=== PATIENT | female | born 1980 | race Caucasian/White ===

== ENCOUNTER → 2020-02-13 15:10 | Outpatient (CLI) | payer OTHER, SELFPAY ==
--- NOTE | 2020-02-13 15:13 | XR_ITS ---
PROCEDURE: XR FOOT LT MIN 3V CLINICAL INDICATION: PLANTAR FASCITIS COMPARISON: No exams were available for comparison FINDINGS: No fracture or dislocation. No lytic or blastic change. There is normal mineralization. The joint spaces are well-preserved. No significant degenerative/arthritic changes. No erosive changes evident. Other findings:None. IMPRESSION: No acute findings. Dictated by: Dr. He Rivero MD 02/13/2020 15:36 Dr. He Rivero MD in [place] 02/13/2020 15:36
== END ==
PROVIDERS: PCP Family Medicine; Visit Provider Nurse Practitioner Family
DX: M72.2 Plantar fascial fibromatosis (principal)
CPT/HCPCS: 73630

== ENCOUNTER 2020-05-31 21:42 | Emergency (ER) | payer OTHER, SELFPAY ==
[2020-05-31] VITALS (12 sets, daily range): BP systolic 103–160; BP diastolic 68–88; PULSE 78–109; RESP 12–22; TEMP 36.6; O2SAT 95–100; BMI 23.8; BMI 29.1
--- NOTE | 2020-05-31 21:56 | XR_ITS ---
PROCEDURE: XR ANKLE RT MIN 3V Referring Doctor: Gildardo Terry Patient Age:39Y CLINICAL INDICATION: fall Sledding accident with dislocation COMPARISON: DX XR FOOT LT MIN 3V from 02/13/2020 CR XR ANKLE RT MIN 3V from 05/31/2020 TECHNIQUE: Right ankle: Portable 3 View: AP, Oblique lateral and:, Lateral FINDINGS: Severe dislocation of the proximal foot, with most evident dislocation and distraction at talar-navicular joint. The navicular has dislocated dorsal and medial relative to the talus.. this is best seen on the AP view-this dislocation results in prominent medial/Varus tilt of the forefoot Would be suspect of some associated subluxation/displacement of the cuboid relative to the calcaneus as well although this is less well-defined The ankle joint itself is intact. Specifically tibial talar joint is intact IMPRESSION: Severe dislocation proximal right foot. . Most severe prominent and evident dislocation is seen at the talar navicular joint . Prominent medial/Varus tilt of the forefoot distal to this point Dictated by: Piter Jasso MD 06/01/2020 15:11 Piter Jasso MD in [place] 06/01/2020 15:11
--- NOTE | 2020-05-31 22:06 | XR_ITS ---
PROCEDURE: XR ANKLE RT MIN 3V Referring Doctor: Gildardo Terry Patient Age:39Y CLINICAL INDICATION: Post reduction COMPARISON: CR XR ANKLE RT MIN 3V from 05/31/[address] FOOT RT WO CON from 05/31/2020 TECHNIQUE: Right ankle 3 View AP, Oblique, Lateral FINDINGS: Post reduction right ankle images performed at 2212 hours compared to the initial right ankle study at 2158 hours Previously there was severe dislocation seen at the proximal foot with complete dislocation of the tarsal navicular from the talus. There was dorsal medial dislocation of tarsal navicular versus talus This study shows at anatomical relationships have been reestablished at the talar-navicular joint There seems to be normal relationships and appropriate articulation between the cuboid and distal calcaneus evident as well on this series of images. The ankle mortise remains stable and intact-dome of talus intact, medial and lateral malleolus intact. Only question some minor roughening at the medial margin of the talus which could reflect a subtle fracture here. No prominent displaced fractures readily apparent on plain film but would recommend CT to further evaluate given the severe injury IMPRESSION: The severe dislocation has been reduced with normal relationships reestablished at the talus-navicular articulation Dictated by: Piter Jasso MD 06/01/2020 20:35 Piter Jasso MD in [place] 06/01/2020 20:35
--- NOTE | 2020-05-31 22:36 | HMH.EDLOEX ---
ED Disposition Clinical Impression: Closed dislocation of right talus Qualifiers: Encounter type: initial encounter Qualified Code(s): S93.04XA - Dislocation of right ankle joint, initial encounter Talar fracture Qualifiers: Encounter type: initial encounter Fracture type: closed Talus location: unspecified portion of talus Fracture alignment: displaced Laterality: right Qualified Code(s): S92.101A - Unspecified fracture of right talus, initial encounter for closed fracture Calcaneus fracture, right Qualifiers: Encounter type: initial encounter Calcaneus location: unspecified portion of calcaneus Fracture type: closed Fracture alignment: displaced Qualified Code(s): S92.001A - Unspecified fracture of right calcaneus, initial encounter for closed fracture Disposition: Home, Self-Care Condition on Discharge: Serious Instructions: DI for Foot Fracture Additional Instructions: elevate and ice and see dr mnotaño 1100 am wednesday Prescriptions: Ketorolac Tromethamine [Toradol 10mg tablet] 10 mg PO Q6H 3 Days #12 tab [facility] ondansetron HCL [Zofran 4mg Tab] 4 mg PO Q6H #20 tab Transmission Status: [facility] Referrals: Sebastien Damon MD [Primary Care Provider] - - Critical Care Critical Care Time: No Attestation: On 05/31/20, the high probability of a clinically significant, sudden or life threatening deterioration of the following system(s) required my full and direct attention, intervention and personal management. The time I documented below is in addition to time spent performing reported procedures but includes the following listed in this critical care notation. Medical Decision Making - Medical Records Medical records reviewed: Yes: I reviewed the patient's medical records. - Sacha Inquiry Pt receiving controlled substance: No Vital Signs: 05/31/20 21:44 Temperature 97.8 F Temperature Source Oral Pulse Rate [Right] 108 H Respiratory Rate 22 Blood Pressure [Right Arm] 160/75 H Blood Pressure Mean [Right Arm] 103 02 Sat by Pulse Oximetry 98 - Lab Data Lab results reviewed: Yes: I reviewed the patient's lab results. Orders (Tests/Meds): ED MEDICATIONS Discontinued Medications Generic Name Dose Route Start Last Admin Trade Name Freq PRN Reason Stop Dose Admin Hydromorphone HCl 1 mg 05/31/20 23:38 05/31/20 23:40 Hydromorphone 2mg/Ml Syringe IV 05/31/20 23:39 1 mg ONCE ONE Administration Morphine Sulfate 4 mg 05/31/20 21:56 05/31/20 21:56 Morphine 4mg/Ml Syringe IV 05/31/20 21:57 4 mg ONCE ONE Administration Ondansetron HCl 4 mg 05/31/20 21:56 05/31/20 21:56 Ondansetron 4mg/2ml Vial IV 05/31/20 21:57 4 mg ONCE ONE Administration ORDERS Category Date Time Status CT ankle RT wo con Stat Cat Scan 05/31/20 22:[address] foot RT wo con Stat Cat Scan 05/31/20 22:40 Taken Ankle XR -Right minimum 3 Views [XR ankle RT min 3V] Exams 05/31/20 21:56 Taken Stat Ankle XR -Right minimum 3 Views [XR ankle RT min 3V] Exams 05/31/20 22:06 Taken Stat - Radiology Data #1 Image(s): Ankle, Foot/Toes Image Reviewed: Yes I reviewed the patient's radiology image Preliminary Findings: Abnormal (dislocation talar) - CT Data CT Scan: Other (foot and ankle ) Time Received: 00:[address] Reviewed: Yes: I have viewed the radiologist's interpretation Preliminary Findings: Abnormal (see report ) - Physician Consults Physician Consulted: sabra Reason -: Pt condition - Reevaluation(s) Time: 00:04 Reevaluation #1: doing better Medical Decision Narrative: fracture talusand fx calcaneus - reduced and no wt bearing and see dr montaño 1100 am wednesday Lower Extremity Injury HPI - General Chief Complaint: Extremity Injury, Lower Stated Complaint: AO [id number] Injured R ankle Time Seen by Provider: 05/31/20 21:45 Mode of Arrival: Wheelchair Source of Information: Mateo
--- NOTE | 2020-05-31 22:40 | CT_ITS ---
PROCEDURE: CT FOOT RT WO CON CT ANKLE RT WO CON Referring Doctor: Gildardo Terry Patient Age:39Y CLINICAL HISTORY: accident Sledding accident dislocated foot at talar navicular joint. Marcy reduction CT COMPARISON: DX XR FOOT LT MIN 3V from 02/13/[address] ANKLE RT WO CON from 05/31/[address] FOOT RT WO CON from 05/31/2020 CR XR ANKLE RT MIN 3V from 05/31/2020 CR XR ANKLE RT MIN 3V from 05/31/2020 TECHNIQUE: No IV contrast Helical axial images obtained with sagittal and coronal reformats. All CT scans at the facility use one or more dose reduction, viz: automated exposure control, ma/kV adjustment per patient size (including targeted exams where dose is matched to indication, i.e. head), or iterative reconstruction technique. FINDINGS: The CT images of ankle and foot were obtained post reduction CT RIGHTANKLE: Right ankle mortise intact dome of talus intact medial lateral and posterior malleolus intact. Medial right talus fracture: Acute fracture fragment along medial posterior aspect the talus, at posterior facet... The main fracture fragment measuring up to 10 mm AP x 11 mm vertical X nearly 6 mm maximum transverse, with small comminuted fracture fragments along its anterior margin. Also small erna flake fragment posteriorly. Minimal distraction along fracture/only scant displacement Again the slight comminuted appearance seen mainly along its anterior aspect but also noted posteriorly.. This the This fracture fragment may impinge upon the course of the flexor hallucis longus tendon.. There is also subtle very thin flake, cortical sliver fragment measure up to 7 mm transverse the a 5 mm AP seen at the medial subtalar joint associated with this injury. Lateral calcaneus fracture: Laterally there is a subtle fracture off the superior lateral aspect margin of the anterior process calcaneus. Mildly comminuted. A a displaced dominant fracture fragment measuring 8 mm X a 11 mm AP x 2 mm wide with approximately 1 cm superior displacement, CT RIGHTFOOT IMAGES: Forefoot intact with no fractures. The toes, MTP joints, metatarsal, tarsal-metatarsal joints and intact but the distal tarsals appear intact specifically cuneiforms and cuboid intact. Question a very subtle nondisplaced fracture line of involving superior cortex at the lateral navicular the but equivocal but noted. IMPRESSION: CT RIGHT ANKLE: -MEDIAL TALUS FRACTURE-mildly displaced comminuted fracture involving the medial process the talus. Tiny comminuted fracture fragments a about its margin. Possible impingement at of this fracture upon flexor hallucis longus tendon. . Subtle very thin linear flake fracture medial subtalar joint. -LATERAL CALCANEUS FRACTURE- Comminuted fracture with displaced fracture involving the lateral/superior margin of the anterior process of the calcaneus. The dominant fracture here measures 8 X 11 X 2 mm with approximately 1 cm superior displacement. . Only questionable nondisplaced hairline fracture at superior cortex medial navicular the a seen on coronal ankle images. CT RIGHT foot: Forefoot intact, distal tarsals intact I would note that at anatomic relationships have reestablished at talar navicular joint on this post reduction CT study right ankle/foot Dictated by: Piter Jasso MD 06/01/2020 15:36 Piter Jasso MD in [place] 06/01/2020 15:36
--- NOTE | 2020-05-31 22:40 | CT_ITS ---
PROCEDURE: CT FOOT RT WO CON CT ANKLE RT WO CON Referring Doctor: Gildardo Terry Patient Age:39Y CLINICAL HISTORY: accident proximal foot talar navicular joint Sledding accident dislocated foot at talar navicular joint. Post reduction CT imaging COMPARISON: DX XR FOOT LT MIN 3V from 02/13/2020 CR XR ANKLE RT MIN 3V from 05/31/[address] ANKLE RT WO CON from 05/31/2020 CR XR ANKLE RT MIN 3V from 05/31/[address] FOOT RT WO CON from 05/31/2020 TECHNIQUE: No IV contrast Helical axial images obtained with sagittal and coronal reformats. All CT scans at the facility use one or more dose reduction, viz: automated exposure control, ma/kV adjustment per patient size (including targeted exams where dose is matched to indication, i.e. head), or iterative reconstruction technique. FINDINGS: The CT images of Right Ankle And Foot were obtained post reduction CT RIGHTANKLE: Right ankle mortise intact dome of talus intact medial lateral and posterior malleolus intact. MEDIAL RIGHT TALUS FRACTURE: Acute fracture fragment along medial posterior aspect the talus, at posterior facet... The main fracture fragment measuring up to 10 mm AP x 11 mm vertical X nearly 6 mm maximum transverse, with small comminuted fracture fragments along its anterior margin. Also small erna flake fragment posteriorly. Minimal distraction along fracture/only scant displacement Again the slight comminuted appearance seen mainly along its anterior aspect but also noted posteriorly.. This the This fracture fragment may impinge upon the course of the flexor hallucis longus tendon.. There is also subtle very thin flake, cortical sliver fragment measure up to 7 mm transverse the a 5 mm AP seen at the medial subtalar joint associated with this injury. LATERAL CALCANEUS FRACTURE: Laterally there is a subtle fracture off the superior lateral aspect margin of the anterior process calcaneus. Mildly comminuted. A a displaced dominant fracture fragment measuring 8 mm X a 11 mm AP x 2 mm wide with approximately 1 cm superior displacement, CT RIGHT FOOT IMAGES: Forefoot intact with no fractures. The toes, MTP joints, metatarsal, tarsal-metatarsal joints and intact but the distal tarsals appear intact specifically cuneiforms and cuboid intact. Question a very subtle nondisplaced fracture line of involving superior cortex at the lateral navicular the but equivocal but noted. IMPRESSION: CT RIGHT ANKLE: -MEDIAL TALUS FRACTURE-mildly displaced comminuted fracture involving the medial process the talus with tiny comminuted fracture fragments about the dominant fragment. Possible impingement at of this fracture upon flexor hallucis longus tendon. . Subtle very thin linear flake fracture seen at medial subtalar joint. -LATERAL CALCANEUS FRACTURE- Comminuted fracture with displaced fracture involving the lateral/superior margin of the anterior process of the calcaneus. The dominant fracture here measures 8 X 11 X 2 mm with approximately 1 cm superior displacement. . Only questionable nondisplaced hairline fracture at superior cortex medial navicular the a seen on coronal ankle images. CT RIGHT foot: Remaining forefoot intact, distal metatarsals intact. Toes intact Also note that this post reduction CT does shows that anatomic relationships were reestablished at this talar navicular joint from the prior severe dislocation at the talar navicular joint. Dictated by: Piter Jasso MD 06/01/2020 21:32 Piter Jasso MD in [place] 06/01/2020 21:32
--- NOTE | 2020-05-31 22:43 | PC.NURSE ---
justyn on phone with dr montaño @ this time
[2020-06-01 00:51] VITALS: BP 130/90; PULSE 89; RESP 16; TEMP 36.5; O2SAT 97
== END 2020-06-01 00:53 | disposition home or self-care (01) ==
PROVIDERS: Emergency Provider Emergency Medicine; PCP Family Medicine
DX: S92.001A Unspecified fracture of right calcaneus, initial encounter for closed fracture (principal); S92.101A Unspecified fracture of right talus, initial encounter for closed fracture; S93.04XA Dislocation of right ankle joint, initial encounter; W00.0XXA Fall on same level due to ice and snow, initial encounter; Y93.23 Activity, snow (alpine) (downhill) skiing, snowboarding, sledding, tobogganing and snow tubing; Y92.89 Other specified places as the place of occurrence of the external cause; F17.210 Nicotine dependence, cigarettes, uncomplicated
CPT/HCPCS: 29515; 73610; 73700; 96375; 96376; 99152; 99153; 99285; J2405

== ENCOUNTER → 2020-06-03 12:24 | Outpatient (CLI) | payer OTHER, SELFPAY ==
--- NOTE | 2020-06-03 12:37 | XR_ITS ---
PROCEDURE: XR CHEST 2V CLINICAL HISTORY: COUGH COMPARISON: No exams were available for comparison FINDINGS: The cardiomediastinal silhouette and pulmonary vascularity are within normal limits. The lungs are clear without infiltrates, suspicious nodules, or pleural effusions. No acute bony abnormalities. IMPRESSION: No acute findings. Dictated by: Shade Stephens MD 06/03/2020 13:00 Shade Stephens MD in [place] 06/03/2020 13:00
--- NOTE | 2020-06-03 13:06 | ECG_ITS ---
APPROVED REPORT Exam: Resting ECG HR:88 bpm ECG Measurements Heart Rate 88 AXES NM 130 P 65 QRSd 80 QRS 83 QT 362 T 60 QTc 438 Conclusion Normal sinus rhythm Normal ECG Electronically signed by : Danny Bhatti, 06/03/2020 14:58:28
[2020-06-03 13:55] LABS: Basophils % 0.5 % (0.1-2.0); Eosinophils # 0.1 K/mm3 (0.0-0.4); Eosinophils % 0.9 % (0.1-12.0); Hematocrit 42.9 % (37.0-47.0); Lymphocytes # 2.1 K/mm3 (0.7-4.5); Lymphocytes % 27.1 % (10-50); Mean Corpuscular HGB Conc 32.6 g/dL (31.8-35.4); Mean Corpuscular Hemoglobin 29.2 pg (27.0-31.2); Mean Corpuscular Volume 89.4 fl (81-99); Monocytes # 0.4 K/mm3 (0.1-1.0); Monocytes % 5.4 % (1.7-9.3); Neutrophils # 5.2 K/mm3 (1.8-7.8); Neutrophils % 66.1 % (37.0-80.0); Platelet Count 274 K/mm3 (142-424); Red Blood Count 4.79 M/mm3 (4.20-5.40); Red Cell Distribution Width 13.1 % (11.5-17.5); White Blood Count 7.9 K/mm3 (4.8-10.8)
[2020-06-03 14:13] LABS: Chloride 105 mmol/L (98-107); Potassium 3.9 mmoL/L (3.5-5.1); Sodium 143 mmol/L (136-145)
[2020-06-03 14:15] LABS: Blood Urea Nitrogen 11 mg/dl (7-17); Estimated Glomerular Filt Rate 93 ml/min (>60); GFR (African American) 113 ML/MIN (>60)
[2020-06-03 14:16] LABS: Alanine Aminotransferase 102 U/L (12-78); Albumin Level 4.4 g/dl (3.5-5.0); Albumin/Globulin Ratio 1.6 (1.1-1.8); Alkaline Phosphatase 100 U/L (38-126); Anion Gap 9.9 mEq/L (5-15); Aspartate Amino Transferase 51 U/L (14-36); Bilirubin,Total 0.7 mg/dl (0.2-1.3); Calcium 9.7 mg/dl (8.4-10.2); Carbon Dioxide 32 mmol/L (22.0-30.0); Globulin 2.8 g/dL (1.3-3.2); Glucose 97 mg/dl (74-100); Total Protein,Serum 7.2 g/dl (6.3-8.2)
[2020-06-03 14:30] LABS: Coronavirus 19 IgG Antibody Negative (Negative); Coronavirus 19 IgM Antibody Negative (Negative)
[2020-06-03 14:32] LABS: 25-OH Vitamin D, Total 29.3 ng/mL (30-100)
== END ==
PROVIDERS: PCP Family Medicine; Visit Provider Podiatrist
DX: Z01.818 Encounter for other preprocedural examination (principal); Z20.822 Contact with and (suspected) exposure to COVID-19; S92.121A Displaced fracture of body of right talus, initial encounter for closed fracture; S92.254A Nondisplaced fracture of navicular [scaphoid] of right foot, initial encounter for closed fracture; S93.04XA Dislocation of right ankle joint, initial encounter; E55.9 Vitamin D deficiency, unspecified
CPT/HCPCS: 36415; 71046; 80053; 82306; 85025; 86328; 93005

== ENCOUNTER 2020-06-05 06:07 | Day surgery (SDC) | payer OTHER, SELFPAY ==
[2020-06-03 15:41] VITALS: BMI 24.5
[2020-06-05] VITALS (12 sets, daily range): BP systolic 120–138; BP diastolic 67–87; PULSE 84–106; RESP 16–18; TEMP 36.2–43; O2SAT 94–100
--- NOTE | 2020-06-05 08:11 | P.PN_ITS ---
[facility] Anesthesia Checklist - Structural Data Admitted From: Home Planned Operative Procedure/s: orif r foot Consent for Planned Operative Procedure(s) Verified: Yes - Additional verifications Anesthesia Reactions: Yes (nausea) Hx Blood Transfusions: No Blood Transfusion Reaction: No - Airway Assessment C-Spine Mobility Assessed: Yes TMJ Mobility Assessed: Yes Dentition: Good Dentition - Neurological Assessment Level of Consciousness: Awake, Alert, Appropriate - Anesthesia Plan Anesthesia Risk discussed: Yes Anesthesia Plan: Verified ASA Class: II Anesthesia Type: General w/block [facility] History I have reviewed the patient's past medical history: Yes 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: Denies:: Anxiety, Cancer, Depression, Diabetes Mellitus Type 1, Diabetes Mellitus Type 2, Hypertension, Internal Pacemaker, MRSA, Palpitations, Seizures *Have you ever received a pneumonia vaccine?: No *Have you received a flu vaccine this season?: Yes Other 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: Denies: Blood Transfusion Reaction Anesthesia experience/problems:: none Laterality Cases: Bilateral: Tonsillectomy Other Surgeries: Yes: Hysterectomy-Total. No: Pacemaker Amputation: No Fractures: No - *Social History Last grade of school completed: Some college Smoking Status: Never smoker # Packs/Day (cigarettes): 1 Alcohol Intake: never Alcohol Intake Frequency:: holidays/special occasions only Substance Use Type: denies use *Occupational Status:: employed Housing: house Household Members: spouse *Travel in the last 8 weeks: None - Psychiatric History Pschychiatric History:: Denies:: Anxiety, Depression Family Hx:: Cancer
--- NOTE | 2020-06-05 09:26 | XR_ITS ---
PROCEDURE: XR FOOT RT MIN 3V CLINICAL INDICATION: Post op ORIF Follow-up surgery COMPARISON: DX XR FOOT LT MIN 3V from 02/13/[address] ANKLE RT WO CON from 05/31/2020 CR XR ANKLE RT MIN 3V from 05/31/2020 CR XR ANKLE RT 2V from 06/05/2020 CR XR ANKLE RT MIN 3V from 06/05/2020 FINDINGS: Artifact is present from the posterior splint. 2 screws are present within the medial aspect of the talus. There is good alignment. Previously noted calcaneal fracture as seen on previous CT scan not well demonstrated on these images C-arm images are also reviewed showing 2 screws within the medial aspect of the talus with good alignment. IMPRESSION: Good alignment status post ORIF talar fracture Dictated by: Shade Stephens MD 06/05/2020 17:16 Shade Stephens MD in [place] 06/05/2020 17:16
--- NOTE | 2020-06-05 09:59 | P.PN_ITS ---
[facility] Anesthesia Record Part I Intake, IV Amount: 1,500 Estimated blood loss (mL): 15 Urine output (mL): 0 Blood Pressure: 120/72 SaO2: 94 Pulse Rate: 99 Respiratory Rate: 16 Temperature: 99.4 F Patient is:: Drowsy, Stable Stable to PACU at:: 09:55
--- NOTE | 2020-06-05 10:52 | HMH.OPNOTE ---
Date of procedure: 06/05/20 Pre-op Diagnosis:: 1. Right talus fracture 2. Right calcaneal fracture 3. Right nondisplaced navicular fracture 4. Right FHL impingement 5. Right spring ligament partial tear Post-op Diagnosis:: Same Procedure performed:: 1. Right talus ORIF 2. Right excision of talus fracture fragment 3. Right excision of calcaneus fracture fragment 4. Right FHL release, debridement 5. Right spring ligament repair 6. Right foot synovectomy 7. Application of graft 8. Application of posterior splint Surgeon:: Maria Alejandra Murry DPM Adult Care Provider(s):: Татьяна Dominguez ESOL INSTRUCTOR:: Ruy Ortiz Anesthesia: GETA, regional (Right popliteal, saph nerve block) Estimated blood loss (mL): 20 Clinical Note:: Right talus, calcaneus fracture pre-op. The patient is a 39-year-old female who was sledding on 05/31/2020. Unfortunately she was being told up the hill and hit the flatbed of a truck. She had immediate pain and deformity. She went to the ED where her boot was cut off. She had a talonavicular dislocation which was reduced and splinted. Images taken. X-rays pre and post reduction right ankle multiple views from 05/31/2020, evaluated by myself. Reports noted. FINDINGS: Severe dislocation of the proximal foot, with most evident dislocation and distraction at talar-navicular joint. The navicular has dislocated dorsal and medial relative to the talus. This is best seen on the AP view this dislocation results in prominent medial/Varus tilt of the forefoot. Would be suspect of some associated subluxation/displacement of the cuboid relative to the calcaneus as well although this is less well-defined. The ankle joint itself is intact. Specifically tibial talar joint is intact. IMPRESSION: Severe dislocation proximal right foot. Most severe prominent and evident dislocation is seen at the talar navicular joint. Prominent medial/Varus tilt of the forefoot distal to this point. FINDINGS: Post reduction right ankle images performed at 2212 hours compared to the initial right ankle study at 2158 hours. Previously there was severe dislocation seen at the proximal foot with complete dislocation of the tarsal navicular from the talus. There was dorsal medial dislocation of tarsal navicular versus talus. This study shows at anatomical relationships have been reestablished at the talar-navicular joint. There seems to be normal relationships and appropriate articulation between the cuboid and distal calcaneus evident as well on this series of images. The ankle mortise remains stable and intact-dome of talus intact, medial and lateral malleolus intact. Only question some minor roughening at the medial margin of the talus which could reflect a subtle fracture here. No prominent displaced fractures readily apparent on plain film but would recommend CT to further evaluate given the severe injury. IMPRESSION: The severe dislocation has been reduced with normal relationships reestablished at the talus-navicular articulation. CT right foot and ankle, evaluated by myself. FINDINGS: The CT images of Right Ankle And Foot were obtained post reduction. CT RIGHT ANKLE: Right ankle mortise intact dome of talus intact medial lateral and posterior malleolus intact. MEDIAL RIGHT TALUS FRACTURE: Acute fracture fragment along medial posterior aspect the talus, at posterior facet. The main fracture fragment measuring up to 10 mm AP x 11 mm vertical X nearly 6 mm maximum transverse, with small comminuted fracture fragments along its anterior margin. Also small erna flake fragment posteriorly. Minimal distraction along fracture/only scant displacement. Again the slight comminuted appearance seen mainly along its anterior aspect but also noted posteriorly. This fracture fragment may impinge upon the course of the flexor hallucis longus tendon. There is also subtle very thin flake, cortical sliver fragment measure up to 7 mm transverse the a 5 mm AP seen at the medial subtalar joint associated with this injury. LATERA
--- NOTE | 2020-06-06 12:36 | HMH.ANESII ---
[facility] Anesthesia Record Part II Discharge Time: 10:25 Destination: Surgical Day Care (OP Surgery) PACU nurse assessment reviewed?: Yes Patient Condition:: Good Anesthesia Complications:: None Swallowing reflex intact?: Yes Cyanosis?: No Blood Pressure: 129/67 Pulse Rate: 96 Temperature: 99.4 F Mental Status: Alert & Oriented Pain level:: 0 Nausea and/or vomitting:: Nauseated Intake, IV Amount: 0
[2020-06-06 12:37] VITALS: BP 129/67; PULSE 96; TEMP 37.4
== END 2020-06-05 11:35 | disposition home or self-care (01) ==
LOC: OR 06:07
PROVIDERS: PCP Family Medicine; Visit Provider Podiatrist
PROC: (CPT 28445; principal; 2020-06-05 07:30)
DX: S92.151A Displaced avulsion fracture (chip fracture) of right talus, initial encounter for closed fracture (principal); S92.191A Other fracture of right talus, initial encounter for closed fracture; Y93.23 Activity, snow (alpine) (downhill) skiing, snowboarding, sledding, tobogganing and snow tubing
CPT/HCPCS: 28445; C5271; 73600; 73610; 73630; 76000; 96374; C1713; C1762; J2405; Q4211

== ENCOUNTER → 2020-06-25 11:01 | Outpatient (CLI) | payer OTHER, SELFPAY ==
--- NOTE | 2020-06-25 11:06 | XR_ITS ---
PROCEDURE: XR FOOT WT BEARING RT 3V CLINICAL INDICATION: post-op Follow-up surgery COMPARISON: DX XR FOOT LT MIN 3V from 02/13/2020 CR XR FOOT RT MIN 3V from 06/05/2020 CR XR ANKLE RT MIN 3V from 06/05/2020 FINDINGS: Posterior splint is in place with good alignment. The splint obscures much of the bony detail of the foot on the AP and oblique view. [address] within the posterior aspect of the talus Other findings:None. IMPRESSION: Good alignment with posterior splint in place and 2 screws within the talus Dictated by: Shade Stephens MD 06/25/2020 15:20 Shade Stephens MD in [place] 06/25/2020 15:20
== END ==
PROVIDERS: PCP Family Medicine; Visit Provider Podiatrist
DX: Z98.890 Other specified postprocedural states (principal); G89.18 Other acute postprocedural pain; R60.9 Edema, unspecified; S92.254D Nondisplaced fracture of navicular [scaphoid] of right foot, subsequent encounter for fracture with routine healing; S93.04XA Dislocation of right ankle joint, initial encounter; S92.021A Displaced fracture of anterior process of right calcaneus, initial encounter for closed fracture
CPT/HCPCS: 73630

== ENCOUNTER → 2020-07-11 14:15 | Outpatient (CLI) | payer OTHER, SELFPAY ==
--- NOTE | 2020-07-11 14:18 | XR_ITS ---
PROCEDURE: XR ANKLE WT BEARING RT MIN 3V CLINICAL INDICATION: postop views COMPARISON: CR XR ANKLE RT MIN 3V from 05/31/2020 CR XR ANKLE RT MIN 3V from 05/31/2020 CR XR ANKLE RT 2V from 06/05/2020 CR XR ANKLE RT MIN 3V from 06/05/2020 FINDINGS: Screws are noted in the talus. The ankle mortise is congruent and the lateral clear space is preserved. No acute fractures or dislocation. Mild osteopenia. IMPRESSION: Internal fixation of the talus. Otherwise unremarkable study. Dictated by: Dina Wasserman 07/11/2020 16:21 Dina Wasserman in [place] 07/11/2020 16:21
== END ==
PROVIDERS: PCP Family Medicine; Visit Provider Podiatrist
DX: Z98.890 Other specified postprocedural states (principal)
CPT/HCPCS: 73610

== ENCOUNTER → 2020-08-08 09:59 | Outpatient (CLI) | payer OTHER, SELFPAY ==
--- NOTE | 2020-08-08 10:02 | XR_ITS ---
PROCEDURE: XR FOOT WT BEARING RT 3V CLINICAL INDICATION: post-op COMPARISON: DX XR FOOT LT MIN 3V from 02/13/2020 CR XR FOOT RT MIN 3V from 06/05/2020 CR XR FOOT WT BEARING RT 3V from 06/25/2020 CR XR ANKLE WT BEARING RT MIN 3V from 07/11/2020 FINDINGS: There is diffuse generalized osteopenia. The cast has been removed. There are 2 screws within the calcaneus from the medial approach The joint spaces are well-preserved. No significant degenerative/arthritic changes. No erosive changes evident. Other findings:None. IMPRESSION: Postsurgical changes with 2 screws in the calcaneus with diffuse osteopenia and interval removal of the posterior splint. Dictated by: Shade Stephens MD 08/08/2020 10:25 Shade Stephens MD in [place] 08/08/2020 10:25
== END ==
PROVIDERS: PCP Family Medicine; Visit Provider Podiatrist
DX: Z98.890 Other specified postprocedural states (principal); S92.245D Nondisplaced fracture of medial cuneiform of left foot, subsequent encounter for fracture with routine healing
CPT/HCPCS: 73630

== ENCOUNTER → 2020-08-09 13:00 | Outpatient (CLI) | payer OTHER, SELFPAY ==
--- NOTE | 2020-08-09 13:01 | CT_ITS ---
PROCEDURE: CT FOOT RT WO CON CLINICAL HISTORY: evaluate for fracture healing Pain r talus Unable to bear weight S/p orif COMPARISON: CT CT ANKLE RT WO CON from 05/31/2020 CR XR ANKLE RT MIN 3V from 05/31/2020 CR XR FOOT WT BEARING RT 3V from 08/08/2020 TECHNIQUE: Axial images obtained with sagittal and coronal reformats. All CT scans at the facility use one or more dose reduction, viz: automated exposure control, ma/kV adjustment per patient size (including targeted exams where dose is matched to indication, i.e. head), or iterative reconstruction technique. FINDINGS: Two screws have been placed into the medial aspect of the talus. Small fragments are present at this area with reduction of the main fracture fragment which is in good alignment opposing the medial aspect of the talus. Small fracture fragments are present just anterior to this area. Small fracture fragments are present along the lateral aspect of the talus centrally not significantly changed. Nondisplaced avulsion fracture dirty of the distal and lateral aspect of the calcaneus once again noted not significantly changed. There is diffuse osteopenia of the tarsal bones and metatarsals. There is a mild amount of edema about the ankle on both sides. IMPRESSION: 1. Status post ORIF of the medial talar fracture with good alignment of the main fracture fragment. 2. No change in the avulsion fractures of the calcaneus and the mid aspect of the talus laterally. 3. Diffuse osteopenia 4. Good alignment of the tarsal bones Dictated by: Shade Stephens MD 08/12/2020 08:59 Shade Stephens MD in [place] 08/12/2020 08:59
== END ==
PROVIDERS: PCP Family Medicine; Visit Provider Podiatrist
DX: S93.04XD Dislocation of right ankle joint, subsequent encounter (principal); G89.18 Other acute postprocedural pain; Z98.890 Other specified postprocedural states
CPT/HCPCS: 73700

== ENCOUNTER 2020-10-16 11:00 | Outpatient (RCR) | payer OTHER, SELFPAY ==
--- NOTE | 2020-07-23 09:55 | HMH.PTOPEV ---
PT Outpatient Evaluation Rehab PT Outpatient Evaluation Start: 07/23/20 09:06 Freq: Status: Active Protocol: Document 07/23/20 09:39 AMALIA (Rec: 07/23/20 09:55 AMALIA [id number]) Electronically Signed By Marquis Feng, PT 07/23/20 09:39 Outpatient Therapy Subjective History Subjective History Patient is a 39 year old female presenting to outpatient PT with reports of R foot/ankle pain/stiffness S/ P ORIF for R talus and calcaneal fracture. Initial injury occurred 05/31/20 in a sledding accident. Sx date (8w/2d S/P). Patient has been cleared to progress WBAT. No other comorbidities to report. Chief Complaint Pain,Stiff,Swelling, Paresthesia,Weakness Symptom Type Ache,Sharp,Dull,Stabbing, Numbness,Tingling Symptoms Relieved By Rest/Positioning,Ice,OTC Meds, Prescription Meds Symptoms Aggravated By Standing,Physical Activity, Walking Prior Functional Limitations None Current Functional Limitations Housework,Standing,Squatting, Recreation Activity,Walking, Stairs,Balance Symptom Description Constant but Variable Level of pain today (0-10) 2 Pain scale - at its best (0-10) 2 Pain scale - at its worst (0-10) 6 Ankle/Foot Eval Gait Observation General Gait Pattern Observation Antalgic Gait,Decrease Weight Bear (R) Assistive Device Ambulation Assistive Device Axillary Crutches Palpation Tenderness right Ankle/Foot Palpation Findings Tenderness Ankle/Foot Palpation Overall Comment M/L malleolus, surgical incisions 3/4 ROM Ankle/Foot Dorsiflexion w/Knee Extended -15 Active Range Motion (degrees) Ankle/Foot Dorsiflexion w/Knee Extended -12 Passive Range (degrees) Ankle/Foot Plantar Flexion Active Range 42 of Motion (degrees) Ankle/Foot Plantar Flexion Passive Range 48 of Motion (degrees) Ankle/Foot Eversion Active Range of 11 Motion (degrees) Ankle/Foot Eversion Passive Range of 20 Motion (degrees) Ankle/Foot Inversion Active Range of 11 Motion (degrees) Ankle/Foot Inversion Passive Range of 17 Motion (degrees) Ankle/Foot ROM Limitations Soft Tissue Tightness,Bony Restriction Great Toe ROM Reason No
== END 2020-10-16 11:05 | disposition home or self-care (01) ==
LOC: PT 11:00
PROVIDERS: PCP Family Medicine; Visit Provider Podiatrist
DX: S93.04XA Dislocation of right ankle joint, initial encounter; S92.001A Unspecified fracture of right calcaneus, initial encounter for closed fracture
CPT/HCPCS: 97010; 97014; 97110; 97112; 97116; 97140; 97163; 97164; G0283

== ENCOUNTER 2021-03-02 11:36 | Emergency (ER) | payer OTHER, SELFPAY ==
[2021-03-02 13:08] VITALS: BP 137/89; PULSE 100; RESP 18; TEMP 36.7; O2SAT 100; BMI 24.5
--- NOTE | 2021-03-02 13:08 | XR_ITS ---
PROCEDURE INFORMATION: Exam: XR Right Ankle Exam date and time: 03/02/2021 1:08 PM Age: 40 years old Clinical indication: Injury or trauma; Fall; Blunt trauma; Ankle; Right TECHNIQUE: Imaging protocol: XR Right ankle. Views: 3 or more views. COMPARISON: CR XR ANKLE WT BEARING RT MIN 3V 07/11/2020 2:24 PM FINDINGS: Tubes, catheters and devices: Changes of prior open reduction internal fixation of posterior talus, with partially threaded cannulated screws. Bones/joints: No evidence of acute hardware complications. No acute fracture or dislocation. Soft tissues: Mild medial ankle soft tissue swelling. IMPRESSION: 1. No acute fracture or dislocation. 2. Mild medial ankle soft tissue swelling.
--- NOTE | 2021-03-02 13:08 | XR_ITS ---
PROCEDURE INFORMATION: Exam: XR Left Foot Exam date and time: 03/02/2021 1:08 PM Age: 40 years old Clinical indication: Injury or trauma; Fall; Blunt trauma; Foot; Left TECHNIQUE: Imaging protocol: XR Left foot. Views: 3 or more views. COMPARISON: DX XR FOOT LT MIN 3V 02/13/2020 3:20 PM FINDINGS: Bones/joints: Normal. Soft tissues: Normal. IMPRESSION: No acute findings.
--- NOTE | 2021-03-02 14:18 | HMH.EDUTC ---
[facility] [place]: [place] Qualifiers: Encounter type: initial encounter Qualified Code(s): W19.XXXA - Unspecified fall, initial encounter Sprain of left foot Qualifiers: Encounter type: initial encounter Qualified Code(s): S93.602A - Unspecified sprain of left foot, initial encounter Right ankle sprain Qualifiers: Encounter type: initial encounter Involved ligament of ankle: unspecified ligament Qualified Code(s): S93.401A - Sprain of unspecified ligament of right ankle, initial encounter Disposition: Home, Self-Care Condition on Discharge: Good Instructions: DI for Ankle Sprain, DI for Foot Sprain Additional Instructions: Rest the extremity, apply ice for 15 minutes as tolerated three or four times per day, Elevate the extremity as tolerated while you are resting. Rest and stay off your feet as much as possible for the next few days. Take ibuprofen for pain. I sent in a prescription to your pharmacy. Follow up with Dr. Murry (podiatry).I put in a referral but you need to call her office and schedule an appointment. Follow up with your regular doctor. GO TO THE ER FOR ANY WORSENING SYMPTOMS Prescriptions: Ibuprofen [Ibuprofen 600mg Tablet] 600 mg PO Q6HP PRN #30 tab PRN Reason: Mild Pain Transmission Status: Received [id number] Referrals: Sebastien Damon MD [Primary Care Provider] - Maria Alejandra Murry DPM [Staff Physician] - Forms: Work/School Release Time of Disposition: 14:21 Medical Decision Making - Medical Records Medical records reviewed: No: I reviewed the patient's medical records. - Sacha Inquiry Pt receiving controlled substance: No Vital Signs: 03/02/21 13:08 03/02/21 14:29 Temperature 98.1 F 98.2 F Temperature Source Oral Oral Pulse Rate 100 H Pulse Rate [Right Brachial] 100 H Respiratory Rate 18 18 Blood Pressure 137/89 Blood Pressure [Right Arm] 137/89 Blood Pressure Mean [Right Arm] 105 Blood Pressure Source [Right Arm] Automatic Cuff Blood Pressure Position [Right Arm] Sitting 02 Sat by Pulse Oximetry 100 Oxygen Delivery Method Room Air Room Air [facility] [place] - General Stated complaint: ao fall 03/01/21 b/l foot pain Time Seen by Provider: 03/02/21 13:10 Mode of Arrival: Ambulatory Source of Information: Patient Limitations: No Limitations Description of Symptoms (Recalled from Triage Doc. by RN): left toe pain. right ankle pain HEENT Symptoms (Recalled from RN notes): No Resp Symptoms (Recalled from RN notes): No Skin Symptoms (Recalled from RN notes): No MS Symptoms (Recalled from RN notes): Yes Functional Status (Recalled from RN notes): yes - History of Present Illness Provider Complaint: She fell yesterday and twisted her right ankle and her left foot. She has had pain of these 2 areas since then. She states that is able to walk without difficulty, but she does have worsening pain when she walks or bears weight. - Related Data Home Medications Medication Instructions Recorded Confirmed Venlafaxine HCl [Effexor 37.5mg 37.5 mg PO DAILY 06/05/20 02/14/21 tablet] Previous Rx's Medication Instructions Recorded ibuprofen 800 mg tablet 800 mg PO BID 30 Days #60 tab 01/06/21 aripiprazole 5 mg tablet 5 mg PO QHS #30 tab 02/14/21 Ibuprofen [Ibuprofen 600mg 600 mg PO Q6HP PRN #30 tab 03/02/21 Tablet] Allergies Allergy/AdvReac Type Severity Reaction Status Date / Time No Known Allergies Allergy Verified 02/14/21 10:18 - Worker's Comp Is this a Worker's Comp case?: No Is this an [facility] Worker's Comp?: No Is this a [facility] Worker's Comp?: No H History - Hepatitis A Screen Drug use history?: No High risk sexual behaviors?: No History of sexually transmitted infection?: No Currently employed?: No Childcare worker?: No Do you have indoor plumbing?: Yes Do you have electricity?: Yes Attestation statement:: This patient has been screened for Hepatitis A risk factors. I have reviewe
[2021-03-02 14:29] VITALS: BP 137/89; PULSE 100; RESP 18; TEMP 36.8; O2SAT 100
== END 2021-03-02 14:29 | disposition home or self-care (01) ==
PROVIDERS: Emergency Provider Nurse Practitioner Family; PCP Family Medicine
DX: S93.602A Unspecified sprain of left foot, initial encounter (principal); S93.401A Sprain of unspecified ligament of right ankle, initial encounter; W01.0XXA Fall on same level from slipping, tripping and stumbling without subsequent striking against object, initial encounter; F41.9 Anxiety disorder, unspecified
CPT/HCPCS: 73610; 73630; 99202; G0463

== ENCOUNTER → 2021-06-10 07:10 | Outpatient (CLI) | payer OTHER, SELFPAY ==
--- NOTE | 2021-06-10 07:13 | XR_ITS ---
FINAL REPORT CLINICAL HISTORY: PAIN.no trauma COMPARISON: August 08, 2020 FINDINGS: RIGHT FOOT 3 weight-bearing views were obtained. There are postoperative changes in the talus. There is no acute fracture or dislocation. The joint spaces are intact. There is no soft tissue abnormality. IMPRESSION: No acute bony abnormality. Stable exam. Reviewed, Interpreted and Dictated by Bird Wren III, MD Transcribed by Tawanna Ortiz Authenticated by Bird Wren III, MD on 06/10/2021 09:19:12 AM [facility]
--- NOTE | 2021-06-10 07:13 | XR_ITS ---
FINAL REPORT CLINICAL HISTORY: PAIN, no trauma COMPARISON: March 02, 2021 FINDINGS: RIGHT ANKLE 3 weight-bearing views were obtained. There are postoperative changes with 2 screws through the talus, stable. There is no acute fracture or dislocation. The joint spaces are intact. There is no soft tissue abnormality. IMPRESSION: No acute bony abnormality. Stable postoperative changes. Reviewed, Interpreted and Dictated by Bird Wren III, MD Transcribed by Tawanna Ortiz Authenticated by Bird Wren III, MD on 06/10/2021 09:19:17 AM [facility]
== END ==
PROVIDERS: PCP Family Medicine; Visit Provider Podiatrist
DX: M25.571 Pain in right ankle and joints of right foot (principal)
CPT/HCPCS: 73610; 73630

== ENCOUNTER → 2021-07-08 09:33 | Outpatient (CLI) | payer OTHER, SELFPAY ==
--- NOTE | 2021-07-08 09:41 | CT_ITS ---
FINAL REPORT TECHNIQUE: Axial images through the right ankle was performed by computed tomography. Sagittal coronal reformatted images were obtained and reviewed. Three-D reformatted images were obtained. This study was performed with techniques to keep radiation doses as low as reasonably achievable (ALARA). Individualized dose reduction techniques using automated exposure control or adjustment of mA and/or kV according to the patient's size were employed. CLINICAL HISTORY: postoperative pain, hardware failure COMPARISON: 08/09/2020 FINDINGS: No acute fracture is identified. There are 2 screws in the medial aspect of the talus which are unchanged in appearance. The bones are osteopenic. The musculature is intact. No soft tissue fluid collection is identified. IMPRESSION: Postoperative changes, stable since previous. Reviewed, Interpreted and Dictated by Bird Wren III, MD Transcribed by Huma Junior Authenticated by Bird Wren III, MD on 07/08/2021 11:28:57 AM [facility]
== END ==
PROVIDERS: PCP Family Medicine; Visit Provider Podiatrist
DX: M25.571 Pain in right ankle and joints of right foot (principal); M19.171 Post-traumatic osteoarthritis, right ankle and foot; S92.001A Unspecified fracture of right calcaneus, initial encounter for closed fracture; S92.251A Displaced fracture of navicular [scaphoid] of right foot, initial encounter for closed fracture; S93.04XA Dislocation of right ankle joint, initial encounter
CPT/HCPCS: 73700

== ENCOUNTER 2021-08-11 12:34 | Emergency (ER) | payer OTHER, SELFPAY ==
[2021-08-11 12:35] VITALS: BP 141/86; PULSE 91; RESP 16; TEMP 36.8; O2SAT 100; BMI 24.5
--- NOTE | 2021-08-11 12:52 | CT_ITS ---
FINAL REPORT TECHNIQUE: After the administration of oral and intravenous contrast, axial images were obtained through the abdomen and pelvis by computed tomography. The study was performed with techniques to keep radiation dose as low as reasonably achievable, (ALARA). Individual dose reduction techniques using automated exposure control or adjustment of mA and/or kV according to the patient's size were employed. CLINICAL HISTORY: RLQ pain, h/o hysterectomy FINDINGS: Abdomen: There is mild bibasilar atelectasis. The liver is normal in size and attenuation. There is mild gallbladder wall thickening with questionable stones or sludge. No The spleen is unremarkable. The adrenals are normal. The pancreas is unremarkable. The kidneys enhance appropriately. The aorta is normal in caliber. There is no free fluid or adenopathy. Pelvis: The appendix is unremarkable. The patient is status post hysterectomy. The urinary bladder is unremarkable. There is no free fluid or adenopathy. IMPRESSION: Question stones or sludge in the gallbladder. If indicated, gallbladder ultrasound may be helpful. Reviewed, Interpreted and Dictated by Bird Wren III, MD Transcribed by Huma Junior Authenticated by Bird Wren III, MD on 08/11/2021 02:01:06 PM [facility]
--- NOTE | 2021-08-11 13:05 | PC.NURSE ---
Pt to rad
--- NOTE | 2021-08-11 13:06 | PC.NURSE ---
pt to rad.
[2021-08-11 13:14] LABS: Basophils # 0.1 K/mm3 (0-0.2); Basophils % 1.6 % (0.1-2.0); Eosinophils # 0.1 K/mm3 (0.0-0.4); Eosinophils % 1.2 % (0.1-12.0); Hematocrit 39.9 % (37.0-47.0); Hemoglobin 13.7 g/dL (12.2-16.2); Lymphocytes # 2.1 K/mm3 (0.7-4.5); Lymphocytes % 31.9 % (10-50); Mean Corpuscular HGB Conc 34.3 g/dL (31.8-35.4); Mean Corpuscular Hemoglobin 30.8 pg (27.0-31.2); Mean Corpuscular Volume 89.7 fl (81-99); Mean Platelet Volume 7.7 fl (7.4-10.4); Monocytes # 0.4 K/mm3 (0.1-1.0); Monocytes % 6.4 % (1.7-9.3); Neutrophils % 58.9 % (37.0-80.0); Platelet Count 264 K/mm3 (142-424); Red Blood Count 4.45 M/mm3 (4.20-5.40); Red Cell Distribution Width 13.2 % (11.5-17.5); White Blood Count 6.7 K/mm3 (4.8-10.8)
[2021-08-11 13:18] LABS: Chloride 107 mmol/L (98-107); Potassium 3.5 mmoL/L (3.5-5.1); Sodium 142 mmol/L (136-145)
[2021-08-11 13:20] LABS: Blood Urea Nitrogen 6 mg/dl (7-17); Creatinine Clearance Estimated 99 mL/min (50-200); Estimated Glomerular Filt Rate 93 ml/min (>60); GFR (African American) 112 ML/MIN (>60)
[2021-08-11 13:21] LABS: Microscopic, Urine URINE MICROSCOPIC (MICROSCOPIC)
[2021-08-11 13:21] LABS: Alanine Aminotransferase 31 U/L (12-78); Albumin Level 3.9 g/dl (3.5-5.0); Albumin/Globulin Ratio 1.5 (1.1-1.8); Alkaline Phosphatase 104 U/L (38-126); Anion Gap 9.5 mEq/L (5-15); Aspartate Amino Transferase 37 U/L (14-36); Bilirubin,Total 0.6 mg/dl (0.2-1.3); Calcium 9.1 mg/dl (8.4-10.2); Carbon Dioxide 29 mmol/L (22.0-30.0); Globulin 2.6 g/dL (1.3-3.2); Glucose 90 mg/dl (74-100); Lipase 86 U/L (23-300); Total Protein,Serum 6.5 g/dl (6.3-8.2)
--- NOTE | 2021-08-11 13:24 | HMH.EDGENADL ---
ED Disposition Clinical Impression: Biliary colic Urinary tract infection Qualifiers: Urinary tract infection type: acute cystitis Hematuria presence: with hematuria Qualified Code(s): N30.01 - Acute cystitis with hematuria Disposition: Home, Self-Care Condition on Discharge: Good Instructions: DI for Biliary Colic Prescriptions: Hydrocod/Acet 5/325 mg [[place] 5/325mg tablet] 1 tab PO Q6HP PRN #10 tab PRN Reason: Moderate Pain Transmission Status: [facility] to [facility] Ondansetron [Zofran 4mg ODT] 4 mg PO BIDP PRN #10 tab PRN Reason: Nausea Transmission Status: Pending to [facility] Referrals: Sebastien Damon MD [Primary Care Provider] - Aroldo Garcia MD [Staff Physician] - - Critical Care Critical Care Time: No Attestation: On 08/11/21, the high probability of a clinically significant, sudden or life threatening deterioration of the following system(s) required my full and direct attention, intervention and personal management. The time I documented below is in addition to time spent performing reported procedures but includes the following listed in this critical care notation. Medical Decision Making - Medical Records Medical records reviewed: Yes: I reviewed the patient's medical records. - Sacha Inquiry Pt receiving controlled substance: No Vital Signs: 08/11/21 12:35 Temperature 98.3 F Temperature Source Oral Pulse Rate [Right Radial] 91 H Respiratory Rate 16 Blood Pressure [Right Arm] 141/86 H Blood Pressure Mean [Right Arm] 104 Blood Pressure Source [Right Arm] Automatic Cuff Blood Pressure Position [Right Arm] Sitting 02 Sat by Pulse Oximetry 100 Oxygen Delivery Method Room Air - Lab Data Lab Results 08/11/21 12:30: Urine Color Yellow, Urine Appearance Clear, Urine pH 7.0, Ur Specific [place] 1.010, Urine Protein Negative, Urine Glucose (UA) Negative, Urine Ketones Negative, Urine Blood 1+, Urine Nitrate Negative, Urine Bilirubin Negative, Urine Urobilinogen 0.2, Ur Leukocyte Esterase 1+ A, Urine RBC 3-5, Urine WBC 3-5, Ur Squamous Epith Cells 3-5, Urine Bacteria 1+ 08/11/21 12:30: Urine HCG, Qual Negative 08/11/21 13:00: WBC 6.7, RBC 4.45, Hgb 13.7, Hct 39.9, MCV 89.7, MCH 30.8, MCHC 34.3, RDW 13.2, Plt Count 264, MPV 7.7, Neut % (Auto) 58.9, Lymph % (Auto) 31.9, [place] % (Auto) 6.4, Eos % (Auto) 1.2, Baso % (Auto) 1.6, Neut # (Auto) 4.0, Lymph # (Auto) 2.1, [place] # (Auto) 0.4, Eos # (Auto) 0.1, Baso # (Auto) 0.1 08/11/21 13:00: Sodium 142, Potassium 3.5, Chloride 107, Carbon Dioxide 29, Anion Gap 9.5, BUN 6 L, Creatinine 0.70, Estimated Creat Clear 99, Estimated GFR 93, Est GFR ( Amer) 112, Glucose 90, Calcium 9.1, Total Bilirubin 0.6, AST 37 H, ALT 31, Alkaline Phosphatase 104, Troponin I < 0.01, Total Protein 6.5, Albumin 3.9, Globulin 2.6, Albumin/Globulin Ratio 1.5, Lipase 86 Result diagrams: 08/11/21 13:00 08/11/21 13:00 Orders (Tests/Meds): ED MEDICATIONS Generic Name Dose Route Start Last Admin Trade Name Freq PRN Reason Stop Dose Admin Sodium Chloride 10 ml 08/11/21 13:05 08/11/21 13:16 Sodium Chloride 0.9% 10ml Flush Syringe IV 09/10/21 13:04 10 ml NEEDED PRN Administration Maintain IV Site Discontinued Medications Generic Name Dose Route Start Last Admin Trade Name Freq PRN Reason Stop Dose Admin Lactated Ringer's 1,000 mls @ 999 mls/hr 08/11/21 13:00 08/11/21 13:04 Lactated Ringer's 1000 Ml Bag IV 08/11/21 14:00 999 mls/hr .Q1H1M TANNER Administration Iopamidol 75 ml 08/11/21 13:14 08/11/21 13:16 Iopamidol-370 (76%);100ml Bottle IV 08/11/21 13:15 75 ml ONCE ONE Administration Iopamidol 10 ml 08/11/21 13:14 Iopamidol-200 (41%);10ml Vial IV 08/11/21 13:15 ONCE ONE ORDERS Category Date Time Status Troponin I Q3H Lab 08/11/21 16:00 Ordered Troponin I Q3H Lab 08/11/21 19:00 Ordered Urine Culture Stat Micro 08/11/21 12:30 Received - CT Data CT Scan: Abdomen,
[2021-08-11 13:25] LABS: Appearance,Urine CLEAR (Clear); Bilirubin,Urine Negative (Negative); Blood, Urine 1+ (Negative); Color,Urine YELLOW (Yellow); Glucose,Urine (UA) Negative (Negative); Ketones,Urine Negative (Negative); Leukocyte Esterase,Urine 1+ (Negative); Nitrate,Urine Negative (Negative); Protein,Urine Negative (Negative); Urobilinogen,Urine 0.2 EU/dl (0.2)
[2021-08-11 13:26] LABS: Urine Pregnancy, HCG Qual. Negative (Negative)
[2021-08-11 13:34] LABS: Troponin I < 0.01 ng/ml (0.00-0.034)
--- NOTE | 2021-08-11 13:45 | PC.NURSE ---
PT up to restroom. Advised her we were waiting on CT results. Warm blankets provided
[2021-08-11 13:51] LABS: Bacteria,Urine 1+ /lpf
--- NOTE | 2021-08-11 14:07 | PC.NURSE ---
Rounded on pt at this time. No new needs
[2021-08-11 14:43] VITALS: BP 132/79; PULSE 89; RESP 14; TEMP 36.8; O2SAT 99
== END 2021-08-11 14:44 | disposition home or self-care (01) ==
PROVIDERS: Emergency Provider Emergency Medicine; PCP Family Medicine
DX: K80.50 Calculus of bile duct without cholangitis or cholecystitis without obstruction (principal); N30.01 Acute cystitis with hematuria
CPT/HCPCS: 74177; 80053; 81001; 81025; 83690; 84484; 85025; 87086; 87088; 87186; 96360; 99284; Q9967

== ENCOUNTER → 2021-08-19 08:55 | Outpatient (CLI) | payer OTHER, SELFPAY ==
--- NOTE | 2021-08-19 08:56 | US_ITS ---
FINAL REPORT CLINICAL HISTORY: RUQ pain FINDINGS: US ABDOMINAL LIMITED Sonographic images of the right upper quadrant were obtained. The pancreas is partially obscured.The liver has an unremarkable appearance. There is a small amount of sludge within the gallbladder without evidence of gallstones. There is no evidence of biliary ductal dilatation.The common duct measures 2 mm. Limited images of the right kidney are unremarkable. IMPRESSION: Small amount of sludge within the gallbladder without evidence of gallstones. Reviewed, Interpreted and Dictated by Bird Wren III, MD Transcribed by Tawanna Ortiz Authenticated by Bird Wren III, MD on 08/19/2021 11:03:23 AM [facility]
== END ==
PROVIDERS: PCP Family Medicine; Visit Provider Surgery
DX: R10.11 Right upper quadrant pain (principal)
CPT/HCPCS: 76705

== ENCOUNTER 2021-10-04 12:15 | Emergency (ER) | payer OTHER, SELFPAY ==
[2021-10-04 12:15] VITALS: BP 120/66; PULSE 67; RESP 19; TEMP 36.7; O2SAT 99; BMI 25.3
[2021-10-04 12:26] VITALS: BP 120/66; PULSE 67; RESP 19; TEMP 36.7; O2SAT 99
--- NOTE | 2021-10-04 12:29 | HMH.EDUTC ---
[facility] [place] Disposition Clinical Impression: TMJ (temporomandibular joint disorder) Otitis media Qualifiers: Otitis media type: suppurative Chronicity: acute Laterality: right Recurrence: non-recurrent Spontaneous tympanic membrane rupture: without spontaneous rupture Qualified Code(s): H66.001 - Acute suppurative otitis media without spontaneous rupture of ear drum, right ear Disposition: Home, Self-Care Condition on Discharge: Good Instructions: TMJ Syndrome (Alternative Therapy), Middle Ear Infection Additional Instructions: Start antibiotic as soon as possible and be sure to take as ordered for full length of time even though he should start feeling better in 24-48 hours. Tylenol or Motrin as needed for pain or fever Encourage fluids, water, Gatorade, Powerade, Pedialyte if infant/toddler/child Warm compresses often helps when placed over ear Return immediately for new or worsening symptoms no noticeable improvement in 48-72 hours and in 10-14 days to ensure the ears are return to baseline. Follow-up with primary care follow up with dentist Prescriptions: cephALEXin [Cephalexin 500mg Tab] 500 mg PO BID 7 Days #14 tab Transmission Status: Pending to [id number] Referrals: Sebastien Damon MD [Primary Care Provider] - Time of Disposition: 12:36 Medical Decision Making - Sacha Inquiry Pt receiving controlled substance: No Vital Signs: 10/04/21 12:15 10/04/21 12:26 Temperature 98.1 F 98.1 F Temperature Source Oral Pulse Rate 67 Pulse Rate [Left Brachial] 67 Respiratory Rate 19 19 Blood Pressure 120/66 Blood Pressure [Left Arm] 120/66 Blood Pressure Mean [Left Arm] 84 Blood Pressure Source [Left Arm] Automatic Cuff Blood Pressure Position [Left Arm] Sitting 02 Sat by Pulse Oximetry 99 Oxygen Delivery Method Room Air [facility] [place] HPI - General Chief complaint: Urgent Treatment Center Stated complaint: left ear ache Time Seen by Provider: 10/04/21 12:29 Mode of Arrival: Ambulatory Source of Information: Patient Limitations: No Limitations Description of Symptoms (Recalled from Triage Doc. by RN): PATIENT C/O LEFT EAR PAIN SINCE YESTERDAY HEENT Symptoms (Recalled from RN notes): Yes Resp Symptoms (Recalled from RN notes): No Skin Symptoms (Recalled from RN notes): No MS Symptoms (Recalled from RN notes): No Functional Status (Recalled from RN notes): WNL - History of Present Illness Provider Complaint: 41 yr old female presents for left ear pain that radiates to jaw. pt states for over a month she has been having jaw pain that wore with eating and she has been trying to get into the denist but has not been able to but last night the pain started in left ear - Related Data Home Medications Medication Instructions Recorded Confirmed Venlafaxine HCl [Effexor 37.5mg 37.5 mg PO DAILY 06/05/20 08/14/21 tablet] Previous Rx's Medication Instructions Recorded aripiprazole 5 mg tablet 5 mg PO QHS #30 tab 05/20/21 Ondansetron [Zofran 4mg ODT] 4 mg PO BIDP PRN #10 tab 08/11/21 cephALEXin [Cephalexin 500mg Tab] 500 mg PO BID #14 tab 08/11/21 cephALEXin [Cephalexin 500mg Tab] 500 mg PO BID 7 Days #14 tab 10/04/21 Allergies Allergy/AdvReac Type Severity Reaction Status Date / Time No Known Allergies Allergy Verified 08/14/21 09:28 - Worker's Comp Is this a Worker's Comp case?: No [facility] History - Hepatitis A Screen Attestation statement:: This patient has been screened for Hepatitis A risk factors. I have reviewed the patient's past medical history: Yes 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: Reports:: Anxiety Denies:: Cancer, Depression, Diabetes Mellitus Type 1, Diabetes Mellitus Type 2, Hypertension, Internal Pacemaker, MRSA, Palpitations, Seizures Other 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: Denies: Blood Transfusion Reaction Laterality Cases: Bilateral: Tonsillectomy Other Surgeries: Yes: Hysterectomy-Total. No: Pacemaker Amputation: No Fractures: No Comment: Left wrist - Social History Smoking Stat
== END 2021-10-04 12:30 | disposition home or self-care (01) ==
PROVIDERS: Emergency Provider Nurse Practitioner Family; PCP Family Medicine
DX: M26.609 Unspecified temporomandibular joint disorder, unspecified side (principal); H66.002 Acute suppurative otitis media without spontaneous rupture of ear drum, left ear
CPT/HCPCS: 99212; G0463

== ENCOUNTER → 2021-11-18 09:48 | Outpatient (CLI) | payer OTHER, SELFPAY ==
--- NOTE | 2021-11-18 10:37 | XR_ITS ---
FINAL REPORT CLINICAL HISTORY: pain, stepped wrong on steps this morning, pain and heard a crunch COMPARISON: 06/10/2021 FINDINGS: RIGHT ANKLE: Three weight-bearing views of the right ankle were obtained. There is postoperative change in the medial talus. There is no acute fracture or dislocation. There are mild degenerative changes. There is no soft tissue abnormality. IMPRESSION: No acute fracture. Reviewed, Interpreted and Dictated by Bird Wren III, MD Transcribed by Griffin Barrientos Authenticated and [facility]
== END ==
PROVIDERS: PCP Family Medicine; Visit Provider Podiatrist
DX: M25.571 Pain in right ankle and joints of right foot (principal)
CPT/HCPCS: 73610

== ENCOUNTER → 2022-01-26 08:50 | Outpatient (CLI) | payer OTHER, SELFPAY ==
--- NOTE | 2022-01-26 08:55 | XR_ITS ---
FINAL REPORT CLINICAL HISTORY: pain COMPARISON: November 18, 2021 FINDINGS: RIGHT ANKLE Three views of the right ankle were obtained. There is no acute fracture or dislocation. There are postoperative changes in the talus with 2 screws present, stable. The joint spaces and mortise are intact. There is no soft tissue abnormality. IMPRESSION: No acute bony abnormality. Stable postoperative changes. Reviewed, Interpreted and Dictated by Bird Wren III, MD Transcribed by Tawanna Ortiz Authenticated and [facility]
== END ==
PROVIDERS: PCP Family Medicine; Visit Provider Podiatrist
DX: M25.571 Pain in right ankle and joints of right foot (principal); S93.401A Sprain of unspecified ligament of right ankle, initial encounter
CPT/HCPCS: 73610

== ENCOUNTER → 2022-02-11 07:55 | Outpatient (CLI) | payer OTHER, SELFPAY ==
--- NOTE | 2022-02-11 07:56 | MR_ITS ---
FINAL REPORT CLINICAL HISTORY: pain. HISTORY ANKLE SURGERY 2 YEARS AGO. LATERAL SIDED ANKLE PAIN. NO INJURY OR TRAUMA. PAIN WHEN BEARING WEIGHT. COMPARISON: Plain films November 17, 2021; CT June 2021 FINDINGS: Multiplanar MR imaging of the right ankle was performed without contrast. There is postoperative change in the medial talus. There is abnormal signal in the distal talus having an appearance consistent with osteonecrosis. There is thickening of the anterior talofibular ligament that may represent sequela of prior partial tear. The flexor and extensor tendons are intact. The posterior plantar aponeurosis is intact. A small subtalar joint effusion is seen. The musculature is intact. There is no evidence of soft tissue mass or cyst. 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 Thickening of the anterior talofibular ligament may represent sequela of prior partial tear. Small subtalar joint effusion. Reviewed, Interpreted and Dictated by Bird Wren III, MD Transcribed by Griffin Barrientos Authenticated and [facility]
== END ==
PROVIDERS: PCP Family Medicine; Visit Provider Podiatrist
DX: S92.021D Displaced fracture of anterior process of right calcaneus, subsequent encounter for fracture with routine healing (principal); S93.04XD Dislocation of right ankle joint, subsequent encounter; S93.401A Sprain of unspecified ligament of right ankle, initial encounter
CPT/HCPCS: 73721

== ENCOUNTER → 2022-02-16 08:52 | Outpatient (CLI) | payer OTHER, SELFPAY ==
[2022-02-22 18:42] LABS: 1,25 Dihydroxy Vitamin D 58 pg/mL (.); 1,25-Dihydroxy, Vitamin D-2 12 pg/mL (.); 1,25-Dihydroxy, Vitamin D-3 46 pg/mL (.)
== END ==
PROVIDERS: PCP Family Medicine; Visit Provider Podiatrist
DX: S93.491A Sprain of other ligament of right ankle, initial encounter (principal); M25.371 Other instability, right ankle; E55.9 Vitamin D deficiency, unspecified
CPT/HCPCS: 36415; 82652

== ENCOUNTER → 2022-02-24 08:57 | Outpatient (CLI) | payer OTHER, SELFPAY ==
--- NOTE | 2022-02-24 08:57 | NM_ITS ---
FINAL REPORT CLINICAL HISTORY: right ankle osteonecrosis, hx of fx and surgery 9:10am 25.2 mci tc mdp FINDINGS: BONE SCAN 3 PHASE NM The patient was injected with 25.2 mCi of technetium 99 M MDP. Limited images of the lower legs were obtained in 3 phases. Comparison is made to MRI dated February 11, 2022 and plain films dated January 26, 2022. There is rather extensive abnormal uptake throughout the talus particularly posteriorly as seen on the lateral view. IMPRESSION: Rather extensive uptake throughout the talus corresponding to the signal abnormality on recent MRI. Reviewed, Interpreted and Dictated by Felipe Ashford MD Transcribed by Griffin Barrientos Authenticated and [facility]
== END ==
PROVIDERS: PCP Family Medicine; Visit Provider Podiatrist
DX: S93.401A Sprain of unspecified ligament of right ankle, initial encounter (principal)
CPT/HCPCS: 78315; A9503

== ENCOUNTER 2022-03-18 09:30 | Outpatient (RCR) | payer OTHER, SELFPAY ==
--- NOTE | 2022-02-20 16:04 | HMH.PTOPEV ---
PT Outpatient Evaluation Rehab PT Outpatient Evaluation Start: 02/20/22 15:47 Freq: Status: Active Protocol: Document 02/20/22 15:47 DIOGO (Rec: 02/20/22 16:03 DIOGO [id number]) E-signed By Evin Castano, PT Outpatient Therapy Subjective History Subjective History This is the initial PT eval for Maria De Jesus Albrecht 41 yowf who presents with sudden increase in R ankle pain ~ 2-3 wks ago. She has hx of prior ankle/ foot injury 06/02 with talus and calcaneus fxs with ORIF performed. She has suffered from mild chronic pain since that time, but this new pain was much more severe. 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 She has ultrasonic bone stimulator device now and continues to use her tall cam walker when ambulating. She also reports intermittently increasing edema in the R ankle. SHe reports generally aching pain, but intermittent sharp pain with increased walking. Chief Complaint Pain Symptom Type Ache,Sharp Symptoms Relieved By Rest/Positioning,Ice Symptoms Aggravated By Walking Prior Functional Limitations None Current Functional Limitations Recreation Activity,Walking, Stairs Symptom Description Constant but Variable,Activity Dependent Level of pain today (0-10) 3 Pain scale - at its worst (0-10) 10 Ankle/Foot Eval Gait Observation General Gait Pattern Observation Antalgic Gait Palpation Tenderness right Ankle/Foot Palpation Findings Tenderness Ankle/Foot Palpation Overall Comment medial and lateral sub- malleolar ROM Ankle/Foot Dorsiflexion w/Knee Extended 0-11 Active Range Motion (degrees) Ankle/Foot Plantar Flexion Active Range 0-43 of Motion (degrees) Ankle/Foot Eversion Active Range of 0-17 Motion (degrees) Ankle/Foot Inversion Active Range of 0-24 Motion (degrees) MMT Ankle Dorsiflexion Strength Grade 4 Good Ankle Plantarflexion Strength Grade 4 Good Foot Eversion Strength Grade 4 Good Foot Inversion Strength Grade 4 Good Special Tests Ankle Anterior Drawer Test Negative Left,Negative Right Talar Tilt Test
== END 2022-03-18 09:35 | disposition home or self-care (01) ==
LOC: PT 09:30
PROVIDERS: PCP Family Medicine; Visit Provider Podiatrist
DX: M25.571 Pain in right ankle and joints of right foot (principal); M25.371 Other instability, right ankle
CPT/HCPCS: 97010; 97014; 97016; 97035; 97140; 97163; G0283

== ENCOUNTER → 2022-04-14 11:45 | Outpatient (CLI) | payer OTHER, SELFPAY ==
--- NOTE | 2022-04-14 11:57 | ECG_ITS ---
APPROVED REPORT Exam: Resting ECG HR:75 bpm ECG Measurements Heart Rate 75 AXES AL 144 P 66 QRSd 85 QRS 88 QT 365 T 63 QTc 394 Conclusion SINUS RHYTHM NONSPECIFIC T-WAVE ABNORMALITY BORDERLINE ECG UNCONFIRMED REPORT Electronically signed by : Danny Bhatti MD 04/14/2022 16:54:50
--- NOTE | 2022-04-14 12:28 | XR_ITS ---
FINAL REPORT CLINICAL HISTORY: pre op, congestion FINDINGS: TWO-VIEW CHEST Two views of the chest were obtained. The heart size and pulmonary vascularity are within normal limits. The mediastinum is normal. There is evidence of old calcified granulomatous disease. There is no pneumothorax. The bony thorax is intact. IMPRESSION: No acute process. Reviewed, Interpreted and Dictated by Lucy Montiel MD Transcribed by Tawanna Ortiz Authenticated and . [facility]
[2022-04-14 12:32] LABS: Basophils # 0.1 K/mm3 (0-0.2); Basophils % 0.9 % (0.1-2.0); Eosinophils # 0.1 K/mm3 (0.0-0.4); Eosinophils % 1.6 % (0.1-12.0); Hematocrit 42.9 % (37.0-47.0); Hemoglobin 14.4 g/dL (12.2-16.2); Lymphocytes % 32.3 % (10-50); Mean Corpuscular HGB Conc 33.6 g/dL (31.8-35.4); Mean Corpuscular Hemoglobin 29.7 pg (27.0-31.2); Mean Corpuscular Volume 88.1 fl (81-99); Mean Platelet Volume 7.6 fl (7.4-10.4); Monocytes # 0.3 K/mm3 (0.1-1.0); Monocytes % 4.5 % (1.7-9.3); Neutrophils # 3.9 K/mm3 (1.8-7.8); Neutrophils % 60.7 % (37.0-80.0); Platelet Count 274 K/mm3 (142-424); Red Blood Count 4.87 M/mm3 (4.20-5.40); Red Cell Distribution Width 13.5 % (11.5-17.5); White Blood Count 6.3 K/mm3 (4.8-10.8)
[2022-04-14 14:28] LABS: Chloride 108 mmol/L (98-107); Potassium 3.5 mmoL/L (3.5-5.1); Sodium 143 mmol/L (136-145)
[2022-04-14 14:30] LABS: Alanine Aminotransferase 32 U/L (12-78); Alkaline Phosphatase 73 U/L (38-126); Anion Gap 11.5 mEq/L (5-15); Aspartate Amino Transferase 33 U/L (14-36); Bilirubin,Total 0.4 mg/dl (0.2-1.3); Blood Urea Nitrogen 9 mg/dl (7-17); Carbon Dioxide 27 mmol/L (22.0-30.0); Estimated Glomerular Filt Rate 92 ml/min (>60); GFR (African American) 112 ML/MIN (>60)
[2022-04-14 14:31] LABS: Albumin Level 4.2 g/dl (3.5-5.0); Albumin/Globulin Ratio 1.8 (1.1-1.8); Calcium 8.7 mg/dl (8.4-10.2); Globulin 2.4 g/dL (1.3-3.2); Glucose 100 mg/dl (74-100); Total Protein,Serum 6.6 g/dl (6.3-8.2)
[2022-04-23 02:44] LABS: 1,25 Dihydroxy Vitamin D 64 pg/mL (.); 1,25-Dihydroxy, Vitamin D-2 43 pg/mL (.); 1,25-Dihydroxy, Vitamin D-3 21 pg/mL (.)
== END ==
PROVIDERS: PCP Family Medicine; Visit Provider Podiatrist
DX: Z01.818 Encounter for other preprocedural examination (principal); M25.371 Other instability, right ankle
CPT/HCPCS: 36415; 71046; 80053; 82652; 85025; 93005

== ENCOUNTER 2022-04-22 08:03 | Day surgery (SDC) | payer OTHER, SELFPAY ==
[2022-04-20 14:00] VITALS: BMI 25.4
[2022-04-22] VITALS (11 sets, daily range): BP systolic 104–132; BP diastolic 72–94; PULSE 76–93; RESP 12–18; TEMP 36.4–43; O2SAT 93–99
--- NOTE | 2022-04-22 | XR_ITS ---
FINAL REPORT CLINICAL HISTORY: HARDWARE REMOVAL .42 fluoro time FINDINGS: FLUORO TIME PROCEDURE: Fluoroscopy in the operating room. FINDINGS: Fluoroscopy time was provided by the radiology department for the clinical service. A single film was obtained. Fluoroscopy exposure time: 0.42 minute IMPRESSION: See above Reviewed, Interpreted and Dictated by Bird Wren III, MD Transcribed by Tawanna Ortiz Authenticated and [facility]
--- NOTE | 2022-04-22 08:43 | P.PN_ITS ---
[facility] Disclaimer: The information contained in this section may have been updated after the patient was seen, as this information can be updated by other users. 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 [employer] Anesthesia Checklist Patient Identification Patient Identification: Arm Band and Verbal (Name & ) Structural Data Admitted From: Home Planned Operative Procedure/s: Podiatry Consent for Planned Operative Procedure(s) Verified: Yes NPO Status Verified Time NPO: 00:00 Additional verifications Anesthesia Reactions: No Hx Blood Transfusions: No Blood Transfusion Reaction: No Airway Assessment C-Spine Mobility Assessed: Yes TMJ Mobility Assessed: Yes Dentition: Good Dentition Neurological Assessment Level of Consciousness: Awake Hx Seizures: No Numbness or tingling in extremities: No Anesthesia Plan Anesthesia Risk discussed: Yes Anesthesia Plan: Verified ASA Class: I Anesthesia Type: General w/block
--- NOTE | 2022-04-22 10:24 | P.PN_ITS ---
[facility] Disclaimer: The information contained in this section may have been updated after the patient was seen, as this information can be updated by other users. 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 [employer] Anesthesia Checklist Patient Identification Patient Identification: Verbal (Name & ) Structural Data Admitted From: Home Planned Operative Procedure/s: orif r ankle Consent for Planned Operative Procedure(s) Verified: Yes NPO Status Verified Time NPO: 00:00 Additional verifications Anesthesia Reactions: No Hx Blood Transfusions: No Blood Transfusion Reaction: No Airway Assessment C-Spine Mobility Assessed: Yes TMJ Mobility Assessed: Yes Dentition: Good Dentition Neurological Assessment Level of Consciousness: Awake, Alert and Appropriate Anesthesia Plan Anesthesia Risk discussed: Yes Anesthesia Plan: Verified ASA Class: II Anesthesia Type: General w/block Preoperative Comments Pre-Operative Comments: pop block exp to pt,pt agrees to proceed
--- NOTE | 2022-04-22 12:05 | XR_ITS ---
FINAL REPORT CLINICAL HISTORY: s/p talus HWR, bone grafting post op COMPARISON: 01/26/2022 FINDINGS: RIGHT ANKLE 3 views of the right ankle were obtained. There is no acute fracture or dislocation. There has been interval removal of the two screws from the talus. Postoperative changes are noted of the lateral malleolus. The mortise is intact. Visualized joint spaces are normally aligned. Soft tissues are unremarkable. IMPRESSION: Postoperative changes with no acute process. Reviewed, Interpreted and Dictated by Bird Wren III, MD Transcribed by Vicky Raza Authenticated and [facility]
--- NOTE | 2022-04-22 12:44 | SUR.OPER ---
1241-family updated at this time
--- NOTE | 2022-04-22 13:31 | P.PNANES_ITS ---
[facility] Anesthesia Record Part I Anesthesia Record I Intake, IV Amount: 1,800 Estimated blood loss (mL): 0 Urine output (mL): 0 Blood Pressure: 132/94 SaO2: 94 Pulse Rate: 92 Respiratory Rate: 12 Temperature: 97.5 F Patient is:: Awake and Stable Stable to PACU at:: 13:20
--- NOTE | 2022-04-22 13:31 | EXP.OP.NOTE ---
Date of procedure: 04/22/22 Pre-op Diagnosis:: Right talus osteonecrosis Right ankle instability Right ankle synovitis Retained orthopedic hardware Right peroneal tendon tear, tenosynovitis Post-op Diagnosis:: Same Procedure performed:: -right peroneal tendon (Brevis) repair, synovectomy tendon (longus) -right modified Brostrum, deltoid reconstruction -ankle arthroscopy with extensive debridement -core decompression (partial resection) talus -subchondroplasty, bone grafting -allograft/amniotic graft -hardware removal Surgeon:: Maria Alejandra Murry DPM [place]:: Ruy Ortiz Anesthesia: GETA and regional (R popliteal nerve block) Estimated blood loss (mL): 50 Clinical Note:: Patient is a 41-year-old female who sustained a right talus fracture with subsequent ORIF 06/05/2020. Patient began having pain several months ago to the ankle. Recent x-ray, MRI and bone studies show osteonecrosis. 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 Patient has had conservative care including immobilization in fracture boot, modification of activity, RICE protocol, Medrol Dosepak, Mobic, physical therapy, use of the THOMAS device (Sustain acoustic medicine ultrasound device) without improvement. Considerations, talus collapse from progression of AVN, arthritis. We discussed surgery including joint sparing versus joint destructive procedures. At this point patient still has adequate joint space without talus collapse so recommend a joint sparing procedure. All risks and benefits were discussed including but not limited to: damage to blood vessels and nerves, bleeding, infection, wound complications, delayed, mal or non-union of bone, post-traumatic arthritis, need for further surgery, implant failure, need for removal of implant, prolonged or permanent swelling of the extremity, prolonged or permanent pain or deformity, CRPS/RSD, DVT/PE, and anesthetic complications including . No guarantees were given. All questions fully answered. The patient verbalized understanding and agreed to proceed with surgery. Written consent obtained. Will need eRx [place], Toradol, Zofran, will take Mobic (not Ibuprofen). Operative findings:: Two retained 2.5 mm cannulated screws to the medial talus, removed without complication. The medial talus had some bone that was soft and crumbly consistent with the avascular necrosis/osteonecrosis. Portion of the medial talus was resected and sent for pathology. Deltoid was attenuated and repaired with suture. Synovitis noted throughout the ankle joint noticeable via the scope. The peroneus brevis tendon had a 2 cm longitudinal split tear at the level of the lateral malleolus. There is tenosynovitis noted to both the brevis and longus tendon. The longus tendon was intact. ATFL was torn with a positive anterior drawer sign. *Modifier: due to the revisional nature of the procedure this case took 45-60min longer than normal. Factors: fibrotic scar tissue necessitating extensive dissection, hardware removal. Operative note:: On this date and time the patient was deemed an appropriate surgical candidate. With informed consent signed, anesthesia did preop regional nerve block. Patient transferred to operating room and placed supine on table. IV Ancef infused. SCD to nonoperative limb. Right midcalf tourniquet at 225 mmHg. Right extremity prepped and draped in normal sterile fashion. Right hardware removal: Attention directed to the medial talus where previous well-healed incision was noted. Dissection performed full-thickness down to the level of the bone. There was significant fibrotic scar tissue appreciated. 2.5 millimeter screws x2 were removed. Bone quality was soft and crumbly. Right peroneus brevis repair, longus tenosynovectomy: Attention was directed to the lateral ankle where an incision was made over previous well-healed scar. Dissection carried through scar tissue down full-thickness to the level of the bone. ATFL was noted
--- NOTE | 2022-04-24 07:22 | EXP.ANES.II ---
[facility] Anesthesia Record Part II Anesthesia Record Part II Discharge Time: 13:50 Destination: Surgical Day Care (OP Surgery) PACU nurse assessment reviewed?: Yes Patient Condition:: Good Anesthesia Complications:: None Swallowing reflex intact?: Yes Cyanosis?: No Blood Pressure: 119/81 Pulse Rate: 88 Temperature: 98.2 F Mental Status: Alert & Oriented Pain level:: 0 Nausea and/or vomitting:: None Intake, IV Amount: 0
[2022-04-24 07:23] VITALS: BP 119/81; PULSE 88; TEMP 36.8
== END 2022-04-22 14:39 | disposition home or self-care (01) ==
PROVIDERS: PCP Family Medicine; Visit Provider Podiatrist
PROC: (CPT 20680; principal; 2022-04-22 09:30)
DX: M87.071 Idiopathic aseptic necrosis of right ankle (principal); M87.874 Other osteonecrosis, right foot; M79.671 Pain in right foot; M25.371 Other instability, right ankle; M25.471 Effusion, right ankle; E55.9 Vitamin D deficiency, unspecified; M65.871 Other synovitis and tenosynovitis, right ankle and foot; Z79.899 Other long term (current) drug therapy; M66.261 Spontaneous rupture of extensor tendons, right lower leg
CPT/HCPCS: 20680; 27698; 27659; 29891; 73600; 73610; 96374; C1713; J2405; Q4211

== ENCOUNTER → 2022-05-14 09:50 | Outpatient (CLI) | payer OTHER, SELFPAY ==
--- NOTE | 2022-05-14 09:53 | XR_ITS ---
FINAL REPORT CLINICAL HISTORY: post-op- weight bearing films COMPARISON: 04/22/2022 FINDINGS: RIGHT ANKLE 3 views of the right ankle were obtained. There is no acute fracture or dislocation. The mortise is intact. There is postoperative change of the lateral malleolus. There is a sclerotic area in the talus which is stable of unclear etiology, could be postoperative. There is moderate degenerative change. Soft tissue calcifications are noted medially and laterally. IMPRESSION: Postoperative and mild degenerative changes as above. Reviewed, Interpreted and Dictated by Bird Wren III, MD Transcribed by Vicky Raza Authenticated and [facility]
--- NOTE | 2022-05-14 09:53 | XR_ITS ---
FINAL REPORT CLINICAL HISTORY: post-op- weight bearing films COMPARISON: None FINDINGS: RIGHT FOOT 3 views of the right foot were obtained. There is mild degenerative change. There is postoperative change of the lateral malleolus. There is question of postoperative change of the talus. There is no acute fracture or dislocation. Soft tissues are unremarkable. IMPRESSION: Postoperative and mild degenerative changes as above. Reviewed, Interpreted and Dictated by Bird Wren III, MD Transcribed by Vicky Raza Authenticated and [facility]
== END ==
LOC: RAD 09:51
PROVIDERS: PCP Family Medicine; Visit Provider Podiatrist
DX: M25.571 Pain in right ankle and joints of right foot (principal); M87.071 Idiopathic aseptic necrosis of right ankle
CPT/HCPCS: 73610; 73630

== ENCOUNTER → 2022-06-04 09:08 | Outpatient (CLI) | payer OTHER, SELFPAY ==
--- NOTE | 2022-06-04 09:11 | XR_ITS ---
FINAL REPORT CLINICAL HISTORY: post-op hysterectomy COMPARISON: 05/14/2022 FINDINGS: Right ankle Three views were obtained. There is no acute fracture or dislocation. There are postoperative changes in the lateral malleolus. Mild degenerative changes are present. There is soft tissue swelling. IMPRESSION: Degenerative and postoperative change as detailed above. Reviewed, Interpreted and Dictated by Bird Wren III, MD Transcribed by Huma Junior Authenticated and [facility]
== END ==
PROVIDERS: PCP Family Medicine; Visit Provider Podiatrist
DX: M25.571 Pain in right ankle and joints of right foot (principal); Z98.890 Other specified postprocedural states
CPT/HCPCS: 73610

== ENCOUNTER 2022-06-23 15:00 | Outpatient (RCR) | payer OTHER, SELFPAY ==
--- NOTE | 2022-06-11 15:56 | HMH.PTOPEV ---
PT Outpatient Evaluation Rehab PT Outpatient Evaluation Start: 06/11/22 15:02 Freq: Status: Active Protocol: Document 06/11/22 15:43 DIOGO (Rec: 06/11/22 15:56 DIOGO [id number]) E-signed By Evin Castano, PT Outpatient Therapy Subjective History Subjective History This is the initial PT eval for Maria De Jesus Albrecht 41 yowf who presents ~2 mos S/P R ankle surgery for talus osteonecrosis reconstruction, peroneal tendon repair, and deltiod ligament reconstruction. She reports only mild pain at this time, worse with prolonged standing. She also reports feeling weak throughout her L ankle and wanting to get out of the cam walker. She has no significant PMH. Chief Complaint Pain,Stiff,Weakness Symptom Type Ache Symptoms Relieved By Rest/Positioning Symptoms Aggravated By Standing,Walking Prior Functional Limitations None Current Functional Limitations Standing,Walking,Stairs Symptom Description Activity Dependent Level of pain today (0-10) 0 Pain scale - at its worst (0-10) 2 Ankle/Foot Eval Gait Observation General Gait Pattern Observation Antalgic Gait Assistive Device Ambulation Assistive Device Axillary Crutches Palpation Tenderness right Ankle/Foot Palpation Findings Tenderness Ankle/Foot Palpation Overall Comment 2/4 Deltoid ligament TTP positive ROM Ankle/Foot Dorsiflexion w/Knee Extended 0 Active Range Motion (degrees) Ankle/Foot Plantar Flexion Active Range 0-35 of Motion (degrees) Ankle/Foot Eversion Active Range of 0-12 Motion (degrees) Ankle/Foot Inversion Active Range of 0-10 Motion (degrees) MMT Ankle Dorsiflexion Strength Grade 3 Fair Ankle Plantarflexion Strength Grade 3 Fair Foot Eversion Strength Grade 3 Fair Foot Inversion Strength Grade 3 Fair Special Tests Ankle Anterior Drawer Test Negative Left,Negative Right Ankle Eversion Test Negative Left,Negative Right Talar Tilt Test Negative Left,Negative Right Ankle Inversion (supination) Test Negative Left,Negative Right Ankle Posterior Drawer Test Negative Left,Negative Right Outpatient Therapy Assessment Impairments Problems/Impairmments Palpation Tenderness,Impaired Range of Motion,Impaired Strength,Impaired Gait Pattern ,Impaired
== END 2022-06-23 15:05 | disposition home or self-care (01) ==
LOC: PT 15:00
PROVIDERS: PCP Family Medicine; Visit Provider Podiatrist
DX: M25.371 Other instability, right ankle (principal); M25.572 Pain in left ankle and joints of left foot
CPT/HCPCS: 97014; 97016; 97110; 97112; 97140; 97163; 97530; G0283

== ENCOUNTER → 2022-06-23 21:32 | Outpatient (CLI) | payer OTHER, SELFPAY ==
--- NOTE | 2022-06-23 21:44 | XR_ITS ---
PROCEDURE INFORMATION: Exam: XR Right Ankle Exam date and time: 06/23/2022 9:45 PM Age: 41 years old Clinical indication: Pain and injury or trauma; Other: Recent surgery due to old injury; Blunt trauma; Prior surgery; Surgery date: <1 month; Surgery type: Right ankle surgery. ; Additional info: Right ankle instability TECHNIQUE: Imaging protocol: Radiologic exam of the right ankle. Views: 3 or more views. COMPARISON: CR XR ANKLE WT BEARING RT MIN 3V 06/04/2022 9:40 AM FINDINGS: Bones/joints: Bones appear osteopenic. Surgical anchor within the distal fibula. Suspect small joint effusion which is unchanged. No acute fracture or dislocation. Soft tissues: Normal. IMPRESSION: Chronic changes without acute process.
== END ==
PROVIDERS: PCP Family Medicine; Visit Provider Podiatrist
DX: M25.571 Pain in right ankle and joints of right foot (principal); M25.371 Other instability, right ankle
CPT/HCPCS: 73610

== ENCOUNTER → 2022-07-07 13:02 | Outpatient (CLI) | payer OTHER, SELFPAY ==
--- NOTE | 2022-07-07 13:02 | MR_ITS ---
FINAL REPORT CLINICAL HISTORY: ankle pain/injury fall x 3 weks ago lateral ankle pain FINDINGS: Multiplanar and multisequence imaging of the right ankle was obtained without intravenous contrast. BONES/JOINT: There is bone marrow edema in the talus and calcaneus. There is a subtle fracture of the anterior medial talus at the talonavicular articulation. There is a surgical anchor in the lateral malleolus. There is a surgically created tunnel in the medial talus. There is no convincing calcaneal fracture. LIGAMENTS: The anterior talofibular ligament is grossly intact. The posterior talofibular ligament is intact. The tibiofibular ligaments are intact. The calcaneofibular ligament is thinned but grossly intact. There is at least a partial tear of the deltoid ligament. The spring ligaments are within normal limits. TENDONS: The Achilles tendon is normal in size and signal intensity. The medial tendons are within normal limits. The peroneus longus and brevis tendons are within normal limits. There is no evidence of peroneus brevis split tear. There is an abnormal appearance of the posterior tibialis tendon just posterior to the medial malleolus that may be postsurgical.. OTHER SOFT TISSUES: There is a tibiotalar joint effusion. There is abnormal T2 signal within the sinus tarsi that is nonspecific. The plantar fascia is normal in size and signal intensity. There is diffuse soft tissue edema. There are no additional areas of abnormal signal intensity. There are no masses or abnormal fluid collections. IMPRESSION: Bone contusions of the talus and calcaneus with findings concerning for anterior talar fracture. Calcaneofibular ligament not well seen. Tear not excluded. Findings concerning for deltoid ligament tear. Postoperative changes as described. Reviewed, Interpreted and Dictated by Elena Saleh MD Transcribed by Griffin Barrientos Authenticated and [facility]
== END ==
PROVIDERS: PCP Family Medicine; Visit Provider Podiatrist
DX: M25.571 Pain in right ankle and joints of right foot (principal); M25.371 Other instability, right ankle; S93.491A Sprain of other ligament of right ankle, initial encounter
CPT/HCPCS: 73721

== ENCOUNTER 2022-09-04 17:30 | Outpatient (RCR) | payer OTHER, SELFPAY ==
--- NOTE | 2022-07-29 12:39 | HMH.PTOPEV ---
PT Outpatient Evaluation Rehab PT Outpatient Evaluation Start: 07/29/22 11:01 Freq: Status: Active Protocol: Document 07/29/22 11:26 LILI (Rec: 07/29/22 12:39 LILI [id number]) E-signed By Ehsan Izquierdo, PT Outpatient Therapy Subjective History Subjective History Pt reports h/o chronic right ankle pain and limited function since sleigh-riding injury on 05/31/22. Pt reports multiple sx's to right ankle since injury, w/most recent on 04/22/22 to repair right peroneal tendon. Pt reports was undergoing skilled P.T. to rehab right ankle in June, but sustained another injury related to a fall. Pt reports most recent MRI has revealed a right ankle deltoid lig. tear. Pt reports s/s improvement over the last 1- 2weeks, and reports transition from cam walker back to ankle brace and shoe on 07/27/22. Pt reports some mild medial aspect right ankle pain, and global right ankle stiffness the am. Chief Complaint Pain,Stiff,Swelling,Weakness Symptom Type Ache,Dull Symptoms Relieved By Rest/Positioning,Ice,Brace/ Support,Prescription Meds Symptoms Aggravated By Standing,Physical Activity, Walking Prior Functional Limitations Housework,Standing,Walking, Stairs Current Functional Limitations Housework,Standing,Walking, Stairs Symptom Description Constant but Variable Level of pain today (0-10) 2 Pain scale - at its best (0-10) 1 Pain scale - at its worst (0-10) 4 Ankle/Foot Eval Gait Observation General Gait Pattern Observation Antalgic Gait,Wide Based Gait Palpation Tenderness right Ankle/Foot Palpation Findings Tenderness Ankle/Foot Palpation Overall Comment deltoid lig 2-3/4, post tib tendon 2-3/4 ROM Ankle/Foot Dorsiflexion w/Knee Extended 0-2 Active Range Motion (degrees) Ankle/Foot Plantar Flexion Active Range 0-25 of Motion (degrees) Ankle/Foot Eversion Active Range of 0-1 Motion (degrees) Ankle/Foot Inversion Active Range of 0-15 Motion (degrees) MMT Ankle Dorsifle
== END 2022-09-04 17:35 | disposition home or self-care (01) ==
LOC: PT 17:30
PROVIDERS: PCP Family Medicine; Visit Provider Podiatrist
DX: M25.571 Pain in right ankle and joints of right foot (principal); S93.421A Sprain of deltoid ligament of right ankle, initial encounter
CPT/HCPCS: 97010; 97014; 97016; 97110; 97112; 97140; 97163; G0283

== ENCOUNTER → 2022-10-26 10:40 | Outpatient (CLI) | payer OTHER, SELFPAY ==
--- NOTE | 2022-10-26 10:43 | XR_ITS ---
FINAL REPORT CLINICAL HISTORY: Right ankle pain COMPARISON: 06/23/2022 FINDINGS: AP, oblique, and lateral views of the right ankle were obtained. Surgical screw in the distal fibula is unchanged. There is no acute fracture or dislocation. There is mild degenerative joint disease. No acute soft tissue abnormality. IMPRESSION: Surgical and degenerative changes without acute osseous abnormality. Reviewed, Interpreted and Dictated by Elena Saleh MD Transcribed by Vicky Raza Authenticated and [facility]
--- NOTE | 2022-10-26 10:43 | XR_ITS ---
FINAL REPORT CLINICAL HISTORY: Right foot pain COMPARISON: 05/14/2022 FINDINGS: AP, oblique and lateral views of the right foot were obtained. There is no prior exam for comparison. There is no acute fracture or dislocation. Osteopenia is noted. The joint spaces are preserved. Soft tissues are normal. IMPRESSION: No acute osseous abnormality of the right foot. Reviewed, Interpreted and Dictated by Elena Saleh MD Transcribed by Vicky Raza Authenticated and [facility]
== END ==
PROVIDERS: PCP Family Medicine; Visit Provider Podiatrist
DX: M79.671 Pain in right foot (principal); S93.491S Sprain of other ligament of right ankle, sequela
CPT/HCPCS: 73610; 73630

== ENCOUNTER → 2023-02-16 07:28 | Outpatient (CLI) | payer OTHER, SELFPAY ==
--- NOTE | 2023-02-16 07:35 | XR_ITS ---
FINAL REPORT CLINICAL HISTORY: Ankle Pain FINDINGS: AP, oblique, and lateral views of the right ankle were obtained. There is no prior exam for comparison. There is a surgical anchor in the lateral malleolus. There is a linear lucency through the tip of the lateral malleolus that may represent an age-indeterminate fracture. There is mild degenerative disease soft tissues are normal. IMPRESSION: Linear lucency through the tip of the lateral malleolus may represent an age-indeterminate fracture. Consider MRI if symptoms persist. Reviewed, Interpreted and Dictated by Elena Saleh MD Transcribed by Griffin Barrientos Authenticated and . [facility]
== END ==
PROVIDERS: PCP Family Medicine; Visit Provider Podiatrist
DX: M25.571 Pain in right ankle and joints of right foot (principal); M25.371 Other instability, right ankle
CPT/HCPCS: 73610

== ENCOUNTER → 2023-02-17 13:11 | Outpatient (CLI) | payer OTHER, SELFPAY ==
[2023-02-17 13:02] LABS: Basophils % 0.7 % (0.1-2.0); Eosinophils # 0.1 K/mm3 (0.0-0.4); Eosinophils % 1.6 % (0.1-12.0); Hematocrit 44.4 % (37.0-47.0); Hemoglobin 15.3 g/dL (12.2-16.2); Lymphocytes # 2.1 K/mm3 (0.7-4.5); Lymphocytes % 35.1 % (10-50); Mean Corpuscular HGB Conc 34.5 g/dL (31.8-35.4); Mean Corpuscular Hemoglobin 31.3 pg (27.0-31.2); Mean Corpuscular Volume 90.5 fl (81-99); Mean Platelet Volume 7.9 fl (7.4-10.4); Monocytes # 0.3 K/mm3 (0.1-1.0); Monocytes % 5.5 % (1.7-9.3); Neutrophils # 3.5 K/mm3 (1.8-7.8); Neutrophils % 57.2 % (37.0-80.0); Platelet Count 268 K/mm3 (142-424); Red Blood Count 4.91 M/mm3 (4.20-5.40); Red Cell Distribution Width 12.7 % (11.5-17.5); White Blood Count 6.1 K/mm3 (4.8-10.8)
[2023-02-17 13:54] LABS: Alanine Aminotransferase 30 U/L (12-78); Albumin Level 4.6 g/dl (3.5-5.0); Albumin/Globulin Ratio 1.7 (1.1-1.8); Alkaline Phosphatase 104 U/L (38-126); Anion Gap 15.9 mEq/L (5-15); Aspartate Amino Transferase 32 U/L (14-36); Bilirubin,Total 0.5 mg/dl (0.2-1.3); Blood Urea Nitrogen 8 mg/dl (7-17); Calcium 9.6 mg/dl (8.4-10.2); Carbon Dioxide 27 mmol/L (22.0-30.0); Chloride 103 mmol/L (98-107); Chol/HDL Ratio 4.7 (1-3.5); Cholesterol 241 mg/dl (140-200); Estimated Glomerular Filt Rate 79 ml/min (>60); GFR (African American) 95 ML/MIN (>60); Globulin 2.7 g/dL (1.3-3.2); Glucose 88 mg/dl (74-100); HDL Cholesterol 51 mg/dl (40-60); Potassium 3.9 mmoL/L (3.5-5.1); Sodium 142 mmol/L (136-145); Total Protein,Serum 7.3 g/dl (6.3-8.2); Triglycerides 117 mg/dl (30-150); VLDL Cholesterol 23 mg/dL (0-40)
[2023-02-17 14:11] LABS: 25-OH Vitamin D, Total 28.4 ng/mL (30-100)
[2023-02-17 14:16] LABS: Direct LDL Cholesterol 151.92 mg/dL (100-129)
[2023-02-17 14:25] LABS: Thyroid Stimulating Hormone 2.54 uIU/mL (0.465-4.68)
== END ==
PROVIDERS: PCP Physician Assistant; Visit Provider Physician Assistant
DX: R53.83 Other fatigue (principal); K59.00 Constipation, unspecified; E03.9 Hypothyroidism, unspecified; E55.9 Vitamin D deficiency, unspecified; Z68.26 Body mass index [BMI] 26.0-26.9, adult
CPT/HCPCS: 36415; 80053; 80061; 82306; 84439; 84443; 85025

== ENCOUNTER → 2023-03-01 16:33 | Outpatient (CLI) | payer OTHER, SELFPAY ==
--- NOTE | 2023-03-01 16:36 | XR_ITS ---
PROCEDURE INFORMATION: Exam: XR Right Ankle Exam date and time: 03/01/2023 4:36 PM Age: 42 years old Clinical indication: Pain; Ankle; Right; Additional info: Ankle pain/fracture TECHNIQUE: Imaging protocol: Radiologic exam of the right ankle. Views: 3 or more views. COMPARISON: CR XR ANKLE WT BEARING RT MIN 3V 02/16/2023 7:37 AM FINDINGS: Bones/joints: Postsurgical changes of the lateral ankle with a suture anchor within the lateral malleolus. No acute fracture or malalignment. Soft tissues: Normal. IMPRESSION: No acute osseous findings. Stable postsurgical changes of the lateral ankle.
== END ==
PROVIDERS: PCP Family Medicine; Visit Provider Podiatrist
DX: M25.371 Other instability, right ankle (principal); M25.571 Pain in right ankle and joints of right foot
CPT/HCPCS: 73610

== ENCOUNTER → 2023-03-12 08:55 | Outpatient (CLI) | payer OTHER, SELFPAY ==
--- NOTE | 2023-03-12 08:55 | XR_ITS ---
FINAL REPORT CLINICAL HISTORY: Vit D deficiency, hx of fractures COMPARISON: None FINDINGS: Using L1-4, the bone mineral density of the spine is 0.918 g/cm2, corresponding to T-score of -1.2, consistent with osteopenia. Using the left hip, the bone mineral density of the femoral neck is 0.813 g/cm2, corresponding to a T-score of -0.3, within normal limits. Using the right hip, the bone mineral density of the femoral neck is 0.754 g/cm2, corresponding to a T-score of -0.9, within normal limits. FRAX 10 year fracture risk is 0.1% for a hip fracture and 2.3% for a major osteoporotic fracture. NOTE: T-score: Standard deviation compared with peak bone mass of young adult mean. *Following the recommendations of the International Society of Bone densitometry, classification of hip BMD is based on the lower of two T-scores; total hip or femoral neck. IMPRESSION: Normal bone mineral density of the bilateral hips, with diminished bone mineral density in the lumbar spine consistent with osteopenia. Reviewed, Interpreted and Dictated by Felipe Ashford MD Transcribed by Vicky Raza Authenticated and [facility]
== END ==
PROVIDERS: PCP Family Medicine; Visit Provider Podiatrist
DX: M85.89 Other specified disorders of bone density and structure, multiple sites (principal); E55.9 Vitamin D deficiency, unspecified; S82.831A Other fracture of upper and lower end of right fibula, initial encounter for closed fracture
CPT/HCPCS: 77080

== ENCOUNTER 2023-05-10 08:29 | Outpatient (CLI) | payer OTHER, SELFPAY ==
--- NOTE | 2023-05-10 08:32 | XR_ITS ---
FINAL REPORT CLINICAL HISTORY: ankle pain COMPARISON: None FINDINGS: RIGHT ANKLE: Three views show no evidence of acute displaced fracture or dislocation of the visualized bony architecture. The joint spaces appear normal. Postoperative changes are noted in the lateral malleolus. Osteopenia is present. IMPRESSION: Postoperative changes in the lateral malleolus. Osteopenia without acute bony abnormality identified. Reviewed, Interpreted and Dictated by Lucy Montiel MD Transcribed by Neda Friend Authenticated and . [facility]
== END 2023-05-10 23:59 ==
PROVIDERS: PCP Family Medicine; Visit Provider Podiatrist
DX: M25.571 Pain in right ankle and joints of right foot (principal)
CPT/HCPCS: 73610

== ENCOUNTER 2023-11-19 12:13 | Emergency (ER) | payer OTHER, SELFPAY ==
--- NOTE | 2023-11-19 12:19 | XR_ITS ---
FINAL REPORT CLINICAL HISTORY: pain- accident FINDINGS: Right foot Three views were obtained. There is no acute fracture or dislocation. There are mild degenerative changes. Mild hallux valgus deformity is identified. No soft tissue abnormality is identified. IMPRESSION: No acute process. Reviewed, Interpreted and Dictated by Brid Wren III, MD Transcribed by Huma Junior Authenticated and . [facility]
--- NOTE | 2023-11-19 12:20 | XR_ITS ---
FINAL REPORT CLINICAL HISTORY: pain- accident COMPARISON: 03/01/2023 FINDINGS: Right ankle Three views were obtained. There is no acute fracture or dislocation. There are mild degenerative changes. Postoperative changes are seen in the lateral malleolus. No soft tissue abnormality is identified. IMPRESSION: No acute process. Reviewed, Interpreted and Dictated by Bird Wren III, MD Transcribed by Huma Junior Authenticated and [facility]
--- NOTE | 2023-11-19 12:20 | EXP.UTC ---
Discharge Plan Disposition Patient Disposition: Home, Self-Care Condition: Good Prescriptions Prescriptions: No Action lidocaine-prilocaine 2.5-2.5 % cream topical cholecalciferol (vitamin D3) 1,250 mcg (50,000 unit) capsule 1,250 mcg PO WEEKLY Patient Comments: TAKE ONE CAPSULE BY MOUTH ONCE WEEKLY meloxicam 7.5 mg tablet 7.5 mg PO ONCE Qty: 30 2RF cholecalciferol (vitamin D3) 50 mcg (2,000 unit) tablet,disintegrating 50 mcg PO DAILY Qty: 90 3RF Referrals Follow up/Referrals: Sebastien Damon MD [Primary Care Provider] - See instructions Maria Alejandra Murry DPM [Staff Physician] - See instructions Activity Restrictions/Add. Instructions Additional Instructions/Restrictions: Rest the extremity, apply ice for 15 minutes as tolerated three or four times per day, Wear the reva wrap for compression, Elevate the extremity as tolerated while you are resting. Take ibuprofen for pain. Follow up with Dr. Murry (podiatry). I put in a referral but you need to call her office and schedule an appointment. Follow up with your regular doctor. GO TO THE ER FOR ANY WORSENING SYMPTOMS Clinical Impressions Clinical Impression: Right foot sprain Right ankle sprain Qualifiers: Encounter type: sequela Involved ligament of ankle: anterior talofibular ligament Qualified Code(s): S93.491S - Sprain of other ligament of right ankle, sequela Instructions Patient Instructions: DI for Ankle Sprain, DI for Foot Sprain, How to Apply an Elastic Wrap on Ankle Print Language Print Language: Turkish Discharge ED Provider: Sloan Lim [facility] General Stated complaint: AO 11/18/23, right ankle and foot pain Time Seen by Provider: 11/19/23 12:20 Related Data Home Medications ?Medication ?Instructions ?Recorded ?Confirmed lidocaine-prilocaine 2.5 %-2.5 % topical 03/02/23 05/03/23 topical cream cholecalciferol (vitamin D3) 1,250 1,250 mcg PO WEEKLY 05/03/23 05/03/23 mcg (50,000 unit) capsule Previous Rx's ?Medication ?Instructions ?Recorded meloxicam 7.5 mg tablet 7.5 mg PO ONCE pain #30 tabs 01/19/23 cholecalciferol (vitamin D3) 50 50 mcg PO DAILY vitamin d 02/17/23 mcg (2,000 unit) disintegrating deficeincy #90 tabs tablet Allergies Allergy/AdvReac Type Severity Reaction Status Date / Time No Known Allergies Allergy Verified 05/03/23 11:04 [facility] Disclaimer: The information contained in this section may have been updated after the patient was seen, as this information can be updated by other users. 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 Allergies History of gastroesophageal reflux (GERD) Surgical History H/O removal of cyst LEFT WRIST H/O: hysterectomy History of ankle surgery RIGHT ANKLE Family History Mother Hypertension Diabetes Lung cancer Breast cancer Social History Smoking Status: Never smoker alcohol intake: current alcohol intake frequency: holidays/special occasions only substance use type: denies use current occupational status: employed Travel in the last 8 weeks: None household members: spouse housing: house number of children: 2 current occupation: [employer] caffeine: Yes ROS Obtained: Yes All systems reviewed & no additional complaints except as documented Constitutional Constitutional: Denies chills and Denies fever(s) Eyes Eyes: Denies eye discharge ENT Ears, Nose, Mouth, and Throat: Denies dizziness, Denies otalgia and Denies sore throat Cardiovascular Cardiovascular: Denies chest pain Respiratory Respiratory: Denies shortness of breath, Denies chest congestion, Denies cough, Denies stridor and Denies wheezing Gastrointestinal Gastrointestingal: Denies nausea or vomiting Musculoskeletal Musculoskeletal: Reports as per HPI Integumentary/Breasts Skin/Breast: Denies redness, Denies rash and Denies wounds Neurologic Neurologic: Denies dizziness and Denies paresthesias Allergic/Immunologic Allergic/Immunologic: Denies wheezing Physical Exam General General appearance: alert and in no apparent distress Head Head exam: atraumatic, normocephalic and normal inspection Eye Eye exam: Present normal appearance, PERRL and EOMI ENT ENT exam: Present normal exam, normal oropharynx, mucous membranes moist, TM's normal bilaterally and normal external ear exam Neck Neck exam: Present normal inspection, full ROM and trachea midline; Absent meningismus or lymphadenopathy Chest Chest inspection: Present normal inspection and symmetric chest wall rise; Absent tenderness Respiratory Respiratory exam: Present normal lung sounds bilaterally; Absent respiratory distress Cardiovascular Cardiovascular exam: Present regular rate and normal rhythm; Absent JVD Abdominal Exam Abdominal exam: Present soft and normal bowel sounds; Absent distention, tenderness or guarding Extremities Exam Extremities exam: Present normal capillary refill; Absent calf tenderness Expanded Lower Extremity Exam Right: Knee exam: Present normal inspection, full ROM and knee extension intact; Absent tenderness Lower leg exam: Present normal inspection, full ROM and Achilles tendon intact; Absent tenderness, swelling, abrasion, laceration, ecchymosis, deformity, crepitus, dislocation, erythema, palpable cord or Homans' sign Ankle exam: Present full ROM and tenderness; Absent swelling, abrasion, laceration, ecchymosis, deformity, crepitus, dislocation, erythema, tenderness over talofibular lig or anterior draw sign Foot/toe exam: Present full ROM and tenderness; Absent swelling, abrasion, laceration, ecchymosis, deformity, crepitus, dislocation, erythema, amputation, puncture wound, foreign body, calcaneal tenderness, tenderness at base of 5th metatarsal, nail avulsion or subungual hematoma Neurovascular/Tendon exam: Present normal capillary refill, normal 2-point discrimination and normal fine/light touch; Absent pulse deficit, motor deficit, sensory deficit, tendon deficit, extremity cold to touch or pallor Gait: observed and normal Back Exam Back exam: Present normal inspection; Absent tenderness Neurological Exam Neurological exam: Present alert and oriented X3 Psychiatric Psychiatric exam: Present normal affect and normal mood Skin Skin exam: Present warm, dry, intact and normal color Lymphatic Lymphatic Findings: no adenopathy Medical Decision Making Medical Records Medical records reviewed: No I reviewed the patient's medical records. Sacha Inquiry Pt receiving controlled substance: No
[2023-11-19 12:22] VITALS: BP 149/89; PULSE 95; RESP 16; TEMP 36.7; O2SAT 100; BMI 25.9
[2023-11-19 13:50] VITALS: BP 149/89; PULSE 95; RESP 16; TEMP 36.7; O2SAT 100
== END 2023-11-19 13:51 | disposition home or self-care (01) ==
PROVIDERS: Emergency Provider Nurse Practitioner Family; PCP Family Medicine
DX: S93.491A Sprain of other ligament of right ankle, initial encounter (principal); S93.601A Unspecified sprain of right foot, initial encounter; M25.571 Pain in right ankle and joints of right foot; X58.XXXA Exposure to other specified factors, initial encounter
CPT/HCPCS: 73610; 73620; 99212; 99213; G0463

== ENCOUNTER 2024-02-22 15:05 | Outpatient (CLI) | payer OTHER, SELFPAY ==
--- OUTSIDE RECORDS SUMMARY | 2024-02-22 15:08 | XMS_ITS | Patient Health Record ---
Author [facility] Address [address] [place] [phone] Care Team Providers Care Data Manager Name Role Phone Sebastien Damon Primary Care Provider [phone] Liz Workman Unavailable [phone] Duarte Katiuska Unavailable [phone] ALLERGIES No Known Allergies RESULTS Component Value Reference Range Notes Influenza Screen [...] Interpretation:Negative Performing Lab: Notes/Report: Negative Result: neg CBC Fingerstick (in house) Reviewed date:01/25/2024 09:13:11 [...] plat 204 100 - 400 REASON FOR REFERRAL No Information MEDICATIONS Medication SIG (Take, Route, Fr equency, Duration) Notes Start Date End Date Status Meloxicam 7.5 MG 1 tab(s) orally once a day for 30 day(s) Active IMMUNIZATIONS Vaccine Route Administration Date Status Comme nts COVID 19 Moderna Unknown 02/28/2021 Administered COVID 19 Moderna Unknown 03/28/2021 Administered Hepatitis B (20 and more) Unknown 02/02/2013 Administer ed Hepatitis B (20 and more) Unknown 03/29/2013 Administer ed Hepatitis B (20 and more) Unknown 08/28/2013 Administer ed Tetanus Tdap-Adacel (over 7yrs) SC Subcutaneous 12/13/2010 Administered Tetanus Tdap-Adacel (over 7yrs) Unknown 10/31/2013 Administered Varivax Unknown 02/23/2013 Administered Varivax Unknown 03/29/2013 Administered SOCIAL HISTORY Sex Assigned At : Social History Observation Description Sex Assigned At Unknown PROBLEMS Problem Type ICD Code Onset Dates Problem Status W/U Status Risk SNOMED Code Notes Problem Depression with anxiety (F41.8) Active confirmed 289184502 VITAL SIGNS Heart Rate 97 /min 02/22/2024 Blood pressure diastolic 78 mm Hg 02/22/2024 Height 62 in 02/22/2024 Blood pressure systolic 116 mm Hg 02/22/2024 Weight 137.8 lbs 02/22/2024 BMI 25.20 kg/m2 02/22/2024 Encounters Encounter Location Date Provider Diagnosis [facility] [facility] [address] [facility] [address] [place] [id number] 08/30/2023 Katiuska Ramachandran URI (upper respirato ry infection) J06.9 [facility] [facility] [address] [facility] [address] [place] [id number] 01/24/2024 Katiuska Ramachandran URI (upper respirato ry infection) J06.9 [facility] [address] [facility] [address] [place] [id number] 02/22/2024 R Leodan Workman Fatigue R53.83 and Snoring R06.83 ASSESSMENTS Encounter Date Diagnosis Assessment Notes Treatment Notes Treatment Clinical Notes 08/30/2023 URI (upper respiratory infection) (ICD-10 - J06.9) wrong RX and [facility] notified with new RX; To start Zpak; does not need inhaler, I spoke with [facility] pharmacist; fluids, rest, supportive measures for fever/symptom relief 01/24/2024 URI (upper respiratory infection) (ICD-10 - J06.9) fluids, rest, supportive measures for fever/symptom relief, OTC decongestant and/or cough medicine of choice; restart flonase 02/22/2024 Fatigue (ICD-10 - R53.83) 02/22/2024 Snoring (ICD-10 - R06.83) PLAN OF TREATMENT Next Appt Details Provider Name:Liz Collier, 02/22/2024 02:15:00 PM, [address], [place], [place], [id number], Insurance Providers Payer Name Payer Address Payer Phone Subscriber Number Group Number Insured Name Patient Relationship to Insured Coverage Start Date Coverage End Date [facility] [address] [address] [place] [address] [phone] [id number] SHAILESH Albrecht Self - patient is the insured MEDICAL (GENERAL) HISTORY 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 History ICD Code High risk for breast cancer Surgical History Surgery Date(Month/Year) lt wrist Hospitalization History Reason Date(Month/Year) total hysterectomy 01/14/18
--- OUTSIDE RECORDS SUMMARY | 2024-02-22 15:08 | XMS_ITS ---
Author Organization [place] Address [address] [facility] 36 [facility] [address] [place] [id number] Care Team Providers Care Dry Wall Installer Name Role Phone Nelson Sebastien Primary Care Provider [phone] Liz Syed [phone] ALLERGIES No Known Allergies REASON FOR VISIT yearly check up MEDICATIONS Medication SIG (Take, Route, Fr equency, Duration) Notes Start Date End Date Status Meloxicam 7.5 MG 1 tab(s) orally once a day for 30 day(s) Active VITAL SIGNS Weight 137.8 lbs 02/22/2024 Blood pressure systolic 116 mm Hg 02/22/20 24 Blood pressure diastolic 78 mm Hg 024 Heart Rate 97 /min 02/22/2024 Height 62 in 02/22/2024 BMI 25.20 kg/m2 02/22/2024 Encounters Encounter Location Date Provider Diagnosis [facility] [address] [facility] 36 [facility] [address] [place] [id number] 02/22/2024 Liz Workman Fatigue R53.83 and Snoring R06.83 ASSESSMENTS Encounter Date Diagnosis Assessment Notes Treatment Notes Treatment Clinical Notes 02/22/2024 Fatigue (ICD-10 - R53.83) 02/22/2024 Snoring (ICD-10 - R06.83) PLAN OF TREATMENT Next Appt Details Provider Name:Liz Collier, 02/22/2024 02:15:00 PM, [facility], [address], [place], [id number], History and Physical Notes * HPI (History of Present Illness) Category Sub-Category Detail Notes HPI Patient is here today for a year ly check up. Pt would like to get labs today to check her thyroid levels. Pt sts that she stay tired a lot and just wants to make sure everything is good. Pt sts that she wants to start taking better care of herself
--- OUTSIDE RECORDS SUMMARY | 2024-02-22 15:08 | XMS_ITS ---
[facility] Address [address] [place] [id number] Care Team Providers Care Industrial Gas Service Helper Name Role Phone Sebastien Damon Primary Care Provider [phone] Katiuska Ramachandran Unavailable [phone] ALLERGIES No Known Allergies RESULTS Component Value [...] neg REASON FOR VISIT fever,chill, body aches MEDICATIONS Medication SIG (Take, Route, Frequency, Duration) Notes Start Date End Date Status Meloxicam 7.5 MG 1 tab(s) orally once a day for 30 day(s) Active Albuterol Sulfate HFA 108 (90 Base) MCG/ACT 2 puff inhalation qid and q2h prn 08/30/2023 Active Venlafaxine HCl ER 75 MG 1 cap(s) orally once a day for 90 days 01/23/2021 Not-Taking Tamoxifen Citrate 20 MG 1 tab(s) orally once a day for 30 day(s) Not-Taking Zithromax 500 MG 1 tablet Orally lázaro y for 5 days 08/30/2023 Active VITAL SIGNS Weight 141 lbs 08/30/2023 Blood pressure systolic 110 mm Hg 08/30/19 Blood pressure diastolic 80 mm Hg 024 Heart Rate 82 /min 08/30/2023 Height 62 in 08/30/2023 BMI 25.79 kg/m2 08/30/2023 Encounters Encounter Location Date Provider Diagnosis [facility] [facility] 36 [facility] [address] [place] [id number] 08/30/2023 Katiuska Ramachandran URI (upper respirato ry infection) J06.9 ASSESSMENTS Encounter Date Diagnosis Assessment Notes Treatment Notes Treatment Clinical Notes 08/30/2023 URI (upper respiratory infection) (ICD-10 - J06.9) wrong RX and WM notified with new RX; To start Zpak; does not need inhaler, I spoke with pharmacist; fluids, rest, supportive measures for fever/symptom relief PLAN OF TREATMENT Medication Medication Name Sig Start Date Stop Date Notes Albuterol Sulfate HFA 108 (9 0 Base) MCG/ACT 2 puff inhalation qid and q2h prn 08/30/2023 Zithromax 500 MG 1 tablet Orally lázaro y for 5 days 08/30/2023 Treatment Notes Assessment Notes URI (upper respiratory infection) wrong RX and WM notified with new RX; To start Zpak; does not need inhaler, I spoke with pharmacist; fluids, rest, supportive measures for fever/symptom relief Next Appt Details Follow Up: prn, Reason: Provider Name:Liz Collier, 02/22/2024 02:15:00 PM, [address] [facility] 36 [facility], [address], [place], [phone], Progress Notes * Examination Category Sub-Category Detail Notes ENT/Respiratory Oral cavity : no erythema or e xudate seen on pharynx Ears: right TM is pink Neck : supple, no cervical lymphadenopathy Heart : RRR Lungs: CTAB A&P with good a ir exchange General Appearance: well nourished and h ydrated, NAD, alert, active Nose : nares patent Eyes: sclera and conjuncti va clear History and Physical Notes * HPI (History of Present Illness) Category Sub-Category Detail Notes ENT/respiratory sore throat swallowing painf ul ear pain both ears are aching Short of Breath Chest Pain cough dry without any sput um production Fever 101 started last nig ht post nasal drainage headache smoking body aches aching all over
--- OUTSIDE RECORDS SUMMARY | 2024-02-22 15:08 | XMS_ITS ---
Author Organization [facility] Address [address] [facility] [address] [place] [id number] Care Team Providers Care Instructor Adjunct Pharmacy Technician Name Role Phone Sebastien Damon Primary Care Provider [phone] Katiuska Ramachandran Unavailable [phone] ALLERGIES No Known Allergies RESULTS Component Value Reference Range Notes CBC Fingerstick [...] FOR VISIT SORE THROAT AND EAR ACHE MEDICATIONS Medication SIG (Take, Route, Fr equency, Duration) Notes Start Date End Date Status Meloxicam 7.5 MG 1 tab(s) orally once a day for 30 day(s) Active VITAL SIGNS Weight 136.6 lbs 01/24/2024 Blood pressure systolic 116 mm Hg 01/24/20 24 Blood pressure diastolic 68 mm Hg 024 Heart Rate 79 /min 01/24/2024 Height 62 in 01/24/2024 BMI 24.98 kg/m2 01/24/2024 Encounters Encounter Location Date Provider Diagnosis [place] [address] [facility] [address] [place] [id number] 01/24/2024 Katiuska Ramachandran URI (upper respirato ry infection) J06.9 ASSESSMENTS Encounter Date Diagnosis Assessment Notes Treatment Notes Treatment Clinical Notes 01/24/2024 URI (upper respiratory infection) (ICD-10 - J06.9) fluids, rest, supportive measures for fever/symptom relief, OTC decongestant and/or cough medicine of choice; restart flonase PLAN OF TREATMENT Treatment Notes Assessment Notes URI (upper respiratory infection) fluids , rest, supportive measures for fever/symptom relief, OTC decongestant and/or cough medicine of choice; restart flonase Next Appt Details Follow Up: prn, Reason: Provider Name:Liz Rodríguez kellen, 02/22/2024 02:15:00 PM, [address] [facility] [address] [facility], [address], [place], [place], [phone], Progress Notes * Examination Category Sub-Category Detail Notes ENT/Respiratory Oral cavity : no erythema or e xudate seen on pharynx Ears: auditory canals norm al bilaterally tympanic membranes normal bilaterally Neck : supple no cervical l ymphadenopathy Heart : RRR Lungs: CTAB A&P General Appearance: well nourished and h ydrated NAD alert active Nose : nares patent Eyes: sclera and conjuncti va clear History and Physical Notes * HPI (History of Present Illness) Category Sub-Category Detail Notes ENT/respiratory sore throat Pt is here today [...]
[2024-02-22 15:35] LABS: Basophils # 0.1 K/mm3 (0-0.2); Eosinophils # 0.1 K/mm3 (0.0-0.4); Eosinophils % 1.1 % (0.1-12.0); Hematocrit 40.8 % (37.0-47.0); Hemoglobin 14.1 g/dL (12.2-16.2); Lymphocytes # 2.3 K/mm3 (0.7-4.5); Mean Corpuscular HGB Conc 34.6 g/dL (31.8-35.4); Mean Corpuscular Volume 89.4 fl (81-99); Monocytes # 0.4 K/mm3 (0.1-1.0); Monocytes % 5.7 % (1.7-9.3); Neutrophils # 3.6 K/mm3 (1.8-7.8); Neutrophils % 56.2 % (37.0-80.0); Platelet Count 268 K/mm3 (142-424); Red Blood Count 4.57 M/mm3 (4.20-5.40); Red Cell Distribution Width 13.3 % (11.5-17.5); White Blood Count 6.4 K/mm3 (4.8-10.8)
[2024-02-22 15:45] LABS: Alanine Aminotransferase 32 U/L (12-78); Albumin Level 4.4 g/dl (3.5-5.0); Alkaline Phosphatase 67 U/L (38-126); Anion Gap 8.7 mEq/L (5-15); Aspartate Amino Transferase 30 U/L (14-36); Bilirubin,Total 0.5 mg/dl (0.2-1.3); Blood Urea Nitrogen 9 mg/dl (7-17); Calcium 9.2 mg/dl (8.4-10.2); Carbon Dioxide 32 mmol/L (22.0-30.0); Chloride 105 mmol/L (98-107); Chol/HDL Ratio 4.9 (1-3.5); Cholesterol 222 mg/dl (140-200); Estimated Glomerular Filt Rate 68 ml/min (>60); GFR (African American) 83 ML/MIN (>60); Globulin 2.2 g/dL (1.3-3.2); Glucose 78 mg/dl (74-100); HDL Cholesterol 45 mg/dl (40-60); Potassium 3.7 mmoL/L (3.5-5.1); Sodium 142 mmol/L (136-145); Total Protein,Serum 6.6 g/dl (6.3-8.2); Triglycerides 176 mg/dl (30-150); VLDL Cholesterol 35 mg/dL (0-40)
[2024-02-22 15:56] LABS: Direct LDL Cholesterol 137.67 mg/dL (100-129)
[2024-02-22 16:11] LABS: Iron 100 ug/dL (37-170)
[2024-02-22 16:31] LABS: T4 (Thyroxine) 8.6 ug/dl (5.53-11.0); Thyroid Stimulating Hormone 1.73 uIU/mL (0.465-4.68)
== END 2024-02-22 23:59 | disposition home or self-care (01) ==
LOC: LAB 15:06
PROVIDERS: PCP Family Medicine; Visit Provider Family Medicine
DX: R53.83 Other fatigue (principal); R06.83 Snoring; Z83.3 Family history of diabetes mellitus
CPT/HCPCS: 36415; 80050; 80053; 80061; 83540; 84436; 84443; 85025

== ENCOUNTER 2024-03-19 18:07 | Emergency (ER) | payer OTHER, SELFPAY ==
[2024-03-19 18:30] VITALS: BP 135/85; PULSE 74; RESP 18; TEMP 36.9; O2SAT 98; BMI 26.2
[2024-03-19 18:44] LABS: UTC Strep Screen (Rapid) Negative (Negative)
--- NOTE | 2024-03-19 19:07 | EXP.UTC ---
Discharge Plan Disposition Patient Disposition: Home, Self-Care Condition: Good Prescriptions Prescriptions: New nystatin 100,000 unit/mL suspension 5 ml PO QID 7 Days Qty: 140 0RF Rx Instructions: swish and spit Referrals Follow up/Referrals: Sebastien Damon MD [Primary Care Provider] - See instructions Activity Restrictions/Add. Instructions Additional Instructions/Restrictions: Meds as ordered Yogurt 3 times a day If symptoms worsen or do not improve return Follow-up with PCP Clinical Impressions Clinical Impression: Candidiasis of mouth Instructions Patient Instructions: DI for Thrush Print Language Print Language: Kazakh Discharge [facility] [place] General Stated complaint: sore throat,ears hurt Mode of Arrival: Ambulatory Source of Information: Patient Limitations: No Limitations Time Seen by Provider: 03/19/24 18:56 Description of Symptoms (Recalled from Triage Doc. by RN): PATIENT C/O SORE THROAT AND BILATERAL EAR PAIN SINCE YESTERDAY HEENT Symptoms (Recalled from RN notes): Yes Resp Symptoms (Recalled from RN notes): No Skin Symptoms (Recalled from RN notes): No MS Symptoms (Recalled from RN notes): No Functional Status (Recalled from RN notes): WNL History of Present Illness Provider Complaint: 43-year-old female presents for bilateral ear pain, sore throat, and decreased taste. Related Data Previous Rx's ?Medication ?Instructions ?Recorded nystatin 100,000 unit/mL oral 5 ml PO QID 7 days #140 mL 03/19/24 suspension Allergies Allergy/AdvReac Type Severity Reaction Status Date / Time No Known Allergies Allergy Verified 05/03/23 11:04 Worker's Comp Is this a Worker's Comp case?: No [facility] Disclaimer: The information contained in this section may have been updated after the patient was seen, as this information can be updated by other users. 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) Smoking Status: Never smoker alcohol intake: current alcohol intake frequency: holidays/special occasions only substance use type: denies use current occupational status: employed Travel in the last 8 weeks: None household members: spouse housing: house number of children: 2 current occupation: [employer]- [employer] caffeine: Yes ROS Obtained: Yes Systems reviewed as appropriate & no additional complaints except as documented Physical Exam General General appearance: alert and in no apparent distress Eye Eye exam: Present normal appearance ENT ENT exam: Present mucous membranes moist and TM's normal bilaterally Expanded ENT Exam TM/Canal exam: Bilateral TM: bulging and effusion Open Mouth Image: 1. White patches 2. White patches 3. White patches Mouth exam: Present other Respiratory Respiratory exam: Present normal lung sounds bilaterally Cardiovascular Cardiovascular exam: Present regular rate and normal rhythm Neurological Exam Neurological exam: Present alert and oriented X3 Medical Decision Making Medical Records Medical records reviewed: Yes I reviewed the patient's medical records. Screening: Per USPSTF and CDC recommendations, given the prevalence of disease in our region, it is our hospital?s policy to screen for HIV and viral Hepatitis for all patients aged 18 and over and those with ongoing risk factors. Sacha Inquiry Pt receiving controlled substance: No Sacha was queried for this patient: No Vital Signs: 03/19/24 18:30 Temperature 98.4 F Temperature Source Oral Pulse Rate [Left Brachial] 74 Respiratory Rate 18 Blood Pressure [Left Arm] 135/85 Blood Pressure Mean [Left Arm] 101 Blood Pressure Source [Left Arm] Automatic Cuff Blood Pressure Position [Left Arm] Sitting 02 Sat by Pulse Oximetry 98 Oxygen Delivery Method Room Air Lab Data Lab results reviewed: Yes I reviewed the patient's lab results. Lab Results 03/19/24 18:35: Strep Scn Rapid Clinic Negative Orders (Tests/Meds): ORDERS Category Date Time Status Strep Screen Confirmation Stat Micro 03/19/24 18:35 Received
[2024-03-19 19:15] VITALS: BP 135/85; PULSE 74; RESP 18; TEMP 36.9; O2SAT 98
== END 2024-03-19 19:19 | disposition home or self-care (01) ==
PROVIDERS: Emergency Provider Nurse Practitioner Family; PCP Family Medicine
DX: B37.0 Candidal stomatitis (principal)
CPT/HCPCS: 87880; 99213; G0381

== ENCOUNTER 2024-04-27 11:05 | Emergency (ER) | payer OTHER, SELFPAY ==
[2024-04-27 11:17] VITALS: BP 122/78; PULSE 99; RESP 18; TEMP 36.9; O2SAT 97; BMI 26.4
--- NOTE | 2024-04-27 11:18 | EXP.UTC ---
Discharge Plan Disposition Patient Disposition: Home, Self-Care Condition: Good Prescriptions Prescriptions: New prednisone 10 mg tablet 10 mg PO BID 4 Days Qty: 8 0RF azithromycin [Zithromax] 250 mg tablet 250 mg PO UD DOSE PK Qty: 6 0RF Rx Instructions: Take two (2) tablets today, then one (1) tablet days #2 thru #5 oseltamivir [Tamiflu] 75 mg capsule 75 mg PO BID 5 Days Qty: 10 0RF ewusfjdedbrhlqb-sfkevsthb-EW [Bromfed DM] 2-30-10 mg/5 mL Syrup 5 ml PO Q6H PRN (Reason: Cough) Qty: 240 0RF No Action nystatin 100,000 unit/mL suspension 5 ml PO QID 7 Days Qty: 140 0RF Rx Instructions: swish and spit Referrals Follow up/Referrals: Sebastien Damon MD [Primary Care Provider] - See instructions Activity Restrictions/Add. Instructions Additional Instructions/Restrictions: Drink plenty of fluids. Take tylenol or ibuprofen for pain or fever. Take the medications as directed. Follow up with your regular doctor. GO TO THE ER FOR ANY WORSENING SYMPTOMS Clinical Impressions Clinical Impression: Influenza A Stand Alone Forms Stand Alone Forms: Work/School Release Instructions Patient Instructions: Influenza, DI for Influenza -- Adult, Oseltamivir Print Language Print Language: Arabic Discharge ED Provider: Sloan Lim [facility] General Stated complaint: fever, body aches, chills, Time Seen by Provider: 04/27/24 11:18 History of Present Illness Provider Complaint: She states that since yesterday she has had fever, body aches, chills, sinus congestion, ear pain, and a very sore throat. Related Data Previous Rx's ?Medication ?Instructions ?Recorded nystatin 100,000 unit/mL oral 5 ml PO QID 7 days #140 mL 03/19/24 suspension azithromycin 250 mg tablet 250 mg PO UD DOSE PK #6 tabs 04/27/24 (Zithromax) ktxaehffhljfhte-sjxzquiwebvblyk-UN 5 ml PO Q6H PRN Cough #240 mL 04/27/24 2 mg-30 mg-10 mg/5 mL oral syrup (Bromfed DM) oseltamivir 75 mg capsule (Tamiflu) 75 mg PO BID 5 days #10 caps 04/27/24 prednisone 10 mg tablet 10 mg PO BID 4 days #8 tabs 04/27/24 Allergies Allergy/AdvReac Type Severity Reaction Status Date / Time No Known Allergies Allergy Verified 05/03/23 11:04 [facility] Disclaimer: The information contained in this section may have been updated after the patient was seen, as this information can be updated by other users. 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 caffeine: Yes Have you lived/traveled outside US in past 30 days?: No Contact w/someone who lives/traveled outside US past 30 days?: No Exposure to someone with infectious disease in past 14 days?: No Do you have a fever (greater than 100.4 F or 38 C)?: Yes Have you tested positive for COVID-19: No Exposed to someone with COVID-19 in past 14 days?: No Do you have a sore throat?: No Do you have a cough?: No Do you have any weakness?: No Do you have any diarrhea?: No Are you experiencing any unusual bleeding?: No Do you have any muscle aches/pain?: Yes Do you have any abdominal pain?: No Are you experiencing loss of taste or smell?: No ROS Obtained: Yes All systems reviewed & no additional complaints except as documented Constitutional Constitutional: Reports chills and Reports fever(s) Eyes Eyes: Denies eye discharge ENT Ears, Nose, Mouth, and Throat: Reports as per HPI Cardiovascular Cardiovascular: Denies chest pain Respiratory Respiratory: Denies chest congestion and Reports cough Gastrointestinal Gastrointestingal: Reports nausea; Denies abdominal pain, constipation, cramping, diarrhea or vomiting Musculoskeletal Musculoskeletal: Denies arthralgias Integumentary/Breasts Skin/Breast: Denies rash Neurologic Neurologic: Denies paresthesias Physical Exam General General appearance: alert and in no apparent distress Head Head exam: atraumatic, normocephalic and normal inspection Eye Eye exam: Present normal appearance, PERRL and EOMI ENT ENT exam: Present mucous membranes moist and normal external ear exam Expanded ENT Exam TM/Canal exam: Bilateral TM: erythema and bulging Nose exam: Absent sinus tenderness Mouth exam: Present normal external inspection; Absent drooling Teeth exam: Present normal inspection Throat exam: Present tonsillar erythema, tonsillomegaly and tonsillar exudate Neck Neck exam: Present normal inspection, full ROM and trachea midline; Absent tenderness, meningismus or lymphadenopathy Chest Chest inspection: Present normal inspection and symmetric chest wall rise; Absent tenderness Respiratory Respiratory exam: Present normal lung sounds bilaterally; Absent respiratory distress, wheezes, stridor or accessory muscle use Cardiovascular Cardiovascular exam: Present regular rate and normal rhythm; Absent systolic murmur or diastolic murmur Abdominal Exam Abdominal exam: Present soft and normal bowel sounds; Absent distention, tenderness, guarding, rebound or rigidity Extremities Exam Extremities exam: Present normal inspection and normal capillary refill; Absent calf tenderness Back Exam Back exam: Present normal inspection and full ROM; Absent tenderness, CVA tenderness (R) or CVA tenderness (L) Neurological Exam Neurological exam: Present alert, oriented X3 and CN II-XII intact Psychiatric Psychiatric exam: Present normal affect and normal mood Skin Skin exam: Present warm, dry, intact and normal color Medical Decision Making Medical Records Medical records reviewed: No I reviewed the patient's medical records. Screening: Per USPSTF and CDC recommendations, given the prevalence of disease in our region, it is our hospital?s policy to screen for HIV and viral Hepatitis for all patients aged 18 and over and those with ongoing risk factors. Sacha Inquiry Pt receiving controlled substance: No Lab Data Lab results reviewed: Yes I reviewed the patient's lab results.
[2024-04-27 11:24] LABS: UTC Influenza A Antigen Positive (Negative); UTC Influenza B Antigen Negative (Negative)
[2024-04-27 11:36] VITALS: BP 122/78; PULSE 99; RESP 18; TEMP 36.9
== END 2024-04-27 11:40 | disposition home or self-care (01) ==
PROVIDERS: Emergency Provider Nurse Practitioner Family; PCP Family Medicine
DX: J10.1 Influenza due to other identified influenza virus with other respiratory manifestations (principal)
CPT/HCPCS: 87804; 99213; G0381

== ENCOUNTER → 2024-08-07 11:17 | Outpatient (CLI) | payer OTHER, SELFPAY | LOC: SL 11:18 | PROVIDERS: PCP Family Medicine; Visit Provider Family Medicine | DX: R53.83 Other fatigue (principal) | CPT/HCPCS: 95806 ==

== ENCOUNTER 2025-02-03 10:44 | Outpatient (CLI) | payer OTHER, SELFPAY ==
--- OUTSIDE RECORDS SUMMARY | 2023-08-30 09:30 | XMS_ITS ---
[facility] Address [address] [place] [id number] Care Team Providers Care Room Service Runner Name Role Phone Sebastien Damon Primary Care Provider Katiuska Ramachandran Unavailable [phone] Allergies No Known Allergies Results Component Value Reference Range Notes Influenza Screen (in house) Reviewed date:08/30/2023 03:08:27 PM Interpretation:Negative Performing Lab: Notes/Report: Negative results neg CBC Fingerstick (in house) Reviewed date:08/30/2023 03:08:13 PM Interpretation: Performing Lab: Notes/Report: wbc 5.7 3.5 - 10 lym 30.0 15 - 50 mid 6.2 2 - 15 gran 63.8 35 - 80 rbc 4.97 3.5 - 5.5 hgb 14.7 11.5 - 16.5 hct 45.4 35 - 55 mcv 91.4 75 - 100 mch 29.6 25 - 35 mchc 32.3 31 - 38 plat 192 100 - 400 Covid test (in house) Reviewed date:08/30/2023 03:08:01 PM Interpretation:Negative Performing Lab: Notes/Report: Negative Result: neg REASON FOR VISIT fever,chill, body aches Medications Medication SIG (Take, Route, Frequency, Duration) Notes Start Date End Date Status Meloxicam 7.5 MG 1 tab(s) orally once a day; Duration: 30 day(s) Active Albuterol Sulfate HFA 108 (90 Base) MCG/ACT 2 puff inhalation qid and q2h prn 08/30/2023 Active Venlafaxine HCl ER 75 MG 1 cap(s) orally once a day; Duration: 90 days 01/23/2021 Not-Takin g Tamoxifen Citrate 20 MG 1 tab(s) orally once a day; Duration: 30 day(s) Not-Taking Zithromax 500 MG 1 tablet Orally lázaro y; Duration: 5 days 08/30/2023 Active Vital Signs Blood pressure systolic 110 mm Hg 08/30/19 24 Blood pressure diastolic 80 mm Hg 024 Heart Rate 82 /min 08/30/2023 Height 62 in 08/30/2023 Weight 141 lbs 08/30/2023 BMI 25.79 kg/m2 08/30/2023 Encounters Encounter Location Date Provider Diagnosis [facility] [address] [facility] [address] [facility] [address] [facility] [place] [phone] 08/30/2023 Katiuska Ramachandran URI (upper respirato ry infection) J06.9 Assessments Encounter Date Diagnosis (ICD Code) Assessment Notes Treatment Notes Treatment Clinical Notes Section Notes 08/30/2023 URI (upper respiratory infection) (ICD-10 - J06.9) wrong RX and [facility] notified with new RX; To start Zpak; does not need inhaler, I spoke with [facility] pharmacist; fluids, rest, supportive measures for fever/symptom relief Plan Of Treatment Medication Medication Name Sig Start Date Stop Date Notes Albuterol Sulfate HFA 108 (9 0 Base) MCG/ACT 2 puff inhalation qid and q2h prn 08/30/2023 Zithromax 500 MG 1 tablet Orally lázaro y; Duration: 5 days 08/30/2023 Treatment Notes Assessment Notes URI (upper respiratory infection) wrong RX and [facility] notified with new RX; To start Zpak; does not need inhaler, I spoke with [facility] pharmacist; fluids, rest, supportive measures for fever/symptom relief Next Appt Details Follow Up: prn, Reason: Progress Notes * SHAILESH ALBRECHTDOB:1980 (44 yo F)Acc No.[id number]:08/30/2023 Progress Notes Patient: SHAILESH FREED Provider: NUZHAT Goel :1980 A ge:43 Y S ex:Female Date:08/30/2023 Address:[address] [place], [place] [address] [address] [place], [id number] Pcp:Sebastien Damon Subjective: * Chief Complaints: * 1 . Fever,chill, body aches. * HPI: E NT/respiratory: 43 year old female presents with c/o sore throat s wallowing painful. c/o cough d ry without any sputum production. c/o Fever 101 started last night. c/o ear pain both ears are aching. c/o post nasal drainage. c/o headache. c/o body aches aching all over . Denies : Chest Pain. D enies : Short of Breath. D enies : smoking. eating and drinking less. * ROS: D ERMATOLOGY: no R tyson. n o H ivy. G ASTROENTEROLOGY: no V omiting. n o D iarrhea. U ROLOGY: no D ifficulty urinating. n o B lood in urine. * 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: H igh risk for breast cancer. * Surgical History: l t wrist . * Hospitalization/Major Diagno stic Procedure: t otal hysterectomy 01/14/18. * Family History: F ather: alive. M other: alive. 1 sister(s) . 2 daughter(s) . . * Social History: C URRENT TOBACCO USE S moking Status: Patient does NOT smoke. C affeine: yes, frequency:. Marital Status: . Past smoking status: no. * Medications: T aking Meloxicam 7.5 MG Tablet 1 tab(s) orally once a day , Not-Taking Venlafaxine HCl ER 75 MG Capsule Extended Release 24 Hour 1 cap(s) orally once a day , Not- Taking Tamoxifen Citrate 20 MG Tablet 1 tab(s) orally once a day , Medication List reviewed and reconciled with the patient * Allergies: N .K.D.A. Objective: * Vitals: W t:141, Temp:98.3, BP:110/80, HR:82, Nurse:dm, Ht: 62, BMI:25.79. * Examination: E NT/Respiratory: General Appearance: well nourished and hydrated, NAD, alert, active. E yes: sclera and conjunctiva clear. E ars: right TM is pink. N ose : nares patent. O ral cavity : no erythema or exudate seen on pharynx. N elan : supple, no cervical lymphadenopathy. H eart : RRR. L ungs: CTAB A&P with good air exchange. Assessment: * Assessment: 1. U RI (upper respiratory infection) - J06.9 (Primary) Plan: * Treatment: * Labs: * L ab: Covid test (in house) (Collection Date & Time - 08/30/2023) N egative Value Reference Range R esult: neg * Ruth Stratton 08/30/2023 2 :24:16 PM > , Provider reviewed results while patient in office.Katiuska Ramachandran 08/30/2023 3:07:58 PM > ?Lab: CBC Fingerstick (in house) (Collection Date & Time - 08/30/2023)* Value Reference Range w bc 5.7 3.5 - 10 * l ym 30.0 15 - 50 * m id 6.2 2 - 15 * g ran 63.8 35 - 80 * r bc 4.97 3.5 - 5.5 * h gb 14.7 11.5 - 16.5 * h ct 45.4 35 - 55 * m cv 91.4 75 - 100 * m ch 29.6 25 - 35 * m chc 32.3 31 - 38 * p lat 192 100 - 400 * Ruth Stratton 08/30/2023 2 :25:57 PM > , Provider reviewed results while patient in office.Katiuska Ramachandran 08/30/2023 3:08:10 PM > ?Lab: Influenza Screen (in house) (Collection Date & Time - 08/30/2023) ?Negative* Value Reference Range r esults neg * Ruth Stratton 08/30/2023 2 :26:31 PM > , Provider reviewed results while patient in office.Katiuska Ramachandran 08/30/2023 3:08:24 PM > * Procedure Codes: 3 6416 CAPILLARY BLOOD DRAW, 52712 CBC WITH AUTO DIFF, 95919 COVID TEST IN HOUSE, Modifiers: QW , 8[address] Flu Test- Nasal Swab, Modifiers: QW * Follow Up: p rn * Images: Billing Information: * Visit Code: 40044 Office Visit, Est Pt., Level 3. * Procedure Codes: 14153 CAPILLARY BLOOD DRAW. 16564 CBC WITH AUTO DIFF. 18781 COVID TEST IN HOUSE. Modifiers: QW 73023 Flu Test- Nasal Swab. Modifiers: QW * Electronic signature of Katherin fairchildorion Ramachandran APRN on 02/05/2025 at 11:01 AM EDT Sign off status: Pending * Provider: NUZHAT Goel Date: 0 08/30/2023 Generated for Salas martinez/Chapo/eTransmitting on: 1 11:01 AM EDT History and Physical Notes * HPI (History of Present Illness) Category Sub-Category Detail Notes Category Not es ENT/respiratory sore throat swallowing painful eatin g and drinking less ear pain both ears are aching Short of Breath Chest Pain cough dry without any sput um production Fever 101 started last nig ht post nasal drainage headache smoking body aches aching all over Examination Category Sub-Category Detail Notes Category Not es ENT/Respiratory Oral cavity : no erythema or exudate s een on pharynx Ears: right TM is pink Neck : supple, no cervical lymphadenopathy Heart : RRR Lungs: CTAB A&P with good a ir exchange General Appearance: well nourished and h ydrated, NAD, alert, active Nose : nares patent Eyes: sclera and conjuncti va clear
--- OUTSIDE RECORDS SUMMARY | 2024-01-24 10:00 | XMS_ITS ---
Author Organization [facility] Address [address] [place] [id number] Care Team Providers Care Digitizer Operator Name Role Phone Nelson Sebastien Primary Care Provider Katiuska Ramachandran Unavailable [phone] Allergies No Known Allergies Results Component Value [...] [address] [place] [id number] 01/24/2024 Katiuska Ramachandran URI (upper respirato ry [...] Notes * SHAILESH ALBRECHTDOB:1980 (44 yo F)Acc No.[id number]:01/24/2024 Progress Notes Patient: SHAILESH FREED Provider: NUZHAT Goel :1980 A ge:43 Y S ex:Female Date:01/24/2024 Address:[address] [place] [address] [address] [facility] [id number] Pcp:Sebastien Damon Subjective: * Chief Complaints: * [...] in the office * Procedure Codes: 9 3560 [place], [address] CAPILLARY BLOOD DRAW, 22967 CBC WITH AUTO DIFF * Follow Up: p rn * Images: Billing Information: * Visit Code: 46362 Office Visit, Est Pt., Level 3. * Procedure Codes: [address] [place]. [address] CAPILLARY BLOOD DRAW. 91560 CBC WITH AUTO DIFF. * Electronic signature of Katherin fairchidlorion Ramachandran APRN on 02/05/2025 at 11:02 AM EDT Sign off status: Pending * Provider: NUZHAT Goel Date: Generated for Salas martinez/Chapo/eTransmrashaun on: 11:02 AM EDT History and Physical Notes * [...]
--- OUTSIDE RECORDS SUMMARY | 2024-02-22 10:15 | XMS_ITS ---
Author Organization [facility] Address [address] [place] [id number] Care Team Providers Care Transcribing Machine Mechanic Name Role Phone Sebastien Damon Primary Care Provider [phone] Liz Workman Leodan Unavailable [phone] Allergies No Known Allergies Results Component Value [...] [address] [place] [id number] 02/22/2024 Liz Workman Fatigue R53.83 and Snoring [...] Notes * SHAILESH ALBRECHTDOB:1980 (44 yo F)Acc No.[id number]:02/22/2024 Progress Notes Patient: SHAILESH FREED Provider: Liz Workman M.D. :1980 A ge:43 Y S ex:Female Date:02/22/2024 Address:[address] [facility] [address] [place] Pcp:Sebastien Damon Subjective: * Chief Complaints: * [...] to have this drawn, order resent to [facility] ?Lab: H-Iron (Collection Date & Time - 02/29/2024)* see duplicate order ?Lab: H-TSH (Collection Date & Time - 02/29/2024)* see duplicate order * Follow Up: v ia phone to report test results * Images: Billing Information: * Visit Code: 96824 Office Visit, Est Pt., Level 3. * Procedure Codes: * Electronic signature of Liz Workman MD on 02/05/2025 at 11:01 AM EDT Sign off status: Pending * Provider: Liz Workman M.D. Date: 04/23/2023 Generated for Dorisi juan/Chapo/eTransmitting on: 11:01 AM EDT History and Physical Notes [...]
--- OUTSIDE RECORDS SUMMARY | 2024-07-13 09:45 | XMS_ITS ---
Author Organization [place] Address 1210 [facility] [address] [place] [id number] Care Team Providers Care Assistant Center Director Name Role Phone ConestogaAndreySebastien Primary Care Provider [phone] Lisa Joselin Unavailable [phone] Allergies No Known Allergies REASON FOR VISIT [...] Encounter Location Date Provider Diagnosis [place] [facility] [address] [place] [id number] 07/13/2024 Joselin Gonzalez Non-recurrent acute serous otitis [...] Notes * SHAILESH ALBRECHTDOB:1980 (44 yo F)Acc No.[id number]:07/13/2024 Progress Notes Patient: SHAILESH FREED Provider: MITCH Mike :1980 A ge:43 Y S ex:Female Date:07/13/2024 Address:[address] [place] [address] [address] [id number] Pcp:Sebastien Damon Subjective: * Chief Complaints: * [...] * Images: Billing Information: * Visit Code: 44089 Office Visit, Est Pt., Level 3. * Procedure Codes: 3074F SYST BP LT 130 MM HG. 3078F DIAST BP < 80 MM HG. * Electronic signature of MITCH Metz on 02/05/2025 at 11:01 AM EDT Sign off status: Pending * Provider: MITCH Mike Date: 0 07/13/2024 Generated for Salas martinez/Chapo/eTransmitting on: 1 11:01 [...]
--- OUTSIDE RECORDS SUMMARY | 2024-11-17 07:45 | XMS_ITS ---
Author Organization [place] Address [address] [facility] [address] [place] [phone] Care Team Providers Care Occupational Health Nurse Name Role Phone Sebastien Damon Primary Care Provider [phone] Allergies No Known Allergies REASON FOR VISIT [...] Risk Notes Problem Obstructive sleep apnea syndrome (26452434) CHERIE on CPAP (G47.33) Active confirmed Problem Adjustment disorder (61089084) Adjustment disorder, unspecified type (F43.20) Active confirmed Vital Signs Blood pressure systolic 110 mm Hg 11/18/19 25 Blood pressure diastolic 70 mm Hg 025 Heart Rate 88 /min 11/17/2024 Height 62 in 11/17/2024 Weight 140.4 lbs 11/17/2024 BMI 25.68 kg/m2 11/17/2024 Encounters Encounter Location Date Provider Diagnosis [place] [address] [place] [id number] 11/17/2024 Sebastien Damon CHERIE on CPAP G47.33 [...] Notes * SHAILESH ALBRECHTDOB:1980 (44 yo F)Acc No.[id number]:11/17/2024 Progress Notes Patient: SHAILESH FREED Provider: Katlyn Damon M.D. :1980 A ge:44 Y S ex:Female Date:11/17/2024 Address:[address] [place] [address] [address] [id number] Subjective: * Chief Complaints: * 1 . [...] unspecified type - F43.20 3 . B [place] 25.0-25.9,adult - Z68.25 Plan: * Treatment: * Procedure Codes: 1 036F TOBACCO NON-USER, 3074F SYST BP LT 130 MM HG, 3078F DIAST BP < 80 MM HG * Follow Up: v ia phone to report progress * Images: Billing Information: * Visit Code: 77898 Office Visit, Est Pt., Level 3. * Procedure Codes: 1036F TOBACCO NON-USER. 3074F SYST BP LT 130 MM HG. 3078F DIAST BP < 80 MM HG. * Electronic signature of Suki Damon MD on 02/05/2025 at 11:02 AM EDT Sign off status: Pending * Provider: Katlyn Damon M.D. Date: 0 11/17/2024 Generated for Salas martinez/Chapo/Josephitting on: 11:02 AM EDT History and Physical [...]
--- OUTSIDE RECORDS SUMMARY | 2025-02-05 11:01 | XMS_ITS | Clinical Summary ---
Author Organization [facility] Address [address] [place] [address] Care Team Providers Care Laborer Drying Department Name Role Phone Sebastien Damon MD Primary Care Provider [phone] Allergies No known active allergies Medications ibuprofen 800 MG tablet Take 1 tablet (800 mg) by mouth every 6 (six) hours if needed. 06/03/2020 Active meloxicam (Mobic) 7.5 MG tablet Take 1 tablet (7.5 mg) by mouth if needed. 02/03/2022 Active ergocalciferol 1.25 MG (66978 UT) capsule Take 1 capsule (50,000 Units) by mouth 1 (one) time per week. 02/13/2022 Active lidocaine-prilo shamika (Emla) 2.5-2.5 % cream 06/05/2022 Act corrina cholecalciferol (Vitamin D-3) 50 MCG (2000 UT) capsule Take 1 capsule (2,000 Units) by mouth 1 (one) time each day. Active Active Problems Problem Noted Date Diagnosed Date H/O total hysterectomy with bilateral salpingo-oophorectomy (BSO) Resolved Problems Problem Noted Date Diagnosed Date Resolved Date Second hand smoke exposure 09/24/2021 0 12/31/2024 Family History 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 Relation Name Comments Breast cancer Maternal Grandmother Breast cancer Mother Saba FH: breast can cer Cancer Mother Saba Diabetes Mother Saba Hypertension Mother Saba Lung cancer Mother Saba FH: lung cancer Breast cancer Mother's Sister Breast cancer Other FH: breast can cer Cancer Paternal Grandfather Samuel Leukemia Paternal Grandfather Samuel FH: jb kemia Relation Name Status Comments Maternal Grandmother Mother Saba Mother's Sister Other Paternal Grandfather Samuel Social History Tobacco Use Types Packs/Day Years Used Date Smoking Tobacco: Never Smokeless Tobacco: Never Tobacco Cessation:Counseling Given: Not Answered Alcohol Use Standard Drinks/Week Comments Yes 0 (1 standard drink = 0.6 oz pur e alcohol) Occasionally PHQ-2 Answer Date Recorded Patient Health Questionnaire-2 Score 0 04/19/2024 Comments No Sex and Gender Information Value Date Recorded Sex Assigned at Female 09/23/2020 9:24 AM EDT Legal Sex Female 6:25 PM EDT Gender Identity Female 09/23/2020 9:24 AM EDT Sexual Orientation Straight 09/23/2020 9: 24 AM EDT Last Filed Vital Signs Vital Sign Reading Time Taken Comments Blood Pressure 117/73 10/18/2024 11:26 AM EDT Pulse 66 10/18/2024 11:26 AM EDT Temperature 36.7 C (98 F) 04/19/2024 1:54 PM EST Respiratory Rate 17 10/18/2024 11:26 AM EDT Oxygen Saturation 97% 10/18/2024 11:26 AM EDT Inhaled Oxygen Concentration - - Weight 63.9 kg (140 lb 14 oz) 10/18/2024 11:26 A M EDT Height 154.9 cm (5' 1 ) 10/18/2024 11:26 AM EDT Body Mass Index 26.62 10/18/2024 11:26 AM EDT Plan of Treatment Upcoming Encounters Date Type Department Care Team ([facility] st Contact Info) Description 05/14/2025 10:00 AM EST Appointment [facility] [place] [address] [address] [facility] [address] [place] [address] 05/14/2025 10:30 AM EST Office Visit [facility] [address] [facility] [place] [address] Luz Goldberg, BOOK RETAILER [address] [facility] [address] [place] [address] Health Maintenance Due Date Last Done Comments [facility]-HIV Screening 1980 [facility]-Hepatitis C Screening 1980 [facility]-/Child/Adol SDOH Screenings 1980 [facility]- SDOH Screenings 1998 [facility]-Adult SDOH Screenings 1998 [facility]-Pneumococcal Vaccine: Pediatrics (0 to 5 Years) and At-Risk Patients (6 to 49 Years) (1 of 2 - PCV) 08/26/1999 [facility]-Zoster Vaccines (1 of 2) 08/26/1999 03/29/2013, 02/23/2013 HPV Vaccines (1 - Risk 3-dose SCDM series) 08/26/2007 Gynecology oncology consult for risk-reducing surgery 2020 [id number] Vaccine (3 - Moderna risk series) 04/25/2021 03/28/2021, 02/28/2021 [facility]-DTaP,Tdap,and Td Vaccines (3 - Td or Tdap) 11/01/2023 10/31/2013, 12/13/2010 [facility]-Influenza Vaccine (#1) 2024 02/09/2024 [facility]-Depression Screening 04/19/2025 04/19/2024 Genetic high-risk breast MRI 10/18/2025 10/18/2024, 10/20/2023, 10/12/2022, Additional history exists [facility]-Varicella Vaccines Completed 03/29/2013, 2012 [facility]-Hepatitis B Vaccines Completed 014, 03/29/2013, 02/02/2013 [facility]-Breast Cancer Screening Discontinued 04/19/2024, 04/14/2023, 03/30/2022, Additional history exists [facility]-Obesity Intervention Completed 04/19/2024, 03/12 [facility]-HIB Vaccines Aged Out No longer e ligible based on patient's age to complete this topic [facility]-Hepatitis A Vaccines Aged Out No longer eligible based on patient's age to complete this topic [facility]-IPV Vaccines Aged Out No longer e ligible based on patient's age to complete this topic [facility]-Rotavirus Vaccines Aged Out No lo nger eligible based on patient's age to complete this topic Procedures Procedure Name Priority Date/Time Associated Diagnosis Comments MR BREAST BILATERAL W AND WO IV CONTRAST Routine 10/18/2024 10:55 AM EDT At high risk for breast cancer MAMMOGRAPHY BREAST SCREENING TOMOSYNTHESIS BILATERAL Routine 04/19/2024 1:39 PM EST BRCA2 gene mutation positive At high risk for breast cancer from Last 3 Months or Most Recently Relevant to Health Maintenance Results * MR Breast Bilateral w and wo IV Contrast (10/18/2024 10:55 AM EDT) Anatomical Region Laterality Modality Breast Bilateral Magnetic Resonan ce Impressions 10/18/2024 4:21 PM EDT BI-RADS Code: BI-RADS 1. Negative RECOMMENDATION: Breast MRI in 1 year Routine Screening Mammogram in 6 months CRITICAL RESULT: No. COMMUNICATION: Per this written report. Drafted by Duncan Barton MD on 10/18/2024 4:17 PM Final report signed by Duncan Barton MD on 10/18/2024 4:21 PM Narrative 10/18/2024 4:21 PM EDT CLINICAL INDICATION: High risk screening. BRCA2 positive, family history breast cancer mother, maternal grandmother. TECHNIQUE: Bilateral Breast MRI was performed on 1.5 Bere Magnet. Axial and Sagittal T2 STIR, axial T1, 3-D axial T1 precontrast, followed by 5 runs postcontrast utilizing Gadavist 6.4 mL intravenously. MIP images and 3-D sagittal imaging was performed. The study was reviewed on a Netlist workstation. COMPARISON: 04/20/2024, 05/12/2024, MRI 10/20/2023. FINDINGS: Bilateral Breast Density: Heterogeneous fibroglandular tissue Background Parenchymal Enhancement: minimal There are no suspicious enhancing masses or areas of nonmass enhancement in either breast. Axillary and incidental findings: No suspicious lymph nodes bilaterally or other incidental finding. Procedure Note Duncan Barton MD - 10/18/2024 CLINICAL INDICATION: High risk screening. BRCA2 positive, family history breast cancer mother,maternal grandmother. TECHNIQUE: Bilateral Breast MRI was performed on 1.5 Bere Magnet. Axial and SagittalT2 STIR, axial T1, 3-D axial T1 precontrast, followed by 5 runspostcontrast utilizing Gadavist 6.4 mL intravenously. MIP images and 3-Dsagittal imaging was performed. The study was reviewed on a Netlistworkstation. COMPARISON: 04/20/2024, 05/12/2024, MRI 10/20/2023. FINDINGS: Bilateral Breast Density: Heterogeneous fibroglandular tissue Background Parenchymal Enhancement: minimal There are no suspicious enhancing masses or areas of nonmass enhancementin either breast. Axillary and incidental findings: No suspicious lymph nodes bilaterally orother incidental finding. IMPRESSION: BI-RADS Code: BI-RADS 1. Negative RECOMMENDATION: Breast MRI in 1 year Routine Screening Mammogram in 6months CRITICAL RESULT: No. COMMUNICATION: Per this written report. Drafted by Duncan Barton MD on 10/18/2024 4:17 PM Final report signed by Duncan Barton MD on 10/18/2024 4:21 PM Azul Costello APRN IMG BI PROCEDURES Final Result * (ABNORMAL) Mammography Breast Screening Tomosynthesis Bilateral (04/19/2024 1:39 PM EST) Anatomical Region Laterality Modality Breast Bilateral Mammography Impressions 04/20/2024 1:52 PM EST Findings indicate additional imaging studies of the right breast are required for a complete evaluation. BI-RADS CATEGORY: Overall: 0 - Incomplete: Needs Additional Imaging Evaluation RECOMMENDATION: - Additional Imaging Diagnostic Mammogram with Possible Ultrasound. Patient Lifetime Risk Score of Breast Malignancy: A risk score has not been calculated for this patient. This risk assessment is calculated using the Jackie Risk Assessment model which may underestimate the lifetime risk of breast malignancy. COMMUNICATION: Computer-aided detection (CAD) and tomosynthesis were utilized by the radiologist in the interpretation of this examination. The results and recommendations will be sent to the patient in a printed lay language version of the imaging report. Narrative 04/20/2024 1:52 PM EST EXAM: Mammography Breast Screening with Tomosynthesis REASON FOR EXAM: Screening Mammogram HISTORY: Patient is 43 y.o. Family medical history includes breast cancer in 4 relatives (maternal grandmother, mother (comments: FH: breast cancer), mother's sister, other (comments: FH: breast cancer)). Hormone history includes hormone replacement therapy (tamoxifen x 5 years); iud (x 7 years) and control (x 5 years). Surgical and procedural history include hysterectomy. Medical history includes BRCA2. COMPARISON STUDIES: Compared to: 03/26/2021 Mammography Breast Screening Tomosynthesis Bilateral at [facility] 03/30/2022 Mammography Breast Screening Tomosynthesis Bilateral at [facility] 04/14/2023 Mammography Breast Screening Tomosynthesis Bilateral at [facility] BREAST COMPOSITION: The breasts are heterogeneously dense, which may obscure small masses. FINDINGS: RIGHT: Finding 1, possible mass, 4mm in the 9 o'clock position in the upper outer quadrant with a middle depth 4-5 cm from the nipple. Referenced Shaggy slice(s) CC#35/82 and MLO#31/83 LEFT: No suspicious masses, microcalcifications or areas of architectural distortion are seen. Lila Vera APRN IMG BI PROCEDURES Final Resu lt from Last 3 Months or Most Recently Relevant to Health Maintenance Insurance [employer] MEDICAID [facility] Care Teams Laborer Drying Department Relationship Specialty Start Date End Date Sebastien Damon MD [address] [place] [phone] [facility] - General 08/23/20
--- OUTSIDE RECORDS SUMMARY | 2025-02-05 11:01 | XMS_ITS | Patient Health Record ---
[facility] Address [address] [place] [id number] Care Team Providers Care Oil Plant Operator Name Role Phone Sebastien Damon Primary Care Provider Liz Workman Unavailable [phone] Joselin Gonzalez Unavailable [phone] Allergies No Known Allergies Results Component Value [...] date:02/29/2024 11:14:17 AM Interpretation: Performing Lab: Notes/Report: sleep study Reviewed date:08/10/2024 10:39:01 AM Interpretation:CHERIE Performing Lab: Notes/Report: CHERIE H-T4 (Thyroxine) Reviewed date:02/27/2024 07:49:13 PM Interpretation:Normal Performing Lab: Notes/Report: T4 8.6 5.53-11.0 ug/dl T4 8.6 5.53-11.0 ug/dl H-Iron Reviewed date:02/27/2024 07:49:13 PM Interpretation:Normal Performing Lab: Notes/Report: FE 100 37-170 ug/dL H-CMP Reviewed date:02/27/2024 07:49:13 PM Interpretation:co2 32 Performing Lab: Notes/Report: NA 142 136-145 mmol/L K 3.7 3.5-5.1 mmoL/L CL 105 98-107 mmol/L CO2 32 22.0-30.0 mmol/L GAP 8.7 5-15 mEq/L BUN 9 7-17 mg/dl CREATT 0.90 0.52-1.04 mg/dl GFRAA 83 >60 ML/MIN EGFR 68 >60 ml/min GLU 78 74-100 mg/dl CA 9.2 8.4-10.2 mg/dl BILIT 0.5 0.2-1.3 mg/dl AST 30 14-36 U/L ALT 32 12-78 U/L TP 6.6 6.3-8.2 g/dl ALB 4.4 3.5-5.0 g/dl GLOB 2.2 1.3-3.2 g/dL AGRATIO 2.0 1.1-1.8 ALP 67 38-126 U/L H-Lipid Panel Reviewed date:02/27/2024 07:49:13 PM Interpretation:trig 176, chol 222, dldl 137.67, chlhdl 4.9 Performing Lab: Notes/Report: Patient Fasting? N TRIG 176 30-150 mg/dl CHOL 222 140-200 mg/dl DLDL 137.67 100-129 mg/dL VLDL 35 0-40 mg/dL HDL 45 40-60 mg/dl CHLHDL 4.9 1-3.5 H-CBC Reviewed date:02/27/2024 07:49:13 PM Interpretation:mpv 7.0 Performing Lab: Notes/Report: WBC 6.4 4.8-10.8 K/mm3 RBC 4.57 4.20-5.40 M/mm3 HGB 14.1 12.2-16.2 g/dL HCT 40.8 37.0-47.0 % MCV 89.4 81-99 fl MCH 31.0 27.0-31.2 pg MCHC 34.6 31.8-35.4 g/dL RDW 13.3 11.5-17.5 % PLT 268 142-424 K/mm3 MPV 7.0 7.4-10.4 fl NE% 56.2 37.0-80.0 % LY% 36.0 10-50 % MO% 5.7 1.7-9.3 % EO% 1.1 0.1-12.0 % BA% 1.0 0.1-2.0 % NE# 3.6 1.8-7.8 K/mm3 LY# 2.3 0.7-4.5 K/mm3 MO# 0.4 0.1-1.0 K/mm3 EO# 0.1 0.0-0.4 K/mm3 BA# 0.1 0-0.2 K/mm3 H-TSH Reviewed date:02/27/2024 07:49:13 PM Interpretation:Normal Performing Lab: Notes/Report: TSH 1.73 0.465-4.68 uIU/mL TSH 1.73 0.465-4.68 uIU/mL Reason For Referral Reason patient needs sleep study Diagnosis 1 Fatigue (R53.83) Referral Organization [facility] Referring Provider First Name Sebastien Referring Provider Last Name Nelson Referring Provider Speciality Family [facility] General Notes Latisha Ortiz 024 10:50:38 AM > faxed to Aysha Ramirez Referral Priority Routine Medications Medication SIG (Take, Route, Frequency, Duration) Notes Start Date End Date Status Meloxicam 7.5 MG 1 tab(s) orally once a day; Duration: 30 day(s) Active Flonase Allergy Relief 50 MCG/ACT 1 spray in each nostril Nasally Twice a day 07/13/2024 Active CPAP machine and supplies - as directed as directed Autopap, 09/25 with heated humidifier 08/10/2024 Active Immunizations Vaccine Route Administration Date Status Comme nts Varivax Unknown 02/23/2013 Administered Varivax Unknown 03/29/2013 Administered Tetanus Tdap-Adacel (over 7yrs) SC Subcutaneous 12/13/2010 Administered Tetanus Tdap-Adacel (over 7yrs) Unknown 10/31/2013 Administered Hepatitis B (20 and more) Unknown 02/02/2013 Administer ed Hepatitis B (20 and more) Unknown 03/29/2013 Administer ed Hepatitis B (20 and more) Unknown 08/28/2013 Administer ed COVID 19 Moderna Unknown 02/28/2021 Administered COVID 19 Moderna Unknown 03/28/2021 Administered Problems Problem Type SNOMED Code ICD Code Onset Dates Problem Status W/U Status Risk Notes Problem Mixed anxiety and depressive disorder (845295805) Depression with anxiety (F41.8) Active confirmed Problem Chronic fatigue syndrome (19756225) Chronic fatigue (R53.82) Active confirmed Problem Adjustment disorder (53177836) Adjustment disorder, unspecified type (F43.20) Active confirmed Problem Obstructive sleep apnea syndrome (19205298) CHERIE on CPAP (G47.33) Active confirmed Vital Signs Heart Rate 88 /min 11/17/2024 Blood pressure diastolic 70 mm Hg 11/17/2024 Height 62 in 11/17/2024 Blood pressure systolic 110 mm Hg 11/17/2024 Weight 140.4 lbs 11/17/2024 BMI 25.68 kg/m2 11/17/2024 Encounters Encounter Location Date Provider Diagnosis [facility] [address] [facility] [address] [place], [place] [id number] 02/22/2024 R Leodan Workman Fatigue R53.83 and Snoring R06.83 [facility] [address] [facility] [address] [place], [place] [id number] 07/13/2024 Joselinjeff Gonzalez Non-recurrent acute serous otitis media of both ears H65.03 [facility] [address] [facility] [address] [place], [place] [id number] 11/17/2024 Sebastien [facility] CHERIE on CPAP G47.33 ; Adjustment disorder, unspecified type F43.20 and BMI 25.0-25.9,adult Z68.25 [facility] [address] [place], [place] [id number] 02/27/2024 Sebastien [facility] Fatigue R53.83 [facility] [address] [place], [place] [id number] 08/10/2024 Sebastien [facility] [address] [place], [place] [id number] 12/05/2024 Sebastien [facility] Assessments Encounter Date Diagnosis (ICD Code) Assessment Notes Treatment Notes Treatment Clinical Notes Section Notes 02/22/2024 Fatigue (ICD-10 - R53.83) Check labs. If nonrevealing, discussed this with proceeding with sleep study. 02/22/2024 Snoring (ICD-10 - R06.83) 07/13/2024 Non-recurrent acute serous otitis media of both ears (ICD-10 - H65.03) 11/17/2024 Adjustment disorder, unspecified type (ICD-10 - F43.20) 11/17/2024 HCERIE on CPAP (ICD-10 - G47.33) CPAP complaince report reviewed, plan to change to a mask instead of nasal pillows, recheck complaince report in a month 02/27/2024 Fatigue (ICD-10 - R53.83) 11/17/2024 BMI 25.0-25.9,adult (ICD-10 - Z68.25) 07/13/2024 Other Will get OTC antihistamine of choice. Plan Of Treatment Pending Test Test Name Order Date H-VITAMIN D 02/22/2024 Insurance Providers Payer Name Payer Address Payer Phone Subscriber Number Group Number Insured Name Patient Relationship to Insured Coverage Start Date Coverage End Date [facility] [address] [address] [place] [phone] [id number] SHAILESH Albrecht Self - patient is the insured Medical (General) History 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 History ICD Code High risk for breast cancer Surgical History Surgery Date(Month/Year) LT Wrist 01/14/2018 Hysterectomy Hospitalization History Reason Date(Month/Year)
== END 2025-02-03 23:59 ==
LOC: LAB.DROPOF 02-05 10:45
PROVIDERS: PCP Family Medicine; Visit Provider Nurse Practitioner Family
DX: R35.0 Frequency of micturition (principal)
CPT/HCPCS: 87086

== ENCOUNTER 2025-02-08 07:34 | Outpatient (CLI) | payer OTHER, SELFPAY ==
--- OUTSIDE RECORDS SUMMARY | 2023-08-30 09:30 | XMS_ITS ---
Author Organization [facility] Address [address] [place] [id number] Care Team Providers Care Tool Salvage Worker Name Role Phone Sebastien Damon Primary Care Provider [phone] Katiuska Ramachandran Unavailable [phone] Allergies No Known Allergies Results Component Value [...] Duration: 5 days 08/30/2023 Active Vital Signs Weight 141 lbs 08/30/2023 Blood pressure systolic 110 mm Hg 08/30/19 24 Blood pressure diastolic 80 mm Hg 024 Heart Rate 82 /min 08/30/2023 Height 62 in 08/30/2023 BMI 25.79 kg/m2 08/30/2023 Encounters Encounter Location Date Provider Diagnosis [facility] [facility] [address] [facility] [address] [facility] [phone] 08/30/2023 Katiuska Ramachandran URI (upper respirato ry [...] Notes * SHAILESH ALBRECHTDOB:1980 (44 yo F)Acc No.[id number]:08/30/2023 Progress Notes Patient: SHAILESH FREED Provider: NUZHAT Goel :1980 A ge:43 Y S ex:Female Date:08/30/2023 Address:[address] [place], [place] [address] [address] [place], [id number] Pcp:Sebastien Damon Subjective: * Chief Complaints: * [...] Procedure Codes: 3 6416 CAPILLARY BLOOD DRAW, 73723 CBC WITH AUTO DIFF, 21668 COVID TEST IN HOUSE, Modifiers: QW , 19928 Flu Test- Nasal Swab, Modifiers: QW * Follow Up: p rn * Images: Billing Information: * Visit Code: 27667 Office Visit, Est Pt., Level 3. * Procedure Codes: 92455 CAPILLARY BLOOD DRAW. 69876 CBC WITH AUTO DIFF. 93184 COVID TEST IN HOUSE. Modifiers: QW 50251 Flu Test- Nasal Swab. Modifiers: QW * Electronic signature of Katherin fairchildorion Ramachandran APRN on 02/08/2025 at 07:37 AM EDT Sign off status: Pending * Provider: NUZHAT Goel Date: 0 08/30/2023 Generated for Salas martinez/Chapo/eTransmitting on: 1 07:37 AM EDT History and Physical Notes * [...]
--- OUTSIDE RECORDS SUMMARY | 2024-01-24 10:00 | XMS_ITS ---
Author Organization [facility] Address [address] [place] [id number] Care Team Providers Care Risk Control Product Liability Director Name Role Phone Nelson Sebastien Primary Care Provider Katiuska Ramachandran Unavailable [phone] Allergies No Known Allergies Results Component Value [...] [address] [place] [id number] 01/24/2024 Katiuska Ramachandran URI (upper respirato ry [...] Notes * SHAILESH ALBRECHTDOB:1980 (44 yo F)Acc No.[id number]:01/24/2024 Progress Notes Patient: SHAILESH FREED Provider: NUZHAT Goel :1980 A ge:43 Y S ex:Female Date:01/24/2024 Address:[address] [place] [address] [address] [facility] [place] Pcp:Sebastien Damon Subjective: * Chief Complaints: * [...] in the office * Procedure Codes: 9 6160 [place], [address] CAPILLARY BLOOD DRAW, 48252 CBC WITH AUTO DIFF * Follow Up: p rn * Images: Billing Information: * Visit Code: 86728 Office Visit, Est Pt., Level 3. * Procedure Codes: [address] [place]. [address] CAPILLARY BLOOD DRAW. 37082 CBC WITH AUTO DIFF. * Electronic signature of Katherin fairchildorion Ramachandran APRN on 02/08/2025 at 07:37 AM EDT Sign off status: Pending * Provider: NUZHAT Goel Date: Generated for Salas martinez/Chapo/eTransmrashaun on: 07:37 AM EDT History and Physical Notes [...]
--- OUTSIDE RECORDS SUMMARY | 2024-02-22 10:15 | XMS_ITS ---
Author Organization [facility] Address [address] [place] [id number] Care Team Providers Care Exercise Manager Name Role Phone Sebastien Damon Primary Care Provider Liz Workman Leodan Unavailable [phone] Allergies No Known Allergies Results Component Value [...] [address] [place] [id number] 02/22/2024 Liz Workman Fatigue R53.83 and Snoring [...] Notes * SHAILESH ALBRECHTDOB:1980 (44 yo F)Acc No.[id number]:02/22/2024 Progress Notes Patient: SHAILESH FREED Provider: Liz Workman M.D. :1980 A ge:43 Y S ex:Female Date:02/22/2024 Address:[address] [facility] [address] [place] Pcp:Sebastien Damon Subjective: * Chief Complaints: * [...] this drawn, order resent to [facility] ?Lab: H-Iron (Collection Date & Time - 02/29/2024)* see duplicate order ?Lab: H-TSH (Collection Date & Time - 02/29/2024)* see duplicate order * Follow Up: v ia phone to report test results * Images: Billing Information: * Visit Code: 31609 Office Visit, Est Pt., Level 3. * Procedure Codes: * Electronic signature of Liz Workman MD on 02/08/2025 at 07:36 AM EDT Sign off status: Pending * Provider: Liz Workman M.D. Date: 04/23/2023 Generated for Printi juan/Chapo/eTransmitting on: 07:36 AM EDT History and Physical Notes * [...]
--- OUTSIDE RECORDS SUMMARY | 2024-07-13 09:45 | XMS_ITS ---
Author Organization [place] Address 1210 [facility] [address] [place] [id number] Care Team Providers Care Seasonal Delivery Driver Name Role Phone GaltAndreySebastien Primary Care Provider [phone] Lisa Joselin Unavailable [phone] Allergies No Known Allergies REASON FOR VISIT [...] Encounter Location Date Provider Diagnosis [facility] [address] [place] [id number] 07/13/2024 Joselin Gonzalez Non-recurrent acute serous otitis [...] Notes * SHAILESH ALBRECHTDOB:1980 (44 yo F)Acc No.[id number]:07/13/2024 Progress Notes Patient: SHAILESH FREED Provider: MITCH Mike :1980 A ge:43 Y S ex:Female Date:07/13/2024 Address:[address] [place] [address] [address] [id number] Pcp:Sebastien Damon Subjective: * Chief Complaints: * [...] * Images: Billing Information: * Visit Code: 15039 Office Visit, Est Pt., Level 3. * Procedure Codes: 3074F SYST BP LT 130 MM HG. 3078F DIAST BP < 80 MM HG. * Electronic signature of MITCH Metz on 02/08/2025 at 07:37 AM EDT Sign off status: Pending * Provider: MITCH Mike Date: 0 07/13/2024 Generated for Salas martinez/Chapo/eTransmitting on: 1 07:37 [...]
--- OUTSIDE RECORDS SUMMARY | 2024-11-17 07:45 | XMS_ITS ---
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 Name Role Phone Sebastien Damon Primary Care [...] Risk Notes Problem Obstructive sleep apnea syndrome (40806507) CHERIE on CPAP (G47.33) Active confirmed Problem Adjustment disorder (44750508) Adjustment disorder, unspecified type (F43.20) Active confirmed Vital Signs Weight 140.4 lbs 11/17/2024 Blood pressure systolic 110 mm Hg 11/18/19 25 Blood pressure diastolic 70 mm Hg 025 Heart Rate 88 /min 11/17/2024 Height 62 in 11/17/2024 BMI 25.68 kg/m2 11/17/2024 Encounters Encounter Location Date Provider Diagnosis [place] [address] [place] [id number] 11/17/2024 Sebastien Damon CHERIE on CPAP G47.33 [...] Notes * SHAILESH ALBRECHTDOB:1980 (44 yo F)Acc No.[id number]:11/17/2024 Progress Notes Patient: SHAILESH FREED Provider: Katlyn Damon M.D. :1980 A ge:44 Y S ex:Female Date:11/17/2024 Address:[address] [place] [address] [address] [id number] Subjective: * Chief Complaints: * 1 . [...] unspecified type - F43.20 3 . B [place] 25.0-25.9,adult - Z68.25 Plan: * Treatment: * Procedure Codes: 1 036F TOBACCO NON-USER, 3074F SYST BP LT 130 MM HG, 3078F DIAST BP < 80 MM HG * Follow Up: v ia phone to report progress * Images: Billing Information: * Visit Code: 84250 Office Visit, Est Pt., Level 3. * Procedure Codes: 1036F TOBACCO NON-USER. 3074F SYST BP LT 130 MM HG. 3078F DIAST BP < 80 MM HG. * Electronic signature of Suki Damon MD on 02/08/2025 at 07:37 AM EDT Sign off status: Pending * Provider: Katlyn Damon M.D. Date: 0 11/17/2024 Generated for Salas martinez/Chapo/Josephitting on: 07:37 AM EDT History and Physical [...]
--- OUTSIDE RECORDS SUMMARY | 2025-02-06 11:15 | XMS_ITS ---
Author Organization [facility] Address [address] [place] [phone] Care Team Providers Care Remote Sensing Technologist Name Role Phone Sebastien Damon Primary Care Provider Liz Workman Leodan Unavailable [phone] Allergies No Known Allergies Results Component Value Reference Range Notes Urinalysis - Inhouse Reviewed date:02/06/2025 05:09:45 PM Interpretation: Performing Lab: Notes/Report: Color/Clarity dark yellow Leuk neg Nitrite neg Urobili 3.2 Protein neg pH 6.0 Blood 3+ Sp. Gr. 1.020 Ketone neg Bili neg Gluc neg REASON FOR VISIT Blood in Urine, [facility] F/U Medications Medication SIG (Take, Route, Frequency, [...] 02/06/2025 Encounters Encounter Location Date Provider Diagnosis [facility] [address] [place] [id number] 02/06/2025 Liz Workman Gross hematuria R31. 0 and UTI (lower urinary tract infection) N39.0 Assessments Encounter Date Diagnosis (ICD Code) Assessment Notes Treatment Notes Treatment Clinical Notes Section Notes 02/06/2025 Gross hematuria (ICD-10 - R31.0) 02/06/2025 UTI (lower urinary tract infection) (ICD-10 - N39.0) Finish Keflex Plan Of Treatment Treatment Notes Assessment Notes UTI (lower urinary tract infection) Stone zelaya Keflex Pending Test Test Name Order Date CT Scan : Abd & Pelvis stone protocol (w ithout contrast) 02/06/2025 Next Appt Details Follow Up: via phone to repo rt test results, Reason: Progress Notes * SHIALESH ALBRECHTDOB:1980 (44 yo F)Acc No.[id number]:02/06/2025 Progress Notes Patient: SHAILESH FREED Provider: Liz Workman M.D. :1980 A ge:44 Y S ex:Female Date:02/06/2025 Address:[address] [facility] [address] [facility] [place], [place] Pcp:Sebastien Damon Subjective: * Chief Complaints: * 1 . Blood in Urine, [facility] F/U. * HPI: U rology: She started 6 days ago with gross hematuria, urinary frequency, and mild dysuria. She went to the [facility] 3 days ago and was prescribed Keflex [...] * Procedure Codes: 8 1002 Urinalysis, no micro * Follow Up: v ia phone to report test results * Images: Billing Information: * Visit Code: 21805 Office Visit, Est Pt., Level 3. * Procedure Codes: 24810 Urinalysis, no micro. * Electronic signature of Liz Workman MD on 02/08/2025 at 07:36 AM EDT Sign off status: Pending * Provider: Liz Workman M.D. Date: Generated for Salas martinez/Chapo/Rishabh on: 07:36 AM EDT History and Physical [...]
--- NOTE | 2025-02-08 07:36 | CT_ITS ---
FINAL REPORT TECHNIQUE: Axial images through the abdomen and pelvis were performed without contrast. This study was performed with techniques to keep radiation doses as low as reasonably achievable, (ALARA). Individualized dose reduction techniques using automated exposure control or adjustment of mA and/or kV according to the patient's size were employed. CLINICAL HISTORY: GROSS HEMATURIA, recent UTI FINDINGS: Abdomen: The lung bases are clear. The liver parenchyma is homogeneous. The gallbladder is present. There are calcified granulomas of the spleen. The pancreas, adrenals and kidneys are unremarkable. Pelvis: The urinary bladder is contracted. The appendix is not visualized. There is no pelvic mass or inflammation. IMPRESSION: No evidence of renal stone or obstruction. Reviewed, Interpreted and Dictated by Felipe Ashford MD Transcribed by Huma Junior Authenticated and [facility]
--- OUTSIDE RECORDS SUMMARY | 2025-02-08 07:36 | XMS_ITS | Clinical Summary ---
Author Organization [facility] Address [address] [place] [address] Care Team Providers Care Typewriters Functional Tester Name Role Phone Sebastien Damon MD Primary Care Provider [phone] Allergies No known active allergies Medications ibuprofen 800 MG tablet Take 1 tablet (800 mg) by mouth every 6 (six) hours if needed. 06/03/2020 Active meloxicam (Mobic) 7.5 MG tablet Take 1 tablet (7.5 mg) by mouth if needed. 02/03/2022 Active ergocalciferol 1.25 MG (87171 UT) capsule Take 1 capsule (50,000 Units) [...] Upcoming Encounters Date Type Department Care Team ([facility] st Contact Info) Description 05/14/2025 10:00 AM EST Appointment [facility] [place] [address] [address] [facility] [address] [place] [address] 05/14/2025 10:30 AM EST Office Visit [facility] [address] [facility] [place] [address] Luz Goldberg, ZIPPER CUTTER [address] [facility] [address] [place] [address] Health Maintenance Due Date Last Done Comments [...] Gynecology oncology consult for risk-reducing surgery 2020 [id number] Vaccine (3 - Moderna risk series) 04/25/2021 [...] performed. The study was reviewed on a [employer] workstation. COMPARISON: 04/20/2024, 05/12/2024, MRI 10/20/2023. FINDINGS: [...] performed. The study was reviewed on a Doyenzworkstation. COMPARISON: 04/20/2024, 05/12/2024, MRI 10/20/2023. FINDINGS: Bilateral [...] 03/26/2021 Mammography Breast Screening Tomosynthesis Bilateral at [facility] 03/30/2022 Mammography Breast Screening Tomosynthesis Bilateral at [facility] 04/14/2023 Mammography Breast Screening Tomosynthesis Bilateral at [facility] BREAST COMPOSITION: The breasts are heterogeneously [...] Health Maintenance Insurance [employer] [place] Care Teams Typewriters Functional Tester Relationship Specialty Start Date End Date Sebastien Damon MD [address] [place] [id number] [facility] - General 08/23/20
--- OUTSIDE RECORDS SUMMARY | 2025-02-08 07:37 | XMS_ITS | Patient Health Record ---
[facility] Address [address] [place] [id number] Care Team Providers Care Linux Unix System Administrator Name Role Phone San JuanAndreySebastien Primary Care Provider [phone] Liz Workman Unavailable [phone] KevinJoselin blake Unavailable [phone] Allergies No Known Allergies Results Component Value [...] date:02/29/2024 11:14:17 AM Interpretation: Performing Lab: Notes/Report: Urinalysis - Inhouse Reviewed date:02/06/2025 05:09:45 PM Interpretation: Performing Lab: Notes/Report: Color/Clarity dark yellow Leuk neg Nitrite neg Urobili 3.2 Protein neg pH 6.0 Blood 3+ Sp. Gr. 1.020 Ketone neg Bili neg Gluc neg H-T4 (Thyroxine) Reviewed date:02/27/2024 07:49:13 PM Interpretation:Normal [...] 1.73 0.465-4.68 uIU/mL TSH 1.73 0.465-4.68 uIU/mL sleep study Reviewed date:08/10/2024 10:39:01 AM Interpretation:CHERIE Performing Lab: Notes/Report: CHERIE Reason For Referral Reason patient needs sleep study Diagnosis 1 Fatigue (R53.83) Referral Organization [facility] Referring Provider First Name Sebastien Referring Provider Last Name Nelson Referring Provider Speciality Family [facility] General Notes Latisha Ortiz 024 10:50:38 AM [...] Notes Problem Mixed anxiety and depressive disorder (791321277) Depression with anxiety (F41.8) Active confirmed Problem Chronic fatigue syndrome (76521633) Chronic fatigue (R53.82) Active confirmed Problem Adjustment disorder (34467265) Adjustment disorder, unspecified type (F43.20) Active confirmed Problem Obstructive sleep apnea syndrome (58805650) CHERIE on CPAP (G47.33) Active confirmed Vital Signs Heart Rate 81 /min 02/06/2025 Blood pressure diastolic 70 mm Hg 02/06/2025 Height 62 in 02/06/2025 Blood pressure systolic 120 mm Hg 02/06/2025 Weight 132.8 lbs 02/06/2025 BMI 24.29 kg/m2 02/06/2025 Encounters Encounter Location Date Provider Diagnosis [facility] [address] [place], [place] [id number] 02/22/2024 R Leodan Workman Fatigue R53.83 and Snoring R06.83 [facility] [address] [place], [place] [id number] 07/13/2024 Joeslin Gonzalez Non-recurrent acute serous otitis media of both ears H65.03 [facility] [address] [place], [place] [id number] 11/17/2024 Sebastien [place] CHEREI on CPAP G47.33 ; Adjustment disorder, unspecified type F43.20 and BMI 25.0-25.9,adult Z68.25 [facility] [address] [place], [place] [id number] 02/06/2025 R Leodan Ji Gross hematuria R31. 0 and UTI (lower urinary tract infection) N39.0 [facility] [address] [place] [id number] 02/06/2025 Sebastien [place] [facility] [address] [place] [id number] 02/27/2024 Sebastienrichi RomanSan Juan Fatigue R53.83 [facility] [address] [place] [id number] 08/10/2024 Sebastien [place] [facility] [address] [place] [id number] 12/05/2024 Sebastienrichi Damon Assessments Encounter Date Diagnosis (ICD Code) Assessment Notes Treatment Notes Treatment Clinical Notes Section Notes 02/22/2024 Fatigue (ICD-10 - R53.83) Check labs. If nonrevealing, discussed this with proceeding with sleep study. 02/22/2024 Snoring (ICD-10 - R06.83) 02/27/2024 Fatigue (ICD-10 - R53.83) 07/13/2024 Non-recurrent acute serous otitis media of both ears (ICD-10 - H65.03) 11/17/2024 Adjustment disorder, unspecified type (ICD-10 - F43.20) 11/17/2024 CHERIE on CPAP (ICD-10 - G47.33) CPAP complaince report reviewed, plan to change to a mask instead of nasal pillows, recheck complaince report in a month 02/06/2025 UTI (lower urinary tract infection) (ICD-10 - N39.0) Finish Keflex 02/06/2025 Gross hematuria (ICD-10 - R31.0) 11/17/2024 BMI 25.0-25.9,adult (ICD-10 - Z68.25) 07/13/2024 Other Will get OTC antihistamine of choice. Plan Of Treatment Pending Test Test Name Order Date CT Scan : Abd & Pelvis stone protocol (w ithout contrast) 02/06/2025 H-VITAMIN D 02/22/2024 Insurance Providers Payer Name Payer Address Payer Phone Subscriber Number Group Number Insured Name Patient Relationship to Insured Coverage Start Date Coverage End Date [employer] [facility] [address] [place], [place] [id number] SHAILESH Albrecht Self - patient is the insured Medical (General) History 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 History ICD Code High risk for breast cancer Surgical History Surgery Date(Month/Year) LT Wrist 01/14/2018 Hysterectomy Hospitalization History Reason Date(Month/Year)
--- OUTSIDE RECORDS SUMMARY | 2025-02-08 07:37 | XMS_ITS | Data Portability ---
Author Organization [place] - [facility], [facility] Address [address] [place] [address] Assessment No assessment recorded. Plan of Treatment Reminders Order Date Submit Date Provider Last Modified By Organization Details Last Modified Time Details Appointments None recorded. Lab None recorded. Referral None recorded. Procedures None recorded. Surgeries None recorded. Imaging None recorded. Medication Orders amoxicillin 875 mg tablet 2024 025 [facility] [address] [place], [address], 11:18:10 Medrol (Tobias) 4 mg tablets in a dose pack 2024 025 [facility], [address] [place], [address], 11:18:12 Patient TargetsNo targets recorded. Patient Instructions Encounter Date Encounter Id Patient Instructions Last Modified By Organization Details Last Modified Time 01/19/2025 [id number] ear infection (otitis media): care instructions Not available 01/19/2025 11:18:01 Discharge Instructions Not available 01/19/2025 11:18:01 Reason for Referral None Reported. Problems Name Problem SNOMED Code Status Onset Date Resolution Date Notes Provider Name and Address Organization Details Recorded Time Otalgia of right ear 8099400770 Active 025 Chelly arce [facility] 11:11:57 Problem Notes None recorded. Medical Equipment None Reported. Allergies No known drug allergies Medications Name Sig Start Date Stop Date Status Note LastModified by Organization Details LastModified Time nystatin 100,000 unit/mL oral suspension take 4ml BY MOUTH FOUR TIMES DAILY FOR 10 DAYS, place ONE-HALF DOSE in each side of MOUTH SWISH AND EXPECTORA TE active Not Available Not Available No t Available prednisone 10 mg tablet TAKE 1 TABLET BY MOUTH TWICE DAILY FOR 4 DAYS 01/19 completed Not Available Not Available Not Available azithromyci n 250 mg tablet TAKE 2 TABLETS BY MOUTH ON DAY 1, AND THEN TAKE 1 TABLET BY MOUTH ONCE A DAY ON DAY 2 THROUGH DAY 5 01/19 completed Not Available Not Available Not Available amoxicillin 875 mg tablet TAKE 1 TABLET BY MOUTH TWICE DAILY FOR 3 DAYS active Not Available Not Available No t Available oseltamivir 75 mg capsule TAKE 1 CAPSULE BY MOUTH TWICE DAILY FOR 5 DAYS 01/19 completed Not Available Not Available Not Available methylpredn isolone 4 mg tablets in a dose pack TAKE BY MOUTH DIRECTED ON INSIDE OF PACKAGE active Not Available Not Available No t Available fluticasone propionate 50 mcg/actuati on nasal spray,suspe nsion USE 2 SPRAY(S) IN EACH NOSTRIL ONCE DAILY active Not Available Not Available No t Available Vitals Date Recorded Heart rate Respiratory rate Oxygen saturation Oxygen saturation in Arterial blood by Pulse oximetry Body temperature Body height Body weight Systolic And Diastolic Provider Name and Address Organization Details Last Updated DateTime 5 88 /min 16 /min 97 % 97 % 98.4 [degF] 154.94 cm 37148.0 1 g 127/88 mm[Hg] [facility] 5 11:10:46 Social History Question Answer Notes LastModified by Organizat ion Details LastModified Time Tobacco Smoking Status Never Smoker [facility] 01/19/2025 11:12:02 Alcohol Use None hgainey Information n ot available 01/19/2025 Sex: Unknown Functional Status None recorded. Mental Status None recorded. Family History Nothing Reported. 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 No medical history recorded. Gynecological HistoryNo gynecological history recorded. Obstetrics History GPAL:G 0 P 0 0 0 0 Past Encounters Encounter ID Performer Location Encounter Start Date Encounter Closed Date Diagnosis/Indication Diagnosis SNOMED-CT Code Diagnosis ICD10 Code Diagnosis IMO Codes Diagnosis Note [id number] Mika Torres NP [facility] [address] [place] [address] 01/19/2025 10:49:02 01/19/2025 17:13:10 Acute right otitis media 042944282 H66.91 [id number] Health Concerns Section Related Observation LastModified by Organization Detai ls LastModified Time None Recorded Concern Status LastModified by Organization Details LastModified Time None Recorded Advance Directives Directive None Recorded Payers Insurance Date Sequence Insurance Name Policy Number Policy Miller Covered Member ID Miller Member ID Guarantor Name 01/19/2025 1 *SELF PAY* Lane Albrecht Notes Date Note Type Note Provider Name and Address Organization Details Recorded Time 5 text/htm l EaracheReported by PatientHPIFor location, patient reportsright. For modifying factors, patient reportshurts to lie on, or pull on ear. For quality, patient reportsachingandsharp. For severity, patient reportscontinuousandmild. For onset/duration, patient reports1 week(s) ago. For timing, patient reportsconstant. For context, patient reportsno sick contacts,no head trauma, andno recent air travel. For associated symptoms, patient [place] [address], [place], [address], [facility], [facility] 01/19/2025 11:18:22 OBGyn Episode No OBEpisode recorded.
--- OUTSIDE RECORDS SUMMARY | 2025-02-08 07:37 | XMS_ITS | Continuity of Care Document ---
Author Organization [facility], [facility] Address [address] [place] [address] Assessment No assessment recorded. Plan of Treatment Reminders Order Date Submit Date Provider Last Modified By Organization Details Last Modified Time Details Appointments None recorded. Lab None recorded. Referral None recorded. Procedures None recorded. Surgeries None recorded. Imaging None recorded. Medication Orders amoxicillin 875 mg tablet 2024 [facility] [address], [address] [place], [address], 11:18:10 Medrol (Tobias) 4 mg tablets in a dose pack 2024 [facility] [address], [address] [place], [address], 11:18:12 Patient TargetsNo targets recorded. Patient Instructions Encounter Date Encounter Id Patient Instructions Last Modified By Organization Details Last Modified Time 01/19/2025 [id number] ear infection (otitis media): care instructions Not available 01/19/2025 11:18:01 Discharge Instructions Not available 01/19/2025 11:18:01 Reason for Referral None Reported. Problems Name Problem SNOMED Code Status Onset Date Resolution Date Notes Provider Name and Address Organization Details Recorded Time Otalgia of right ear 3722248454 Active Chelly [facility], [facility] 11:11:57 Problem Notes None recorded. Medical Equipment [...] % 97 % 98.4 [degF] 154.94 cm 91105.0 1 g 127/88 mm[Hg] [facility] 5 11:10:46 Social History Question Answer Notes LastModified by Organizat ion Details LastModified Time Tobacco Smoking Status Never Smoker [facility] 01/19/2025 11:12:02 Alcohol Use None hgainey Information [...] ICD10 Code Diagnosis IMO Codes Diagnosis Note [id number] Mika Torres NP [facility] [address] [place] [address] 01/19/2025 10:49:02 01/19/2025 17:13:10 Acute right otitis media 050167611 H66.91 [id number] Health Concerns Section Related Observation LastModified by Organization Detai ls LastModified Time None Recorded Concern Status LastModified by Organization Details LastModified Time None Recorded Payers Encounter Date Sequence Insurance Name Policy Number Policy [...] discharge [place]. [place] [address], [place], [address], [facility], [facility] 01/19/2025 11:18:22 OBGyn Episode No OBEpisode recorded.
== END 2025-02-08 23:59 | disposition home or self-care (01) ==
LOC: RAD 07:34
PROVIDERS: PCP Family Medicine; Visit Provider Family Medicine
DX: R31.0 Gross hematuria (principal)
CPT/HCPCS: 74176

== ENCOUNTER 2025-02-27 10:33 | Outpatient (CLI) | payer OTHER, SELFPAY ==
--- NOTE | 2025-02-27 10:55 | XR_ITS ---
FINAL REPORT CLINICAL HISTORY: ACUTE PAIN OF LT HIP COMPARISON: None FINDINGS: LEFT HIP: Two views of the left hip with an AP view of the pelvis demonstrate no acute fracture or dislocation. The joint spaces appear normal. The visualized bony structures are well aligned. No soft tissue abnormality is seen. IMPRESSION: No acute bony abnormality. Reviewed, Interpreted and Dictated by Felipe Ashford MD Transcribed by Vicky Raza Authenticated and [facility]
== END 2025-02-27 23:59 | disposition home or self-care (01) ==
LOC: RAD 10:35
PROVIDERS: PCP Family Medicine; Visit Provider Nurse Practitioner Family
DX: M25.552 Pain in left hip (principal)
CPT/HCPCS: 73502

== ENCOUNTER 2025-04-03 09:01 | Outpatient (CLI) | payer OTHER, SELFPAY ==
--- OUTSIDE RECORDS SUMMARY | 2024-01-24 09:00 | XMS_ITS ---
Author Organization [facility] Address [address] [place] [id number] Care Team Providers Care Finishing Manager Name Role Phone Nelson Sebastien Primary Care Provider Katiuska Ramachandran Unavailable [phone] Allergies No Known Allergies Results Component Value Reference Range Notes CBC Fingerstick (in house) Reviewed date:01/25/2024 09:13:11 AM Interpretation: Performing Lab: Notes/Report: wbc 4.0 3.5 - 10 lym 34.9 15 - 50 mid 6.0 2 - 15 gran 59.1 35 - 80 rbc 4.34 3.5 - 5.5 hgb 13.1 11.5 - 16.5 hct 38.6 35 - 55 mcv 88.9 75 - 100 mch 30.3 25 - 35 mchc 34.1 31 - 38 plat 204 100 - 400 REASON FOR VISIT SORE THROAT AND EAR ACHE Medications Medication SIG (Take, Route, Fr equency, Duration) Notes Start Date End Date Status Meloxicam 7.5 MG 1 tab(s) orally once a day; Duration: 30 day(s) Active Vital Signs Weight 136.6 lbs 01/24/2024 Blood pressure systolic 116 mm Hg 01/24/20 24 Blood pressure diastolic 68 mm Hg 024 Heart Rate 79 /min 01/24/2024 Height 62 in 01/24/2024 BMI 24.98 kg/m2 01/24/2024 Encounters Encounter Location Date Provider Diagnosis [facility] [address] [place] [id number] 01/24/2024 Katiuska Ramachandran URI (upper respirato ry infection) J06.9 Assessments Encounter Date Diagnosis (ICD Code) Assessment Notes Treatment Notes Treatment Clinical Notes Section Notes 01/24/2024 URI (upper respiratory infection) (ICD-10 - J06.9) fluids, rest, supportive measures for fever/symptom relief, OTC decongestant and/or cough medicine of choice; restart flonase Plan Of Treatment Treatment Notes Assessment Notes URI (upper respiratory infection) fluids , rest, supportive measures for fever/symptom relief, OTC decongestant and/or cough medicine of choice; restart flonase Next Appt Details Follow Up: prn, Reason: Progress Notes * SHAILESH ALBRECHTDOB:1980 (44 yo F)Acc No.[id number]:01/24/2024 Progress Notes Patient: SHAILESH FREED Provider: NUZHAT Goel :1980 A ge:43 Y S ex:Female Date:01/24/2024 Address:[address] [place] [address] [address] [facility] [id number] Pcp:Sebastien Damon Subjective: * Chief Complaints: * 1 . SORE THROAT AND EAR ACHE. * HPI: E NT/respiratory: 43 year old female presents with c/o sore throat P t is here today for sore throat. Pt sts her it is a bit scratchy at times. c/o cough. c/o nasal congestion. c/o ear pain P t sts her ears have been hurting. Pt sts it is more her right ear than it is her left one. , throbbing. c/o post nasal drainage. c/o headache o n/off. Denies : Fever. D enies : Short of Breath. D enies : smoking. * ROS: D ERMATOLOGY: no R tyson. [...] Allergies: N .K.D.A. 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 * Examination: E NT/Respiratory: General Appearance: well nourished and hydrated NAD alert active. E yes: sclera and conjunctiva clear. E ars: auditory canals normal bilaterally tympanic membranes normal bilaterally. N ose : nares patent. O ral cavity : no erythema or exudate seen on pharynx. N elan : supple no cervical lymphadenopathy.?Heart : RRR. L ungs: CTAB A&P. Assessment: * Assessment: 1. U RI (upper respiratory infection) - J06.9 (Primary) Plan: * Treatment: * Labs: * L ab: CBC Fingerstick (in house) (Collection Date & Time - 01/24/2024) Value Reference Range w bc 4.0 3.5 - 10 * l ym 34.9 15 - 50 * m id 6.0 2 - 15 * g ran 59.1 35 - 80 * r bc 4.34 3.5 - 5.5 * h gb 13.1 11.5 - 16.5 * h ct 38.6 35 - 55 * m cv 88.9 75 - 100 * m ch 30.3 25 - 35 * m chc 34.1 31 - 38 * p lat 204 100 - 400 * Carri Amin 01/24/2024 2:29 :42 PM >RamachandranEmili gonzalezine 01/25/2024 9:13:01 AM > , results reviewed with patient while in the office * Procedure Codes: 9 5860 [place], [address] CAPILLARY BLOOD DRAW, 29434 CBC WITH AUTO DIFF * Follow Up: p rn * Images: Billing Information: * Visit Code: 23274 Office Visit, Est Pt., Level 3. * Procedure Codes: [address] [place]. [address] CAPILLARY BLOOD DRAW. 93886 CBC WITH AUTO DIFF. * Electronic signature of Katherin fairchildorion Ramachandran APRN on 04/03/2025 at 09:06 AM EST Sign off status: Pending * Provider: NUZHAT Goel Date: 1 Generated for Salas martinez/Chapo/eTransmrashaun on: 06/04/2024 09:06 AM EST History and Physical Notes * HPI (History of Present Illness) Category Sub-Category Detail Notes Category Not es ENT/respiratory sore throat Pt is here today for sore throat. Pt sts her it is a bit scratchy at times ear pain Pt sts her ears have been hurting. Pt sts it is more her right ear than it is her left one. , throbbing Short of Breath cough Fever post nasal drainage headache on/off nasal congestion smoking Examination Category Sub-Category Detail Notes Category Not es ENT/Respiratory Oral cavity : no erythema or exudate s een on pharynx Ears: auditory canals norm al bilaterally tympanic membranes normal bilaterally Neck : supple no cervical l ymphadenopathy Heart : RRR Lungs: CTAB A&P General Appearance: well nourished and h ydrated NAD alert active Nose : nares patent Eyes: sclera and conjuncti va clear
--- OUTSIDE RECORDS SUMMARY | 2024-02-22 09:15 | XMS_ITS ---
[facility] Address [address] [place] [phone] Care Team Providers Care Log Rider Name Role Phone Sebastien Damon Primary Care Provider Liz Workman Leodan Unavailable [phone] Allergies No Known Allergies Results Component Value [...] Duration: 30 day(s) Active Vital Signs Weight 137.8 lbs 02/22/2024 Blood pressure systolic 116 mm Hg 02/22/20 24 Blood pressure diastolic 78 mm Hg 024 Heart Rate 97 /min 02/22/2024 Height 62 in 02/22/2024 BMI 25.20 kg/m2 02/22/2024 Encounters Encounter Location Date Provider Diagnosis [facility] [address] [place] [id number] 02/22/2024 Liz Workman Fatigue R53.83 and Snoring [...] phone to repo rt test results, Reason: Progress Notes * SHAILESH ALBRECHTDOB:1980 (44 yo F)Acc No.[id number]:02/22/2024 Progress Notes Patient: SHAILESH FREED Provider: Liz Workman M.D. :1980 A ge:43 Y S ex:Female Date:02/22/2024 Address:[address] [facility] [address] [place] Pcp:Sebastien Damon Subjective: * Chief Complaints: * [...] * Vitals: W t:137.8, Temp:98.3, BP:116/78, HR:97, Nurse:G, Ht: 62, BMI:25.20. * Examination: G eneral [...] see duplicate order ?Lab: H-VITAMIN D* Florence Olivre 02/29/2024 2:2 0:18 PM > Pt has been contacted to have this completedIraNai 05/19/2024 11:01:25 AM > pt sts that she will go this week or next to have this drawn, order resent to [facility] ?Lab: H-Iron (Collection Date & Time - 02/29/2024)* see duplicate order ?Lab: H-TSH (Collection Date & Time - 02/29/2024)* see duplicate order * Follow Up: v ia phone to report test results * Images: Billing Information: * Visit Code: 04953 Office Visit, Est Pt., Level 3. * Procedure Codes: * Electronic signature of Liz Workman MD on 04/03/2025 at 09:05 AM EST Sign off status: Pending * Provider: Liz Workman M.D. Date: 04/23/2023 Generated for Dorisi juan/Chapo/eTransmitting on: 06/04/2024 09:05 AM EST History and Physical Notes * [...]
--- OUTSIDE RECORDS SUMMARY | 2024-07-13 08:45 | XMS_ITS ---
Author Organization [place] Address [address] [facility] [address] [place] [id number] Care Team Providers Care Senior Unix Administrator Name Role Phone ColvilleAndreySebastien Primary Care Provider Lisa Joselin Unavailable [phone] Allergies No Known Allergies REASON FOR VISIT sore throat, earache Medications Medication SIG (Take, Route, Frequency, Duration) Notes Start Date End Date Status Flonase Allergy Relief 50 MCG/ACT 1 spray in each nostril Nasally Twice a day 07/13/2024 Active Meloxicam 7.5 MG 1 tab(s) orally once a day; Duration: 30 day(s) Active Vital Signs Weight 139.4 lbs 07/13/2024 Blood pressure systolic 112 mm Hg 07/14/19 25 Blood pressure diastolic 70 mm Hg 025 Heart Rate 101 /min 07/13/2024 Height 62 in 07/13/2024 BMI 25.49 kg/m2 07/13/2024 Encounters Encounter Location Date Provider Diagnosis [facility] [address] [place] [phone] 07/13/2024 Joselin Gonzalez Non-recurrent acute serous otitis media of both ears H65.03 Assessments Encounter Date Diagnosis (ICD Code) Assessment Notes Treatment Notes Treatment Clinical Notes Section Notes 07/13/2024 Non-recurrent acute serous otitis media of both ears (ICD-10 - H65.03) 07/13/2024 Other Will get OTC antihistamine of choice. Plan Of Treatment Medication Medication Name Sig Start Date Stop Date Notes Flonase Allergy Relief 50 MCG/ACT 1 spray in each nostril Nasally Twice a day 07/13/2024 Treatment Notes Assessment Notes Other Will get OTC antihis tamine of choice. Next Appt Details Follow Up: prn, Reason: Progress Notes * SHAILESH ALBRECHTDOB:1980 (44 yo F)Acc No.[id number]:07/13/2024 Progress Notes Patient: SHAILESH FREED Provider: MITCH Mike :1980 A ge:43 Y S ex:Female Date:07/13/2024 Address:[address] [place] [address] [address] [place] [id number] Pcp:Sebastien Damon Subjective: * Chief Complaints: * 1 . Sore throat, earache. * HPI: E NT/respiratory: 43 year old female presents with c/o ear pain P t complains of bilateral ear pain that started yesterday. Pt states she does have a sore throat but thinks it may be caused from ear pain. * ROS: D ERMATOLOGY: no R tyson. n o H ivy. G ASTROENTEROLOGY: no N ausea. n o V omiting. U ROLOGY: no D ifficulty urinating. n [...] Allergies: N .K.D.A. Objective: * Vitals: W t:139.4, Temp:98.2, BP:112/70, HR:101, Nurse:ant, Ht: 62, BMI:25.49. * Examination: E NT/Respiratory: General Appearance: N AD. E ars: TM's with effusion bilaterally, no erythema, canals clear. N ose : n ormal, no lesions, nares patent. O ral cavity : n o erythema or exudate seen on pharynx. N elan : n o cervical lymphadenopathy. H eart : R RR, normal S1 S2, no murmurs. L ungs: c lear to auscultation bilaterally. Assessment: * Assessment: 1. N on-recurrent acute serous otitis media of both ears - H65.03 (Primary) Plan: * Treatment: * Procedure Codes: 3 074F SYST BP LT 130 MM HG, 3078F DIAST BP < 80 MM HG * Follow Up: p rn * Images: Billing Information: * Visit Code: 71740 Office Visit, Est Pt., Level 3. * Procedure Codes: 3074F SYST BP LT 130 MM HG. 3078F DIAST BP < 80 MM HG. * Electronic signature of MITCH Metz on 04/03/2025 at 09:05 AM EST Sign off status: Pending * Provider: MITCH Mike Date: 0 07/13/2024 Generated for Salas martinez/Chapo/eTransmitting on: 1 06/04/2024 09:05 AM EST History and Physical Notes * HPI (History of Present Illness) Category Sub-Category Detail Notes Category Not es ENT/respiratory ear pain Pt complains of bilateral ear pain that started yesterday. Pt states she does have a sore throat but thinks it may be caused from ear pain Examination Category Sub-Category Detail Notes Category Not es ENT/Respiratory Oral cavity : no erythema or exudate s een on pharynx Ears: TM's with effusion b ilaterally, no erythema, canals clear Neck : no cervical lymphade nopathy Heart : RRR, normal S1 S2, n o murmurs Lungs: clear to auscultatio n bilaterally General Appearance: NAD Nose : normal, no lesions, nares patent
--- OUTSIDE RECORDS SUMMARY | 2024-11-17 06:45 | XMS_ITS ---
Author Organization [place] Address [address] [facility] [address] [place] [id number] Care Team Providers Care Bat Carrier Name Role Phone Sebastien Damon Primary Care [...] Risk Notes Problem Obstructive sleep apnea syndrome (98231985) CHERIE on CPAP (G47.33) Active confirmed Problem Adjustment disorder (28967220) Adjustment disorder, unspecified type (F43.20) Active confirmed Vital Signs Weight 140.4 lbs 11/17/2024 Blood pressure systolic 110 mm Hg 11/18/19 25 Blood pressure diastolic 70 mm Hg 025 Heart Rate 88 /min 11/17/2024 Height 62 in 11/17/2024 BMI 25.68 kg/m2 11/17/2024 Encounters Encounter Location Date Provider Diagnosis [place] [address] [place] [phone] 11/17/2024 Sebastien Damon CHERIE on CPAP G47.33 [...] via phone to repo rt progress, Reason: Progress Notes * SHAILESH ALBRECHTDOB:1980 (44 yo F)Acc No.[id number]:11/17/2024 Progress Notes Patient: SHAILESH FREED Provider: Katlyn Damon M.D. :1980 A ge:44 Y S ex:Female Date:11/17/2024 Address:[address] [place] [address] [address] [id number] Subjective: * Chief Complaints: * 1 . [...] directed as directed , Notes to Pharmacist: Raya, 09/25 with heated humidifier, Medication List reviewed [...] unspecified type - F43.20 3 . B [place] 25.0-25.9,adult - Z68.25 Plan: * Treatment: * Procedure Codes: 1 036F TOBACCO NON-USER, 3074F SYST BP LT 130 MM HG, 3078F DIAST BP < 80 MM HG * Follow Up: v ia phone to report progress * Images: Billing Information: * Visit Code: 77882 Office Visit, Est Pt., Level 3. * Procedure Codes: 1036F TOBACCO NON-USER. 3074F SYST BP LT 130 MM HG. 3078F DIAST BP < 80 MM HG. * Electronic signature of Suki Damon MD on 04/03/2025 at 09:06 AM EST Sign off status: Pending * Provider: Katlyn Damon M.D. Date: 0 11/17/2024 Generated for Salas martinez/Chapo/Josephitting on: 06/04/2024 09:06 AM EST History and [...]
--- OUTSIDE RECORDS SUMMARY | 2025-02-06 10:15 | XMS_ITS ---
[facility] Address [address] [place] [phone] Care Team Providers Care Manager Nc Name Role Phone Sebastien Damon Primary Care Provider Liz Workman Leodan Unavailable [phone] Allergies No Known Allergies Results Component Value [...] with heated humidifier 08/10/2024 Active Vital Signs Weight 132.8 lbs 02/06/2025 Blood pressure systolic 120 mm Hg 02/07/20 25 Blood pressure diastolic 70 mm Hg 025 Heart Rate 81 /min 02/06/2025 Height 62 in 02/06/2025 BMI 24.29 kg/m2 02/06/2025 Encounters Encounter Location Date Provider Diagnosis [facility] [address] [place] [id number] 02/06/2025 Liz Workman Gross hematuria R31. 0 and UTI (lower urinary tract infection) N39.0 Assessments Encounter Date Diagnosis (ICD Code) Assessment Notes Treatment Notes Treatment Clinical Notes Section Notes 02/06/2025 Gross hematuria (ICD-10 - R31.0) 02/06/2025 UTI (lower urinary tract infection) (ICD-10 - N39.0) Finish Keflex Plan Of Treatment Treatment Notes Assessment Notes UTI (lower urinary tract infection) Stone sh Keflex Next Appt Details Follow Up: via phone to repo rt test results, Reason: Progress Notes * SHAILESH ALBRECHTDOB:1980 (44 yo F)Acc No.[id number]:02/06/2025 Progress Notes Patient: SHAILESH FREED Provider: Liz Workman M.D. :1980 A ge:44 Y S ex:Female Date:02/06/2025 Address:[address] [place] [address] [address] [id number] Pcp:Sebastien Damon Subjective: * Chief Complaints: * 1 . Blood in Urine, [facility] F/U. * HPI: U rology: She started 6 days ago with gross hematuria, urinary frequency, and mild dysuria. She went to the [facility] 3 days ago and was prescribed Keflex [...] Temp: 98.4, BP: 120/70, HR: 81, Nurse: elvin, Ht: 62, BMI:24.29. * Examination: G eneral [...] dereck neg * G monster neg * Georgie Calixto 02/06/2025 03:56:49 PM EDT > Provider reviewed results while patient in office. * Procedure Codes: 8 1002 Urinalysis, no micro, 1036F TOBACCO NON-USER, 3074F SYST BP LT 130 MM HG, 3078F DIAST BP < 80 MM HG * Follow Up: v ia phone to report test results * Images: Billing Information: * Visit Code: 34074 Office Visit, Est Pt., Level 3. * Procedure Codes: 13156 Urinalysis, no micro. 1036F TOBACCO NON-USER. 3074F SYST BP LT 130 MM HG. 3078F DIAST BP < 80 MM HG. * Electronic signature of Liz Workman MD on 04/03/2025 at 09:05 AM EST Sign off status: Pending * Provider: Liz Workman M.D. Date: 1 Generated for Salas martinez/Chapo/Marciasmitting on: 06/04/2024 09:05 AM EST History and [...]
--- OUTSIDE RECORDS SUMMARY | 2025-02-27 04:45 | XMS_ITS ---
Author Organization [facility] Address [address] [place] [id number] Care Team Providers Care Steel Sash Erector Name Role Phone Nelson Sebastien Primary Care Provider Katiuska Ramachandran Unavailable [phone] Allergies No Known Allergies Results Component Value Reference Range Notes X ray : Hip, left Reviewed date:03/01/2025 03:01:50 PM Interpretation: Performing Lab: Notes/Report: REASON FOR VISIT left leg pain Medications Medication SIG (Take, Route, Frequency, Duration) Notes Start Date End Date Status Flonase Allergy Relief 50 MCG/ACT 1 spray in each nostril Nasally Twice a day 07/13/2024 Active Meloxicam 7.5 MG 1 tab(s) orally once a day; Duration: 30 days Active CPAP machine and supplies - as directed as directed Autopap, 09/25 with heated humidifier 08/10/2024 Active Problems Problem Type SNOMED Code ICD Code Onset Dates Problem Status W/U Status Risk Notes Problem Varicose vein (45142142) Varicose vein (I86.8) Active confirmed Vital Signs Weight 134.2 lbs 02/27/2025 Blood pressure systolic 118 mm Hg 02/28/20 25 Blood pressure diastolic 68 mm Hg 025 Heart Rate 77 /min 02/27/2025 Height 62 in 02/27/2025 BMI 24.54 kg/m2 02/27/2025 Encounters Encounter Location Date Provider Diagnosis [facility] [address] [place] [id number] 02/27/2025 Katiuska Ramachandran Acute pain of left hip M25.552 and Varicose vein I86.8 Assessments Encounter Date Diagnosis (ICD Code) Assessment Notes Treatment Notes Treatment Clinical Notes Section Notes 02/27/2025 Acute pain of left hip (ICD-10 - M25.552) will try Mobid; suggested ice/heat prn; will x-ray the hip 02/27/2025 Varicose vein (ICD-10 - I86.8) noted the vein is most likely the cause of the burning discomfort Plan Of Treatment Medication Medication Name Sig Start Date Stop Date Notes Meloxicam 7.5 MG 1 tab(s) orally once a day; Duration: 30 days Treatment Notes Assessment Notes Acute pain of left hip will try Mobid; s uggested ice/heat prn; will x-ray the hip Varicose vein noted the vein is mo st likely the cause of the burning discomfort Next Appt Details Follow Up: will notify of te st results, Reason: Progress Notes * SHAILESH ALBRECHTDOB:1980 (44 yo F)Acc No.[id number]:02/27/2025 Progress Notes Patient: SHAILESH FREED Provider: NUZHAT Goel :1980 A ge:44 Y S ex:Female Date:02/27/2025 Address:[address] [facility] [address] [id number] Pcp:Sebastien Damon Subjective: * Chief Complaints: * 1 . Left leg pain. 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 44 year old female presents with c/o Leg pain P t states she has been having left hip pain for several weeks. Pt states the pain does not radiate but feels dull and achy. Pt states the pain comes and goes. Pt states she has been getting some pain in her left cox that comes out of no where and is a sharp pain. * ROS: D ERMATOLOGY: no R tyson. n o H ivy. G ASTROENTEROLOGY: no N ausea. n o V omiting. n o D iarrhea.? U ROLOGY: no D ifficulty urinating. n [...] N .K.D.A. Objective: * Vitals: W t: 134.2, Temp: 98.1, BP: 118/68, HR: 77, Nurse: JEFFY, Ht: 62, BMI:24.54. * Examination: G eneral Examination: General Appearance: N AD, appears healthy, alert, pleasant, well nourished and hydrated. H eart: R RR. L ungs: C TAB A&P. B ack: i ncreased lumbar lordosis, normal ROM of spine, tender SI joint, left; normal ROM. E xtremities: no leg edema, varicose veins on anterior lower leg. Assessment: * Assessment: 1. A cute pain of left hip - M25.552 (Primary) 2 . V aricose vein - I86.8? Plan: * Treatment: Notes: will try Mobid; suggested ice/heat prn; will x-ray the hip??2.?Varicose vein? Notes: noted the vein is most likely the cause of the burning discomfort?? * Procedure Codes: 3 074F SYST BP LT 130 MM HG, 3078F DIAST BP < 80 MM HG * Follow Up: w gopi notify of test results * Images: Billing Information: * Visit Code: 02640 Office Visit, Est Pt., Level 3. * Procedure Codes: 3074F SYST BP LT 130 MM HG. 3078F DIAST BP < 80 MM HG. * Electronic signature of Katherin fairchildorion Ramachandran APRN on 04/03/2025 at 09:05 AM EST Sign off status: Pending * Provider: NUZHAT Goel Date: 04/29/2024 Generated for Salas martinez/Chapo/Rishabh on: 06/04/2024 09:05 AM EST History and Physical Notes * HPI (History of Present Illness) Category Sub-Category Detail Notes Category Not es Leg Leg pain Pt states she feldman s been having left hip pain for several weeks. Pt states the pain does not radiate but feels dull and achy. Pt states the pain comes and goes. Pt states she has been getting some pain in her left cox that comes out of no where and is a sharp pain Examination Category Sub-Category Detail Notes Category Not es General Examination Heart: RRR Lungs: CTAB A&P Extremities: no leg edema, varico se veins on anterior lower leg General Appearance: NAD, appears healthy , alert, pleasant, well nourished and hydrated Back: increased lumbar shauna dosis, normal ROM of spine, tender SI joint, left; normal ROM
--- OUTSIDE RECORDS SUMMARY | 2025-04-03 09:05 | XMS_ITS | Clinical Summary ---
Author Organization [facility] Address [address] [place] [address] Care Team Providers Care Rotoprinter Name Role Phone Sebastien Damon MD Primary Care Provider [phone] Allergies No known active allergies Medications ibuprofen 800 MG tablet Take 1 tablet (800 mg) by mouth every 6 (six) hours if needed. 06/03/2020 Active meloxicam (Mobic) 7.5 MG tablet Take 1 tablet (7.5 mg) by mouth if needed. 02/03/2022 Active ergocalciferol 1.25 MG (51135 UT) capsule Take 1 capsule (50,000 Units) [...] [facility] [place] [address] [address] [facility] [address] [place] [address] 05/14/2025 10:30 AM EST Office Visit [facility] [address] [facility] [place] [address] Luz Goldberg, AGENCY CASHIER [address] [facility] [facility] [place] [address] [place] [address] Health Maintenance Due Date Last Done Comments [facility]-HIV Screening 1980 [facility]-Hepatitis C Screening 1980 [facility]-/Child/Adol SDOH Screenings 1980 [facility]- SDOH Screenings 1998 [facility]-Adult SDOH Screenings 1998 [facility]-Pneumococcal Vaccine: Pediatrics (0 to 5 Years) and At-Risk Patients (6 to 49 Years) (1 of 2 - PCV) 08/26/1999 [facility]-Zoster Vaccines (1 of 2) 08/26/1999 03/29/2013, 02/23/2013 Gynecology oncology consult for risk-reducing surgery 2020 SYL-TESTT-02 Vaccine (3 - Moderna risk series) 04/25/2021 [...] history exists [facility]-Obesity Intervention Completed 04/19/2024, 03/12 HPV Vaccines (No Doses Required) Completed [facility]-HIB Vaccines Aged Out No longer e [...] performed. The study was reviewed on a [employer] workstation. COMPARISON: 04/20/2024, 05/12/2024, MRI 10/20/2023. FINDINGS: [...] performed. The study was reviewed on a GetGiftedworkstation. COMPARISON: 04/20/2024, 05/12/2024, MRI 10/20/2023. FINDINGS: Bilateral [...] MD on 10/18/2024 4:21 PM Azul Costello AGENCY CASHIER IMG BI PROCEDURES Final Result * (ABNORMAL) [...] 03/26/2021 Mammography Breast Screening Tomosynthesis Bilateral at [facility] 03/30/2022 Mammography Breast Screening Tomosynthesis Bilateral at [facility] 04/14/2023 Mammography Breast Screening Tomosynthesis Bilateral at [facility] BREAST COMPOSITION: The breasts are heterogeneously dense, [...] Health Maintenance Insurance [employer]ICAID [facility] Care Teams Rotoprinter Relationship Specialty Start Date End Date Sebastien Damon MD [address] [facility] [address] [address] [facility] - General 08/23/20
--- OUTSIDE RECORDS SUMMARY | 2025-04-03 09:06 | XMS_ITS | Patient Health Record ---
[facility] Address [address] [place] [id number] Care Team Providers Care Insurance Agency Sales Manager Name Role Phone Nelson Sebastien Primary Care Provider [phone] Liz Workman Unavailable [phone] RamachandranSepideh gonzalezKatiuska Unavailable [phone] Joselin Gonzalez Unavailable [phone] Allergies No Known Allergies Results Component Value Reference Range Notes Urinalysis - Inhouse Reviewed date:02/06/2025 05:09:45 PM Interpretation: Performing Lab: Notes/Report: Color/Clarity dark yellow Leuk neg Nitrite neg Urobili 3.2 Protein neg pH 6.0 Blood 3+ Sp. Gr. 1.020 Ketone neg Bili neg Gluc neg CT Scan : Abd & Pelvis stone protocol (without contrast) Reviewed date:02/13/2025 08:16:53 AM Interpretation: Performing Lab: Notes/Report: X ray : Hip, left Reviewed date:03/01/2025 03:01:50 PM Interpretation: Performing Lab: Notes/Report: Reason For Referral No Information Medications Medication SIG (Take, Route, Frequency, Duration) [...] Unknown 02/23/2013 Administered Varivax Unknown 03/29/2013 Administered Problems Problem Type SNOMED Code ICD Code Onset Dates Problem Status W/U Status Risk Notes Problem Mixed anxiety and depressive disorder (121563893) Depression with anxiety (F41.8) Active confirmed Problem Chronic fatigue syndrome (92741082) Chronic fatigue (R53.82) Active confirmed Problem Varicose vein (35592972) Varicose vein (I86.8) Active confirmed Problem Adjustment disorder (06748648) Adjustment disorder, unspecified type (F43.20) Active confirmed Problem Obstructive sleep apnea syndrome (93757993) CHERIE on CPAP (G47.33) Active confirmed Vital Signs Heart Rate 77 /min 02/27/2025 Blood pressure diastolic 68 mm Hg 02/27/2025 Height 62 in 02/27/2025 Blood pressure systolic 118 mm Hg 02/27/2025 Weight 134.2 lbs 02/27/2025 BMI 24.54 kg/m2 02/27/2025 Encounters Encounter Location Date Provider Diagnosis [facility] [address] [place] [id number] 07/13/2024 Joselin Gonzalez Non-recurrent acute serous otitis media of both ears H65.03 [facility] [address] [place], [place] [id number] 11/17/2024 Sebastien Damon CHERIE on CPAP G47.33 ; Adjustment disorder, unspecified type F43.20 and BMI 25.0-25.9,adult Z68.25 [facility] [address] [place] [id number] 02/06/2025 R Leodan Workman Gross hematuria R31. 0 and UTI (lower urinary tract infection) N39.0 [facility] [address] [place] [id number] 02/27/2025 Katiuska Ramachandran Acute pain of left h ip M25.552 and Varicose vein I86.8 [facility] [address] [facility] [address] [place] [id number] 08/10/2024 Sebastien [place] [facility] [address] [facility] [address] [place] [id number] 12/05/2024 Sebastien [place] [facility] [address] [facility] [address] [place] [id number] 02/08/2025 Sebastien [place] Assessments Encounter Date Diagnosis (ICD Code) Assessment [...] Keflex 02/06/2025 Gross hematuria (ICD-10 - R31.0) 02/27/2025 Varicose vein (ICD-10 - I86.8) noted the vein is most likely the cause of the burning discomfort 02/27/2025 Acute pain of left hip (ICD-10 - M25.552) will try Mobid; suggested ice/heat prn; will x-ray the hip 11/17/2024 BMI 25.0-25.9,adult (ICD-10 - Z68.25) 07/13/2024 Other Will get OTC antihistamine of choice. Plan Of Treatment Pending Test Test Name Order Date H-VITAMIN D 02/22/2024 Insurance Providers Payer Name Payer Address Payer Phone Subscriber Number Group Number Insured Name Patient Relationship to Insured Coverage Start Date Coverage End Date AETNA [facility] [address] [place] [id number] SHAILESH Albrecht Self - patient is the insured Medical (General) History 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 History ICD Code High risk for breast cancer Surgical History Surgery Date(Month/Year) LT Wrist 01/14/2018 Hysterectomy Hospitalization History Reason Date(Month/Year)
[2025-04-03 09:39] LABS: Hematocrit 42.4 % (37.0-47.0); Hemoglobin 13.9 g/dL (12.2-16.2); Immature Granulocytes % 0.2 %; Mean Corpuscular HGB Conc 32.8 g/dL (31.8-35.4); Mean Corpuscular Hemoglobin 29.3 pg (27.0-31.2); Mean Corpuscular Volume 89.3 fl (81-99); Nucleated Red Blood Cells % 0 %; Platelet Count 253 K/mm3 (142-424); Red Blood Count 4.75 M/mm3 (4.20-5.40); Red Cell Distribution Width-SD 40.0 fL; White Blood Count 5.5 K/mm3 (4.8-10.8)
[2025-04-03 10:41] LABS: Albumin Level 4.1 g/dl (3.5-5.0); Chloride 106 mmol/L (98-107); Potassium 4.1 mmoL/L (3.5-5.1); Sodium 141 mmol/L (136-145)
[2025-04-03 10:43] LABS: Blood Urea Nitrogen 12 mg/dl (7-17); Creatinine,Serum 0.80 mg/dl (0.52-1.04); Estimated Glomerular Filt Rate 78 ml/min (>60); GFR (African American) 94 ML/MIN (>60)
[2025-04-03 10:44] LABS: Alanine Aminotransferase 18 U/L (12-78); Albumin/Globulin Ratio 2.0 (1.1-1.8); Alkaline Phosphatase 75 U/L (38-126); Anion Gap 8.1 mEq/L (5-15); Aspartate Amino Transferase 25 U/L (14-36); Bilirubin,Total 0.5 mg/dl (0.2-1.3); Calcium 9.6 mg/dl (8.4-10.2); Carbon Dioxide 31 mmol/L (22.0-30.0); Cholesterol 181 mg/dl (140-200); Globulin 2.1 g/dL (1.3-3.2); Glucose 82 mg/dl (74-100); HDL Cholesterol 43 mg/dl (40-60); Total Protein,Serum 6.2 g/dl (6.3-8.2); Triglycerides 152 mg/dl (30-150)
== END 2025-04-03 23:59 | disposition home or self-care (01) ==
LOC: LAB 09:02
PROVIDERS: PCP Family Medicine; Visit Provider Nurse Practitioner Obstetrics & Gynecology
DX: M85.89 Other specified disorders of bone density and structure, multiple sites (principal); E55.9 Vitamin D deficiency, unspecified; Z80.3 Family history of malignant neoplasm of breast
CPT/HCPCS: 36415; 80053; 80061; 82652; 85025

== ENCOUNTER 2025-04-09 17:17 | Outpatient (CLI) | payer OTHER, SELFPAY ==
--- OUTSIDE RECORDS SUMMARY | 2024-01-24 09:00 | XMS_ITS ---
Author Organization [facility] Address [address] [place] [id number] Care Team Providers Care Full Time Paramedic Name Role Phone Nelson Sebastien Primary Care Provider Katiuska Ramachandran Unavailable [phone] Allergies No Known Allergies Results Component Value [...] day; Duration: 30 day(s) Active Vital Signs Blood pressure systolic 116 mm Hg 01/24/20 24 Blood pressure diastolic 68 mm Hg 024 Heart Rate 79 /min 01/24/2024 Height 62 in 01/24/2024 Weight 136.6 lbs 01/24/2024 BMI 24.98 kg/m2 01/24/2024 Encounters Encounter Location Date Provider Diagnosis [facility] [address] [place] [id number] 01/24/2024 Katiuska Ramachandran URI (upper respirato ry [...] Next Appt Details Follow Up: prn, Reason: Provider Name:Sebastien espino, 04/09/2025 04:45:00 PM, [address] [facility] [address], Suite [facility] [place], [id number], Progress Notes * Maria De Jesus ALBRECHTDOB:1980 (44 yo F)Acc No.[id number]:01/24/2024 Progress Notes Patient: Maria De Jesus FREED Provider: NUZHAT Goel :1980 A ge:43 Y S ex:Female Date:01/24/2024 Address:[address] [place] [address] [facility] Pcp:Sebastien Damon Subjective: * Chief Complaints: * [...] * Carri Amin 01/24/2024 2:29 :42 PM >Katiuska Ramachandran 01/25/2024 9:13:01 AM > , results reviewed with patient while in the office * Procedure Codes: 9 4760 [place], [address] CAPILLARY BLOOD DRAW, 96888 CBC WITH AUTO DIFF * Follow Up: p rn * Images: Billing Information: * Visit Code: 53518 Office Visit, Est Pt., Level 3. * Procedure Codes: [address] [place]. [address] CAPILLARY BLOOD DRAW. 73456 CBC WITH AUTO DIFF. * Electronic signature of Katherin fairchildorion Ramachandran APRN on 04/09/2025 at 05:21 PM EST Sign off status: Pending * Provider: ANTWAN GoelP Date: 1 Generated for Salas martinez/Chapo/Rishabh on: 05:21 PM EST History and Physical Notes * HPI [...]
--- OUTSIDE RECORDS SUMMARY | 2024-02-22 09:15 | XMS_ITS ---
[facility] Address [address] [place] [id number] Care Team Providers Care Business Solutions Analyst Name Role Phone Sebastien Damon Primary Care Provider Liz Workman Leodan Unavailable [phone] Allergies No Known Allergies Results Component Value Reference Range Notes H-TSH Reviewed date:02/29/2024 11:14:49 AM Interpretation: Performing Lab: Notes/Report: H-CBC Reviewed date:02/29/2024 11:14:27 AM Interpretation: Performing Lab: Notes/Report: H-Lipid Panel Reviewed date:02/29/2024 11:14:05 AM Interpretation: Performing Lab: Notes/Report: H-CMP Reviewed date:02/29/2024 11:13:54 AM Interpretation: Performing Lab: Notes/Report: H-Iron Reviewed date:02/29/2024 11:14:38 AM Interpretation: Performing Lab: Notes/Report: H-T4 (Thyroxine) Reviewed date:02/29/2024 11:14:17 AM Interpretation: Performing Lab: Notes/Report: REASON FOR VISIT yearly check up Medications Medication SIG (Take, Route, Fr equency, Duration) Notes Start Date End Date Status Meloxicam 7.5 MG 1 tab(s) orally once a day; Duration: 30 day(s) Active Vital Signs Blood pressure systolic 116 mm Hg 02/22/20 24 Blood pressure diastolic 78 mm Hg 024 Heart Rate 97 /min 02/22/2024 Height 62 in 02/22/2024 Weight 137.8 lbs 02/22/2024 BMI 25.20 kg/m2 02/22/2024 Encounters Encounter Location Date Provider Diagnosis [facility] [address] [place] [id number] 02/22/2024 Liz Workman Fatigue R53.83 and Snoring R06.83 Assessments Encounter Date Diagnosis (ICD Code) Assessment Notes Treatment Notes Treatment Clinical Notes Section Notes 02/22/2024 Fatigue (ICD-10 - R53.83) Check labs. If nonrevealing, discussed this with proceeding with sleep study. 02/22/2024 Snoring (ICD-10 - R06.83) Plan Of Treatment Treatment Notes Assessment Notes Fatigue Check labs. If nonre vealing, discussed this with proceeding with sleep study. Pending Test Test Name Order Date H-VITAMIN D 02/22/2024 Next Appt Details Follow Up: via phone to repo rt test results, Reason: Provider Name:Sebastien Bello , 04/09/2025 04:45:00 PM, [address] [facility] [address] [facility], [address], [place], [id number], Progress Notes * Mikey ALBRECHTfaustoDOB:1980 (44 yo F)Acc No.[id number]:02/22/2024 Progress Notes Patient: Maria De Jesus FREED Provider: Liz Workman M.D. :1980 A ge:43 Y S ex:Female Date:02/22/2024 Address:[address] [place], [place] [address] [place] Pcp:Sebastien Damon Subjective: * Chief Complaints: * 1 . Yearly check up. * HPI: H PI: Patient is here today for a yearly check up. Pt would like to get labs today to check her thyroid levels. Pt sts that she stay tired a lot and just wants to make sure everything is good. Pt sts that she wants to start taking better care of herself. She states her complains of her snoring but he is not aware of apnea. * ROS: D ERMATOLOGY: no R tyson. [...] Allergies: N .K.D.A. Objective: * Vitals: W t:137.8, Temp:98.3, BP:116/78, HR:97, Nurse:MYESHA, Ht: 62, BMI:25.20. * Examination: G eneral Examination: General Appearance: N AD. N elan: s upple, no lymphadenopathy, no thyromegaly. H eart: R SR. L ungs: c lear to auscultation. Assessment: * Assessment: 1. F marybeth - R53.83 (Primary) 2 . S [place] - R06.83 Plan: * Treatment: * Labs: * L ab: H-Lipid Panel (Collection Date & Time - 02/29/2024) ?Lab: H-T4 (Thyroxine) (Collection Date & Time - 02/29/2024)* see duplicate order ?Lab: H-CMP (Collection Date & Time - 02/29/2024)* see duplicate order ?Lab: H-CBC (Collection Date & Time - 02/29/2024)* see duplicate order ?Lab: H-VITAMIN D* Florence Oliver 02/29/2024 2:2 0:18 PM > Pt has been contacted to have this completedGoelsaNai 05/19/2024 11:01:25 AM > pt sts that she will go this week or next to have this drawn, order resent to [facility] ?Lab: H-Iron (Collection Date & Time - 02/29/2024)* see duplicate order ?Lab: H-TSH (Collection Date & Time - 02/29/2024)* see duplicate order * Follow Up: v ia phone to report test results * Images: Billing Information: * Visit Code: 60613 Office Visit, Est Pt., Level 3. * Procedure Codes: * Electronic signature of Liz Workman MD on 04/09/2025 at 05:20 PM EST Sign off status: Pending * Provider: Liz Workman M.D. Date: 04/23/2023 Generated for Salas martinez/Chapo/Flaviaransmitting on: 05:20 PM EST History and Physical Notes * HPI (History of Present Illness) Category Sub-Category Detail Notes Category Not es HPI Patient is here toda y for a yearly check up. Pt would like to get labs today to check her thyroid levels. Pt sts that she stay tired a lot and just wants to make sure everything is good. Pt sts that she wants to start taking better care of herself She states her complains of her snoring but he is not aware of apnea. Examination Category Sub-Category Detail Notes Category Not es General Examination Heart: RSR Lungs: clear to auscultatio n General Appearance: NAD Neck: supple, no lymphaden opathy, no thyromegaly
--- OUTSIDE RECORDS SUMMARY | 2024-07-13 08:45 | XMS_ITS ---
Author Organization [place] Address 1210 [facility] [address] [place] [id number] Care Team Providers Care Political Science Chair Name Role Phone LexingtonAndreySebastien Primary Care Provider [phone] Lisa Joselin Unavailable [phone] Allergies No Known Allergies REASON FOR VISIT sore throat, earache Medications Medication SIG (Take, Route, Frequency, Duration) Notes Start Date End Date Status Flonase Allergy Relief 50 MCG/ACT 1 spray in each nostril Nasally Twice a day 07/13/2024 Active Meloxicam 7.5 MG 1 tab(s) orally once a day; Duration: 30 day(s) Active Vital Signs Blood pressure systolic 112 mm Hg 07/14/19 25 Blood pressure diastolic 70 mm Hg 025 Heart Rate 101 /min 07/13/2024 Height 62 in 07/13/2024 Weight 139.4 lbs 07/13/2024 BMI 25.49 kg/m2 07/13/2024 Encounters Encounter Location Date Provider Diagnosis [facility] [address] [place] [phone] 07/13/2024 Joselin Gonzalez Non-recurrent acute serous otitis [...] Details Follow Up: prn, Reason: Provider Name:Sebastien Bello ry, 04/09/2025 04:45:00 PM, [address], [address], [place], [place], [phone], Progress Notes * Maria De Jesus ALBRECHTDOB:1980 (44 yo F)Acc No.[id number]:07/13/2024 Progress Notes Patient: Maria De Jesus FREED Provider: MITCH Mike :1980 A ge:43 Y S ex:Female Date:07/13/2024 [address] [facility] [address] [place], [id number] Pcp:Sebastien Damon Subjective: * Chief Complaints: * [...] * Vitals: W t:139.4, Temp:98.2, BP:112/70, HR:101, Nurse:kk, Ht: 62, BMI:25.49. * Examination: E NT/Respiratory: [...] * Images: Billing Information: * Visit Code: 09739 Office Visit, Est Pt., Level 3. * Procedure Codes: 3074F SYST BP LT 130 MM HG. 3078F DIAST BP < 80 MM HG. * Electronic signature of MITCH Metz on 04/09/2025 at 05:21 PM EST Sign off status: Pending * Provider: MITCH Mike Date: 0 07/13/2024 Generated for Salas martinez/Chapo/Rishabh on: 1 05:21 PM EST History and Physical Notes [...]
--- OUTSIDE RECORDS SUMMARY | 2024-11-17 06:45 | XMS_ITS ---
Author Organization [place] Address [address] [facility] [address] [place] [phone] Care Team Providers Care Windchill Administrator Name Role Phone Sebastien Damon Primary Care Provider Allergies No Known Allergies REASON FOR VISIT f/u for CPAP Medications Medication SIG (Take, Route, Frequency, Duration) Notes Start Date End Date Status Meloxicam 7.5 MG 1 tab(s) orally once a day; Duration: 30 day(s) Active Flonase Allergy Relief 50 MCG/ACT 1 spray in each nostril Nasally Twice a day 07/13/2024 Active CPAP machine and supplies - as directed as directed Autopap, 09/25 with heated humidifier 08/10/2024 Active Problems Problem Type SNOMED Code ICD Code Onset Dates Problem Status W/U Status Risk Notes Problem Obstructive sleep apnea syndrome (05629813) CHERIE on CPAP (G47.33) Active confirmed Problem Adjustment disorder (31780185) Adjustment disorder, unspecified type (F43.20) Active confirmed Vital Signs Blood pressure systolic 110 mm Hg 11/18/19 25 Blood pressure diastolic 70 mm Hg 025 Heart Rate 88 /min 11/17/2024 Height 62 in 11/17/2024 Weight 140.4 lbs 11/17/2024 BMI 25.68 kg/m2 11/17/2024 Encounters Encounter Location Date Provider Diagnosis [place] [address] [place] [phone] 11/17/2024 Sebastien Damon CHERIE on CPAP G47.33 ; Adjustment disorder, unspecified type F43.20 and BMI 25.0-25.9,adult Z68.25 Assessments Encounter Date Diagnosis (ICD Code) Assessment Notes Treatment Notes Treatment Clinical Notes Section Notes 11/17/2024 CHERIE on CPAP (ICD-10 - G47.33) CPAP complaince report reviewed, plan to change to a mask instead of nasal pillows, recheck complaince report in a month 11/17/2024 Adjustment disorder, unspecified type (ICD-10 - F43.20) 11/17/2024 BMI 25.0-25.9,adult (ICD-10 - Z68.25) Plan Of Treatment Treatment Notes Assessment Notes CHERIE on CPAP CPAP complaince repo rt reviewed, plan to change to a mask instead of nasal pillows, recheck complaince report in a month Next Appt Details Follow Up: via phone to repo rt progress, Reason: Provider Name:Sebastien Bello , 04/09/2025 04:45:00 PM, 1210 [facility] 36 [facility], [address] , [place], [place], [id number], Progress Notes * Maria De Jesus ALBRECHTDOB:1980 (44 yo F)Acc No.[id number]:11/17/2024 Progress Notes Patient: Maria De Jesus FREED Provider: Katlyn Damon M.D. :1980 A ge:44 Y S ex:Female Date:11/17/2024 Address:[address] [place] [address] [id number] Subjective: * Chief Complaints: * 1 . f/u for CPAP. * HPI: H PI: 44 year old female presents with c/o Here for follow up on:?CPAP compliance. Pt states she is having and issue with CPAP coming off her face when she is sleeping so she has only been using is for around 4 hours at night. * ROS: D ERMATOLOGY: no R tyson. n o H ivy. G ASTROENTEROLOGY: no N ausea. n o V omiting. P SYCHOLOGY: High stress level a t work. U ROLOGY: no D ifficulty urinating. n o B lood in urine. * 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: H igh risk for breast cancer. * Surgical History: L T Wrist 01/14/2018, Hysterectomy . * Hospitalization/Major Diagno stic Procedure: D enies Past Hospitalization. * Family History: F ather: alive. M other: alive. 1 sister(s) . 2 daughter(s) . . * Social History: C URRENT TOBACCO USE: No . C affeine: yes, frequency:. Marital Status: . Past smoking status: no. * Medications: T aking Meloxicam 7.5 MG Tablet 1 tab(s) orally once a day , Taking Flonase Allergy Relief 50 MCG/ACT Suspension 1 spray in each nostril Nasally Twice a day , Taking CPAP machine and supplies - - as directed as directed , Notes to Pharmacist: Autorenata, 09/25 with heated humidifier, Medication List reviewed and reconciled with the patient * Allergies: N .K.D.A. Objective: * Vitals: W t: 140.4, Temp: 98.0, BP: 110/70, HR: 88, Nurse: ant, Ht: 62, BMI:25.68. * Examination: P sychology: General Appearance: N AD. G rooming : a dequate.?Eye contact : n yary. M ood : valentino loya. Assessment: * Assessment: 1. O SA on CPAP - G47.33 (Primary) 2 . A djustment disorder, unspecified type - F43.20 3 . B [place] 25.0-25.9,adult - Z68.25 Plan: * Treatment: * Procedure Codes: 1 036F TOBACCO NON-USER, 3074F SYST BP LT 130 MM HG, 3078F DIAST BP < 80 MM HG * Follow Up: v ia phone to report progress * Images: Billing Information: * Visit Code: 33916 Office Visit, Est Pt., Level 3. * Procedure Codes: 1036F TOBACCO NON-USER. 3074F SYST BP LT 130 MM HG. 3078F DIAST BP < 80 MM HG. * Electronic signature of Suki Damon MD on 04/09/2025 at 05:21 PM EST Sign off status: Pending * Provider: Katlyn Damon M.D. Date: 0 11/17/2024 Generated for Salas martinez/Chapo/Marciasmitting on: 1 05:21 PM EST History and Physical Notes * HPI (History of Present Illness) Category Sub-Category Detail Notes Category Not es HPI Here for follow up on: CPAP comp liance. Pt states she is having and issue with CPAP coming off her face when she is sleeping so she has only been using is for around 4 hours at night Examination Category Sub-Category Detail Notes Category Not es Psychology General Appearance: NAD Grooming : adequate Eye contact : normal Mood : pleasant
--- OUTSIDE RECORDS SUMMARY | 2025-02-06 10:15 | XMS_ITS ---
[facility] Address [address] [place] [id number] Care Team Providers Care Tire Design Engineer Name Role Phone Sebastien Damon Primary Care Provider [phone] Liz Workman Leodan Unavailable [phone] Allergies No Known Allergies Results Component Value Reference Range Notes Urinalysis - Inhouse Reviewed date:02/06/2025 05:09:45 PM Interpretation: Performing Lab: Notes/Report: Color/Clarity dark yellow Leuk neg Nitrite neg Urobili 3.2 Protein neg pH 6.0 Blood 3+ Sp. Gr. 1.020 Ketone neg Bili neg Gluc neg CT Scan : Abd & Pelvis stone protocol (without contrast) Reviewed date:02/13/2025 08:16:53 AM Interpretation: Performing Lab: Notes/Report: REASON FOR VISIT Blood in Urine, UTC F/U Medications Medication SIG (Take, Route, Frequency, Duration) Notes Start Date End Date Status Meloxicam 7.5 MG 1 tab(s) orally once a day; Duration: 30 day(s) Active Flonase Allergy Relief 50 MCG/ACT 1 spray in each nostril Nasally Twice a day 07/13/2024 Active CPAP machine and supplies - as directed as directed Autopap, 09/25 with heated humidifier 08/10/2024 Active Vital Signs Blood pressure systolic 120 mm Hg 02/07/20 25 Blood pressure diastolic 70 mm Hg 025 Heart Rate 81 /min 02/06/2025 Height 62 in 02/06/2025 Weight 132.8 lbs 02/06/2025 BMI 24.29 kg/m2 02/06/2025 Encounters Encounter Location Date Provider Diagnosis [facility] [place] [address] [facility] [address] [facility] [address] [place] [id number] 02/06/2025 Liz Workman Gross hematuria R31. 0 and UTI (lower urinary tract infection) N39.0 Assessments Encounter Date Diagnosis (ICD Code) Assessment Notes Treatment Notes Treatment Clinical Notes Section Notes 02/06/2025 Gross hematuria (ICD-10 - R31.0) 02/06/2025 UTI (lower urinary tract infection) (ICD-10 - N39.0) Finish Keflex Plan Of Treatment Treatment Notes Assessment Notes UTI (lower urinary tract infection) Fini sh Keflex Next Appt Details Follow Up: via phone to repo rt test results, Reason: Provider Name:Sebastien Bello ry, 04/09/2025 04:45:00 PM, [address] [facility] [address] [facility], [address], [place], [phone], Progress Notes * Maria De Jesus ALBRECHTDOB:1980 (44 yo F)Acc No.[id number]:02/06/2025 Progress Notes Patient: Maria De Jesus FREED Provider: Liz Workman M.D. :1980 A ge:44 Y S ex:Female Date:02/06/2025 Address:[address] [place] [address] [address] [id number] Pcp:Sebastien Damon Subjective: * Chief Complaints: * 1 . Blood in Urine, [facility] F/U. * HPI: U rology: She started 6 days ago with gross hematuria, urinary frequency, and mild dysuria. She went to the [facility] 3 days ago and was prescribed Keflex for UTI. UA at that time showed trace leukocytes and 4+ blood. Today she only complains of mild discomfort. Still has some urinary frequency but is most concerned about ongoing gross hematuria. No history of kidney stones. 44 year old female presents with c/o frequent urination s mall amount at times . Denies : burning sensation. D enies : flank pain. D enies : Urine Odor. D enies : Vaginal Itching. D enies : Pressure. * ROS: D ERMATOLOGY: no R tyson. n o H ivy. G ASTROENTEROLOGY: no N ausea. n o V omiting. n o D iarrhea.? P SYCHOLOGY: no D epression. n o A nxiety. * 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: H igh risk for breast cancer. * Surgical History: L T Wrist 01/14/2018, Hysterectomy . * Family History: F ather: alive. M [...] N .K.D.A. Objective: * Vitals: W t: 132.8, Temp: 98.4, BP: 120/70, HR: 81, Nurse: pe, Ht: 62, BMI:24.29. * Examination: G eneral Examination: General Appearance: N AD. A bdomen: s oft, nontender, no CVA tenderness. Assessment: * Assessment: 1. G ross hematuria - R31.0 (Primary) 2 . U TI (lower urinary tract infection) - N39.0 Plan: * Treatment: 2.?UTI (lower urinary tract infection)? Notes: Finish Keflex?? * Labs: * L ab: Urinalysis - Inhouse (Collection Date & Time - 02/06/2025) Value Reference Range C olor/Clarity dark yellow * L euk neg * N itrite neg * U robili 3.2 * P rotein neg * p H 6.0 * B lood 3+ * S p. Gr. 1.020 * K etone neg * B dereck neg * G monster neg * EarlywinGeorgie bear 02/06/2025 03:56:49 PM EDT > Provider reviewed results while patient in office. * Procedure Codes: 8 1002 Urinalysis, no micro, 1036F TOBACCO NON-USER, 3074F SYST BP LT 130 MM HG, 3078F DIAST BP < 80 MM HG * Follow Up: v ia phone to report test results * Images: Billing Information: * Visit Code: 09730 Office Visit, Est Pt., Level 3. * Procedure Codes: 56173 Urinalysis, no micro. 1036F TOBACCO NON-USER. 3074F SYST BP LT 130 MM HG. 3078F DIAST BP < 80 MM HG. * Electronic signature of Liz Workman MD on 04/09/2025 at 05:20 PM EST Sign off status: Pending * Provider: Liz Workman M.D. Date: Generated for Salas martinez/Chapo/Josephitting on: 05:20 PM EST History and Physical Notes * HPI (History of Present Illness) Category Sub-Category Detail Notes Category Not es Urology frequent urination small amount at times burning sensation flank pain Urine Odor Vaginal Itching Pressure Examination Category Sub-Category Detail Notes Category Not es General Examination Abdomen: soft, nontender, no C VA tenderness General Appearance: NAD
--- OUTSIDE RECORDS SUMMARY | 2025-02-27 04:45 | XMS_ITS ---
Author Organization [facility] Address [address] [place] [id number] Care Team Providers Care Tube Rebuilder Name Role Phone Nelson Sebastien Primary Care Provider Katiuska Ramachandran Unavailable [phone] Allergies No Known Allergies Results Component Value [...] W/U Status Risk Notes Problem Varicose vein (01830808) Varicose vein (I86.8) Active confirmed Vital Signs Blood pressure systolic 118 mm Hg 02/28/20 25 Blood pressure diastolic 68 mm Hg 025 Heart Rate 77 /min 02/27/2025 Height 62 in 02/27/2025 Weight 134.2 lbs 02/27/2025 BMI 24.54 kg/m2 02/27/2025 Encounters Encounter Location Date Provider Diagnosis [place] [address] [place] [id number] 02/27/2025 Katiuska Ramachandran Acute pain of left [...] will notify of te st results, Reason: Provider Name:Sebastien Bello , 04/09/2025 04:45:00 PM, [address] [facility] [address] [facility], [address], [place], [phone], Progress Notes * BRAVOMaria De JesusDOB:1980 (44 yo F)Acc No.[id number]:02/27/2025 Progress Notes Patient: Maria De Jesus FREED Provider: NUZHAT Goel :1980 A ge:44 Y S ex:Female Date:02/27/2025 Address:[address] [place], [place] [address]John [facility] Pcp:Sebastien Damon Subjective: * Chief Complaints: * [...] 80 MM HG * Follow Up: w ill notify of test results * Images: Billing Information: * Visit Code: 30909 Office Visit, Est Pt., Level 3. * Procedure Codes: 3074F SYST BP LT 130 MM HG. 3078F DIAST BP < 80 MM HG. * Electronic signature of Katherin fairchildorion Ramachandran APRN on 04/09/2025 at 05:20 PM EST Sign off status: Pending * Provider: NUZHAT Goel Date: 04/29/2024 Generated for Salas martinez/Chapo/Rishabh on: 05:20 PM EST History and Physical [...]
--- OUTSIDE RECORDS SUMMARY | 2025-04-09 17:20 | XMS_ITS | Clinical Summary ---
Author Organization [facility] Address [address] [place] [address] Care Team Providers Care Rubber Down Name Role Phone Sebastien Damon MD Primary Care Provider [phone] Allergies No known active allergies Medications ibuprofen 800 MG tablet Take 1 tablet (800 mg) by mouth every 6 (six) hours if needed. 06/03/2020 Active meloxicam (Mobic) 7.5 MG tablet Take 1 tablet (7.5 mg) by mouth if needed. 02/03/2022 Active ergocalciferol 1.25 MG (09074 UT) capsule Take 1 capsule (50,000 Units) [...] Upcoming Encounters Date Type Department Care Team ([facility] st Contact Info) Description 05/14/2025 10:00 AM EST Appointment [facility] [place] [address] N[address] [place] [facility] [address] [place] [address] 05/14/2025 10:30 AM EST Office Visit [facility] [address] [facility], [address] [place] [address] Luz Goldberg, INFORMATION ASSURANCE OFFICER [address] [facility] [address] [place] [address] Health Maintenance Due Date Last Done Comments [facility]-HIV Screening 1980 [facility]-Hepatitis C Screening 1980 [facility]-/Child/Adol SDOH Screenings 1980 [facility]- SDOH Screenings 1998 [facility]-Adult SDOH Screenings 1998 [facility]-Pneumococcal Vaccine: Pediatrics (0 to 5 Years) and At-Risk Patients (6 to 49 Years) (1 of 2 - PCV) 08/26/1999 [facility]-Zoster Vaccines (1 of 2) 08/26/1999 03/29/2013, 02/23/2013 Gynecology oncology consult for risk-reducing surgery 2020 [id number] Vaccine (3 - Moderna risk series) 04/25/2021 [...] performed. The study was reviewed on a [employer]™ Interactive workstation. COMPARISON: 04/20/2024, 05/12/2024, MRI 10/20/2023. FINDINGS: [...] performed. The study was reviewed on a [employer]™ Interactiveworkstation. COMPARISON: 04/20/2024, 05/12/2024, MRI 10/20/2023. FINDINGS: Bilateral [...] MD on 10/18/2024 4:21 PM Azul Costello INFORMATION ASSURANCE OFFICER IMG BI PROCEDURES Final Result * (ABNORMAL) [...] 03/26/2021 Mammography Breast Screening Tomosynthesis Bilateral at [facility] 03/30/2022 Mammography Breast Screening Tomosynthesis Bilateral at [facility] 04/14/2023 Mammography Breast Screening Tomosynthesis Bilateral at [facility] BREAST COMPOSITION: The breasts are heterogeneously [...] Health Maintenance Insurance A[employer] MEDICAID [facility] Care Teams Rubber Down Relationship Specialty [place] [id number] [facility] - General 08/23/20
--- OUTSIDE RECORDS SUMMARY | 2025-04-09 17:21 | XMS_ITS | Patient Health Record ---
Author [facility] Address [address] [place] [id number] Care Team Providers Care Digital Advisor Name Role Phone Nelson Sebastien Primary Care Provider [phone] Liz Workman Unavailable [phone] RamachandranSepideh gonzalezKatiuska Unavailable [phone] Joselin Gonzalez Unavailable [phone] Allergies No Known Allergies Results Component Value [...] Duration) Notes Start Date End Date Status CPAP machine and supplies - as directed as directed Autopap, 09/25 with heated humidifier 08/10/2024 Active Flonase Allergy Relief 50 MCG/ACT 1 spray in each nostril Nasally Twice a day 07/13/2024 Active Meloxicam 7.5 MG 1 tab(s) orally once a day; Duration: 30 days Active Immunizations Vaccine Route Administration Date Status [...] Notes Problem Mixed anxiety and depressive disorder (586651702) Depression with anxiety (F41.8) Active confirmed Problem Chronic fatigue syndrome (83120499) Chronic fatigue (R53.82) Active confirmed Problem Varicose vein (08720158) Varicose vein (I86.8) Active confirmed Problem Lumbar radiculopathy (173170469) Left lumbar radiculopathy (M54.16) Active confirmed Problem Adjustment disorder (07047730) Adjustment disorder, unspecified type (F43.20) Active confirmed Problem Obstructive sleep apnea syndrome (41069967) CHERIE on CPAP (G47.33) Active confirmed Vital Signs Heart Rate 77 /min 04/09/2025 Blood pressure diastolic 70 mm Hg 04/09/2025 Height 62 in 04/09/2025 Blood pressure systolic 114 mm Hg 04/09/2025 Weight 133.8 lbs 04/09/2025 BMI 24.47 kg/m2 04/09/2025 Encounters Encounter Location Date Provider Diagnosis [facility] [address] [facility] [address] [facility] [address] [place], [place] [id number] 07/13/2024 Joselin Gonzalez Non-recurrent acute serous otitis media of both ears H65.03 [facility] [address] [facility] [address] [facility] [address] [place], [place] [id number] 11/17/2024 Sebastien Damon CHERIE on CPAP G47.33 ; Adjustment disorder, unspecified type F43.20 and BMI 25.0-25.9,adult Z68.25 [facility] [address] [facility] [address] [facility] [address] [place], [place] [id number] 02/06/2025 Liz Workman Gross hematuria R31. 0 and UTI (lower urinary tract infection) N39.0 [facility] [address] [place], [place] [id number] 02/27/2025 Katiuska Ramachandran Acute pain of left h ip M25.552 and Varicose vein I86.8 [facility] [address] [place], [place] [id number] 04/09/2025 Sebastien [place] Left lumbar radiculopathy M54.16 [facility] [address] [place], [place] [id number] 08/10/2024 Sebastien [place] [facility] [address] [place], [place] [id number] 12/05/2024 Sebastien [place] [facility] [address] [facility] [address] [place], [place] [id number] 02/08/2025 Sebastien [place] Assessments Encounter Date Diagnosis (ICD Code) Assessment [...] suggested ice/heat prn; will x-ray the hip 04/09/2025 Left lumbar radiculopathy (ICD-10 - M54.16) 11/17/2024 BMI 25.0-25.9,adult (ICD-10 - Z68.25) 07/13/2024 Other Will get OTC antihistamine of choice. Plan Of Treatment Pending Test Test Name Order Date X ray : Spine, lumbosacral 04/09/2025 H-VITAMIN D 02/22/2024 Next Appt Details Provider Name:Sebastien Idalmis Bello ry, 04/09/2025 04:45:00 PM, [address], [place], [place], [id number], Insurance Providers Payer Name Payer Address Payer Phone Subscriber Number Group Number Insured Name Patient Relationship to Insured Coverage Start Date Coverage End Date AETNA [facility] [address] [place], [place] [id number] Maria De Jesus Albrecht Self - patient is the insured Medical (General) History 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 History ICD Code High risk for breast cancer right foot, multiple fractures 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
--- OUTSIDE RECORDS SUMMARY | 2025-04-09 17:21 | XMS_ITS | Continuity of Care Document ---
[facility] Organization [facility], [facility] Address [address] [place] [address] Assessment No assessment recorded. Plan of Treatment Reminders Order Date Submit Date Provider Last Modified By Organization Details Last Modified Time Details Appointments None recorded. Lab None recorded. Referral None recorded. Procedures None recorded. Surgeries None recorded. Imaging None recorded. Medication Orders amoxicillin 875 mg tablet 2024 [facility] [address] [place], [address], 11:18:10 Medrol (Tobias) 4 mg tablets in a dose pack 2024 [facility] [address], [address] [place], [address], 11:18:12 Patient TargetsNo targets recorded. Patient Instructions Encounter Date Encounter Id Patient Instructions Last Modified By Organization Details Last Modified Time 01/19/2025 [id number] ear infection (otitis media): care instructions Not available 01/19/2025 11:18:01 Discharge Instructions Not available 01/19/2025 11:18:01 Reason for Referral None Reported. Problems Name Problem SNOMED Code Status Onset Date Resolution Date Notes Provider Name and Address Organization Details Recorded Time Otalgia of right ear 6284008225 Active Chelly Terry [facility], [facility] 11:11:57 Problem Notes None recorded. [...] Recorded Heart rate Respiratory rate Oxygen saturation Body temperature Body height Body weight Systolic And Diastolic Provider Name and Address Organization Details Last Updated DateTime 5 88 /min 16 /min 97 % 98.4 [degF] 154.94 cm 02657.0 1 g 127/88 mm[Hg] Chellypopeye Terry [facility] 5 11:10:46 Social History Question Answer Notes LastModified by Organizat ion Details LastModified Time Tobacco Smoking Status Never Smoker [facility] 01/19/2025 11:12:02 Alcohol Use None hgainey [...] ICD10 Code Diagnosis IMO Codes Diagnosis Note [id number] Mika Torres NP [facility] [address] [place], [place] [address] 01/19/2025 10:49:02 01/19/2025 17:13:10 Acute right otitis media 011048861 H66.91 [id number] Health Concerns Section Related Observation LastModified by [...] [place] [address], [place], [address], [facility] - [facility], [facility] 01/19/2025 11:18:22 OBGyn Episode No OBEpisode recorded.
--- OUTSIDE RECORDS SUMMARY | 2025-04-09 17:21 | XMS_ITS | Data Portability ---
Author Organization [place] [facility], [facility], [facility] Address [address] [facility] [address] [place] [address] Assessment No assessment recorded. Plan of Treatment Reminders Order Date Submit Date Provider Last Modified By Organization Details Last Modified Time Details Appointments None recorded. Lab None recorded. Referral None recorded. Procedures None recorded. Surgeries None recorded. Imaging None recorded. Medication Orders amoxicillin 875 mg tablet 2024 025 [facility] [address] [address] [place], [address], 11:18:10 Medrol (Tobias) 4 mg tablets in a dose pack 2024 025 [facility] [address], [address] [place], [address], 11:18:12 Patient TargetsNo targets recorded. Patient Instructions Encounter Date Encounter Id Patient Instructions Last Modified By Organization Details Last Modified Time 01/19/2025 [id number] ear infection (otitis media): care instructions Not available 01/19/2025 11:18:01 Discharge Instructions Not available 01/19/2025 11:18:01 Reason for Referral None Reported. Problems Name Problem SNOMED Code Status Onset Date Resolution Date Notes Provider Name and Address Organization Details Recorded Time Otalgia of right ear 3817101584 Active 025 Chelly arce [facility] [employer] 11:11:57 Problem Notes None recorded. Medical Equipment [...] /min 97 % 98.4 [degF] 154.94 cm 76812.0 1 g 127/88 mm[Hg] Chellypopeye Terry [facility] 5 11:10:46 Social History Question Answer Notes LastModified by Organizat ion Details LastModified Time Tobacco Smoking Status Never Smoker [facility] 01/19/2025 11:12:02 Alcohol Use None hgainey Information [...] ICD10 Code Diagnosis IMO Codes Diagnosis Note [id number] Mika Torres NP [facility] [address] [place] [address] 01/19/2025 10:49:02 01/19/2025 17:13:10 Acute right otitis media 765914009 H66.91 [id number] Health Concerns Section Related Observation LastModified by [...] discharge [place]. [place] [address], [place], [address], [facility] - [facility], [facility] 01/19/2025 11:18:22 OBGyn Episode No OBEpisode recorded.
--- NOTE | 2025-04-09 17:26 | XR_ITS ---
PROCEDURE INFORMATION: Exam: XR Lumbosacral Spine Exam date and time: 04/09/2025 5:17 PM Age: 44 years old Clinical indication: Pain; Lumbago with sciatica; Left; Additional info: Lt lumbar radiculopathy TECHNIQUE: Imaging protocol: Radiologic exam of the lumbosacral spine. Views: 4 or 5 views. COMPARISON: CR XR HIP LT 2-3V W/PELVIS 02/27/2025 10:57 AM FINDINGS: Bones/joints: Moderate loss of intervertebral disc space with degenerative changes involving L4 through S1. The vertebral bodies are maintained in height and alignment. No evidence of acute osseous abnormality. Soft tissues: Unremarkable. IMPRESSION: 1. Moderate loss of intervertebral disc space with degenerative changes involving L4 through S1. 2. No evidence of acute osseous abnormality.
== END 2025-04-09 23:59 | disposition home or self-care (01) ==
LOC: RAD 17:19
PROVIDERS: PCP Family Medicine; Visit Provider Family Medicine
DX: M47.26 Other spondylosis with radiculopathy, lumbar region (principal); M47.27 Other spondylosis with radiculopathy, lumbosacral region; M48.8X6 Other specified spondylopathies, lumbar region
CPT/HCPCS: 72110